=== PATIENT | male | born 1985 | race Caucasian/White ===

== ENCOUNTER 2019-11-28 16:57 | Emergency (ER) | payer OTHER, SELFPAY ==
[2019-11-28 17:07] VITALS: BP 181/96; PULSE 76; RESP 18; TEMP 37.1; O2SAT 100
--- NOTE | 2019-11-28 17:07 | ED.DENTAL ---
HPI - Dental/Oral General Chief complaint: Dental/Oral Stated complaint: Tooth Ache Time Seen by Provider: 11/28/19 17:07 Source: patient and RN notes reviewed History of Present Illness HPI Narrative: Patient is a 34-year-old male that presents the urgent care with complaints of left facial swelling and dental pain. Patient states that started 1 week ago and have been intermittent. 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 Patient denies any known fever, nausea, vomiting. Patient has been using Tylenol, ibuprofen. No other acute complaints. Patient does appear to be in pain. Patient aware the plan of care. Related Data Home Medications Medication Instructions Recorded Confirmed aspirin 81 mg PO DAILY 11/28/19 11/28/19 atorvastatin 80 mg PO DAILY 11/28/19 11/28/19 carvedilol [Coreg] 6.25 mg PO BID 11/28/19 11/28/19 clopidogrel [Plavix] 75 mg PO DAILY 11/28/19 11/28/19 losartan 50 mg PO DAILY 11/28/19 11/28/19 Allergies Allergy/AdvReac Type Severity Reaction Status Date / Time No Known Allergies Allergy Mild Verified 11/28/19 17:16 Review of Systems Review of Systems: Narrative: CONSTITUTIONAL: Denies fever, chills, or sweats. EYES: Denies visual changes, redness, or discharge. ENT: Denies rhinorrhea, congestion, sore throat, or otalgia. Reports of left upper dental pain with left facial swelling CARDIOVASCULAR: Denies chest pain, palpitations, or edema. RESPIRATORY: Denies cough or dyspnea. GASTROINTESTINAL: Denies abdominal pain, nausea, vomiting, or diarrhea. GENITOURINARY: Denies dysuria or hematuria. SKIN: Denies rash or itching. MUSCULOSKELETAL: Denies back pain, joint pain, or myalgia. NEUROLOGIC: Denies headache, numbness, or weakness. All other systems reviewed are negative, except as documented in HPI. PMFSH Social History Social History Gender identity (if verbalized by the patient): Male Comments At the time of my signature, I reviewed and agree with the nursing past medical, surgical, social, and family history. There is no relevant family history pertinent to the patient complaint. Exam Narrative: Exam Narrative: GENERAL: This is a well-nourished, well-developed patient, in no apparent distress. HEAD: normocephalic, atraumatic. EYES: PERRL. Sclera clear/white. Vision is grossly intact. EARS: External ears normal NOSE: External nose normal with no obvious nasal discharge THROAT: Mucous membranes moist DENTAL: Trench mouth. Poor dental hygiene throughout. Completely avulsed dentition, down to the gumline, to the left upper quadrant. Moderate erythema and edema noted to the left upper quadrant with mild facial swelling and tenderness NECK: Neck supple CARDIOVASCULAR: Regular rate and rhythm without murmurs, gallops, or rubs. RESPIRATORY: Clear to auscultation. Breath sounds equal bilaterally. No wheezes, rales, or rhonchi. SKIN: warm, intact with no suspicious lesions or rash, good texture and turgor. NEURO: awake, alert, and oriented to person, place and time. There were no obvious focal neurologic abnormalities. EXTREMITIES: No clubbing, cyanosis, or edema. Course Vital Signs Vital signs: Vital Signs Temperature 98.7 F 11/28/19 17:07 Pulse Rate 76 11/28/19 17:07 Respiratory Rate 18 11/28/19 17:07 Blood Pressure 181/96 H 11/28/19 17:07 Pulse Oximetry 100 11/28/19 17:07 Temperature 98.7 F 11/28/19 17:07 Pulse Rate 76 11/28/19 17:07 Respiratory Rate 18 11/28/19 17:07 Blood Pressure 181/96 H 11/28/19 17:07 Pulse Oximetry 100 11/28/19 17:07 Reviewed?patient is informed that they may have pre-hypertension or hypertension based on a blood pressure reading in the department. I recommend the patient call the primary care provider listed on their discharge instructions or a physician of their choice this week to arrange follow-up for further evaluation of possib
== END 2019-11-28 17:26 | disposition home or self-care (01) ==
PROVIDERS: Emergency Provider Nurse Practitioner Family
DX: K04.7 Periapical abscess without sinus (principal); K02.9 Dental caries, unspecified; K05.10 Chronic gingivitis, plaque induced; E78.00 Pure hypercholesterolemia, unspecified; I10 Essential (primary) hypertension; I25.2 Old myocardial infarction; F17.200 Nicotine dependence, unspecified, uncomplicated
CPT/HCPCS: 99213; G0463

== ENCOUNTER 2021-09-16 14:04 | Outpatient (CLI) | payer OTHER, SELFPAY ==
--- NOTE | 2021-09-16 | ECG_ITS ---
Measurements Intervals [place] Rate: 54 P: 42 [place]: 175 QRS: -6 QRSD: 109 T: 63 QT: 437 QTc: 417 Interpretive Statements SINUS BRADYCARDIA BORDERLINE T WAVE ABNORMALITY- HIGH LATERAL LEADS BASELINE ARTIFACT- I, III, AVR, AVL, V4 BORDERLINE ECG Electronically Signed On 09-16-2021 15:22:25 [employer] RINK ATTENDANT by Eyad Santos D.O.
[2021-09-16 14:46] LABS: Anion Gap 6 mmol/L (8-16); Blood Urea Nitrogen 9 mg/dL (9-20); Calcium 9.4 mg/dL (8.4-10.2); Carbon Dioxide 28 mmol/L (22-30); Chloride 100 mmol/L (98-107); Estimated Glomerular Filt Rate > 60; Glucose 83 mg/dL (65-110); Potassium 4.2 mmol/L (3.4-5.0); Sodium 134 mmol/L (137-145)
== END 2021-09-16 14:05 | disposition home or self-care (01) ==
PROVIDERS: Visit Provider Orthopaedic Surgery Hand Surgery
DX: M25.531 Pain in right wrist (principal); R94.31 Abnormal electrocardiogram [ECG] [EKG]
CPT/HCPCS: 36415; 80048; 93005

== ENCOUNTER 2023-03-09 10:28 | Emergency (ER) | payer OTHER, SELFPAY ==
--- NOTE | ~2023-03-09 | XR_ITS ---
EXAMINATION: XR wrist RT min 3V DATE: 03/09/2023 11:01 INDICATION: Right wrist pain post bowling TECHNIQUE: Posteroanterior, ulnar deviation, oblique, and lateral views of the right wrist were obtai marcela. COMPARISON: none FINDINGS: 2-3 mm ulnar minus variance. Alignment is otherwise normal. Cannulated compression screw likely for f ixation of an old right radial styloid fracture which has healed with essentially no discernible defo rmity. No acute fractures identified. There are couple lucent lesions with some surrounding sclerosis at the lunate and proximal pole of the scaphoid which could be degenerative in etiology or related t o osteonecrosis. Joint spaces however appear relatively normal. Soft tissues are unremarkable. IMPRESSION: 1. Screw fixation of a likely old healed radial styloid fracture which is healed in essentially anato es alignment. No acute fractures identified. 2. Sclerosis surrounding central lucent lesions at the lunate and proximal pole of the scaphoid which raises concern for osteonecrosis. Reviewed, dictated and finalized at location A. IMPRESSION: 1. Screw fixation of a likely old healed radial styloid fracture which is heale d in essentially anatomic alignment. No acute fractures identified. 2. Sclerosis surrounding central lucent lesions at the lunate and proximal pole of the scaphoid which raises concern for osteonecrosis.
--- NOTE | 2023-03-09 10:30 | ED.EXTPRO ---
HPI - Extremity Problem General Chief complaint: Extremity Injury, Upper Stated complaint: Right Wrist Pain Time Seen by Provider: 03/09/23 10:30 Source: patient Mode of arrival: ambulatory Limitations: no limitations History of Present Illness HPI Narrative: Hakeem is a 38-year-old male patient presenting to clinic today with complaints of right wrist pain x1 week. He reports last week he bowled indeterminate and bowled 5 games. States that when he pulled the 5th game he could barely lift the ball was having a lot of pain to the medial and lateral wrist. Is having pain with flexion and extension of the wrist. History of wrist fracture with hardware and tendon damage. Related Data Home Medications Medication Instructions Recorded Confirmed aspirin 81 mg chewable tablet 81 mg PO DAILY 11/28/19 03/09/23 atorvastatin 80 mg tablet 80 mg PO DAILY 11/28/19 03/09/23 carvedilol 6.25 mg tablet (Coreg) 6.25 mg PO BID 11/28/19 03/09/23 losartan 50 mg tablet 50 mg PO DAILY 11/28/19 03/09/23 Allergies Allergy/AdvReac Type Severity Reaction Status Date / Time No Known Allergies Allergy Mild Verified 11/28/19 17:16 Review of Systems Review of Systems: Pertinent positives per HPI. Patient denies any fever, chills, rash, headache, visual changes, dizziness, cough, runny nose, sore throat, shortness of breath, chest pain, palpitations, nausea, vomiting, diarrhea, constipation, abdominal pain, or any urinary issues. PMFSH Social History Social History Gender identity (if verbalized by the patient): Male Comments At the time of my signature, I reviewed and agree with the nursing past medical, surgical, social, and family history. There is no relevant family history pertinent to the patient complaint. Exam Narrative: General: Well-developed, well nourished, in no apparent distress Head: Normocephalic, atraumatic. Cardio: Regular rate and rhythm, s1 and s2 normal, no murmur appreciated. Resp: Clear to auscultation bilaterally, no rhonchi, rales, wheezing or rubs. Musculoskeletal: No deformity, tender to palpation over the medial and lateral right wrist, limited flexion and extension due to pain, muscle strength strong and equal, peripheral pulse strong, no edema, no cyanosis, normal gait and station Course Course Emergency Course: Portions of this record may have been created with voice recognition software. Level of Care: Express Care Visit Vital Signs Vital signs: Vital signs reviewed MDM - Extremity (Nontraumatic) MDM Narrative Medical decision making narrative: At the time of visit patient is resting comfortably on the exam table. X-ray of the right wrist was performed and is negative for any sign of fracture or malalignment. Screw is in place in the radius. X-ray does show to lesions potentially for osteonecrosis. I suspect patient may have tendinitis with osteonecrosis. Discussed use of a wrist forearm splint and anti-inflammatories. Recommend PT. Supportive measures were discussed with the patient he voiced understanding discharge instructions and agrees to treatment plan. Differential Diagnosis Differential diagnosis: Likely other (Arthritis, tendinitis, wrist fracture, wrist sprain) Imaging Data Radiologist's impression: Close Wrist X-Ray (Signed) Esvin Mejia - 03/09/23 Launch?[place] [address] XRay Report Signed Patient: Hakeem Guardado : 1985 MR#: [id number] Age/Sex: 38 / M Acct:[id number] Loc: [facility]PC[facility]? ? ADM Date: 03/09/23Attending Dr: Ordering Physician: Ernst Hernandez APRN Date of Service: 03/09/23 Procedure(s): XR wrist RT min 3V Accession Number(s): [id number] cc: Ernst Hernandez APRN; P[employer]CR[employer] WALL TECHNICIAN PHYSICIAN~ EXAMINATION: XR wrist RT min 3V DATE: 03/09/2023 11:01 INDICA
[2023-03-09 10:39] VITALS: BP 149/81; PULSE 67; RESP 16; TEMP 36.8; O2SAT 99
[2023-03-09 10:40] VITALS: BP 149/81; PULSE 67; RESP 16; TEMP 36.8; O2SAT 99
== END 2023-03-09 11:27 | disposition home or self-care (01) ==
PROVIDERS: Emergency Provider Nurse Practitioner Family
DX: M67.833 Other specified disorders of tendon, right wrist (principal); M87.9 Osteonecrosis, unspecified
CPT/HCPCS: 73110; 99213; G0463

== ENCOUNTER → 2024-07-25 09:17 | Outpatient (REF) | payer OTHER, SELFPAY | LOC: ANHLAB 09:17 | PROVIDERS: Visit Provider Plastic Surgery | DX: L72.0 Epidermal cyst (principal) | CPT/HCPCS: 88304; 88305 ==

== ENCOUNTER 2024-10-14 23:45 | Emergency (ER) | payer OTHER, SELFPAY ==
--- NOTE | ~2024-10-14 | XR_ITS ---
XR chest 1V portable DATE: 10/15/2024 00:26 INDICATION: Chest pain. History of myocardial infarction in 2019 TECHNIQUE: Portable upright AP views on 10/15/2024 at 0022 hours COMPARISON: None FINDINGS: Heart size appears borderline; heart size isnot optimally evaluated on AP projection becaus e of magnification. There is mild pulmonary vascular congestion. Mild patchy infiltrates in the mid and lower lung zones. Consider pulmonary edema, pneumonia. No pleural effusion or pneumothorax is noted. IMPRESSION: Mild infiltrates in the mid and lower lung zones; consider pulmonary vascular congestion and pulmonary edema, pneumonia. Reviewed, dictated and finalized at location A. NG ADJUSTER IMPRESSION: Mild infiltrates in the mid and lower lung zones; consider pulmonar y vascular congestion and pulmonary edema, pneumonia.
[2024-10-14 23:45] VITALS: BP 172/108; PULSE 70; RESP 15; O2SAT 98
[2024-10-14 23:55] VITALS: O2SAT 97
[2024-10-14 23:58] VITALS: PULSE 77
--- NOTE | 2024-10-14 23:58 | ECG_ITS ---
Test Date: 2024-10-14 23:49:12 Measurements Intervals [place] Rate: 70 P: 41 [place]: 161 QRS: -18 QRSD: 116 T: 120 QT: 401 QTc: 434 Interpretive Statements SINUS RHYTHM POSSIBLE LEFT ATRIAL ENLARGEMENT [-0.1mV P WAVE IN V1/V2] INCOMPLETE RIGHT BUNDLE BRANCH BLOCK [90+ ms QRS DURATION, TERMINAL R IN V1/V2, 40+ ms S IN I/aVL/V4/V5/V6] ST DEVIATION AND MODERATE T-WAVE ABNORMALITY, CONSIDER LATERAL ISCHEMIA [-0.1+ mV T WAVE IN I/aVL/V5/V6] No previous ECG available for comparison Electronically Signed On 10-18-2024 16:00:08 DIRECTOR OF AGRONOMY by Kassidy Saldaña M.D.
[2024-10-15] MEDS: NITROGLYCERIN SL 0.4 MG TABLET SUBLINGUAL (00:07)
[2024-10-15] MEDS: ASPIRIN 81 MG CHEWABLE TABLET 182 MG PO (00:08)
[2024-10-15] MEDS: MORPHINE SULFATE (*CRX) 4 MG/ML INJ IV PUSH (00:08)
--- NOTE | 2024-10-15 00:13 | ED_ITS ---
HPI - General Adult General Chief complaint: Chest Pain Stated complaint: SUBSTERNAL CP RADIATING DOWN BILATERAL ARMS. Time Seen by Provider: 10/14/24 23:50 History of Present Illness HPI narrative: patient is a 39-year-old gentleman who presents emergency department with chief complaint of chest pain. Patient reports that he had been gambling and having some drinks this evening and started having pain in his chest. The patient reports that it radiated to both of his arms reports that felt similar to whenever he had to have a stent placed in [place] was very in 2019 patient reports that he is still followed by cardiology in [place] and reports that he does smoke cigarettes and had about 8 beers this evening patient states his pain is doing better at this time but is not 100% resolved Related Data Home Medications ?Medication ?Instructions ?Recorded ?Confirmed ?Last Taken ?Type aspirin 81 mg chewable tablet 81 mg PO DAILY 11/28/19 03/09/23 Unknown History atorvastatin 80 mg tablet 80 mg PO DAILY 11/28/19 03/09/23 Unknown History carvedilol 6.25 mg tablet (Coreg) 6.25 mg PO BID 11/28/19 03/09/23 Unknown History losartan 50 mg tablet 50 mg PO DAILY 11/28/19 03/09/23 Unknown History Allergies Allergy/AdvReac Type Severity Reaction Status Date / Time No Known Allergies Allergy Mild Verified 08/01/24 10:29 Review of Systems 2 Review of Systems: A 10 system review of systems was completed on the patient and is negative except for what is stated in the HPI. Nursing and ancillary documentation was reviewed. [facility] Social History Social History Smoking status: Never smoker Gender identity (if verbalized by the patient): Male Exam 2 Narrative: GENERAL: Well-appearing, well-nourished, and in no acute distress. HEAD: Normocephalic, atraumatic. EYES: PERRLA and EOMI. ENT: Nares clear, no rhinorrhea or epistaxis. Mucous membranes moist. NECK: Supple. CHEST: Clear to auscultation. No respiratory distress. HEART: Regular rate and rhythm. No murmur heard. Normal peripheral pulses. ABDOMEN: Soft, nontender, nondistended, normal active bowel sounds. EXTREMITIES: Normal range of motion. No edema. SKIN: Warm, dry, no rash. NEURO: No focal deficits. Alert and oriented x3. PSYCH: Normal mood and affect. Course Vital Signs Vital signs: Vital Signs Pulse Rate 70 10/14/24 23:45 Respiratory Rate 15 10/14/24 23:45 Blood Pressure 172/108 H 10/14/24 23:45 Pulse Oximetry 98 10/14/24 23:45 Oxygen Delivery Room Air 10/14/24 23:45 Temperature 36.8 C 10/15/24 00:46 Pulse Rate 70 10/15/24 02:53 Respiratory Rate 20 10/15/24 02:53 Blood Pressure 140/90 10/15/24 02:53 Pulse Oximetry 95 10/15/24 02:53 Oxygen Delivery Room Air 10/14/24 23:55 Medical Decision Making MDM Narrative Medical decision making narrative: Differential diagnosis includes ACS, gastritis, pneumothorax, pneumonia pancreatitis Laboratory studies were obtained on the patient showed normal CBC CMP was within normal limits lipase was normal troponin was 0 hour and 3 hour Patient's pain was removed with a GI cocktail the patient will be discharged home to follow-up with his primary care provider Vital Signs Vital Signs: Vital Signs Pulse Rate 70 10/14/24 23:45 Respiratory Rate 15 10/14/24 23:45 Blood Pressure 172/108 H 10/14/24 23:45 Pulse Oximetry 98 10/14/24 23:45 Oxygen Delivery Room Air 10/14/24 23:45 Temperature 36.8 C 10/15/24 00:46 Pulse Rate 70 10/15/24 02:53 Respiratory Rate 20 10/15/24 02:53 Blood Pressure 140/90 10/15/24 02:53 Pulse Oximetry 95 10/15/24 02:53 Oxygen Delivery Room Air 10/14/24 23:55 Lab Data 10/14/24 23:59 10/14/24 23:59 Labs: Lab Results 10/14/24 10/15/24 Range/Units 23:59 03:06 WBC 6.9 (4.5-10.0) K/mm3 RBC 4.31 L (4.6-6.20) M/mm3 Hgb 14.3 (14.0-18.0) g/dL Hct 39.7 L (42.0-52.0) % MCV 92.1 (80-100) fl MCH 33.2 (26-34) pg MCHC 36.0 (32-36) g/dl RDW 12.5 (11.5-14.5) % Plt Count 148 L (150-375) k/mm3 MPV 11.5 H (7.4-10.4) fl Immature Gran % (Auto) 0.3 (0-0.5) % Neut % (Auto) 50.7 (45.5-73.1) % Lymph % (Auto) 35.7 (18.3-44.2) % [place] % (Auto) 9.3 H (2.6-8.5) % Eos % (Auto) 3.3 (0-4.4) % Baso % (Auto) 0.7 (0.2-1.2) % Lymph # (Auto) 2.45 (0.9-3.2) K/mm3 [place] # (Auto) 0.6 (0.1-0.6) K/mm3 Eos # (Auto) 0.2 (0-0.3) K/mm3 Baso # (Auto) 0.1 (0.0-0.1) K/mm3 Abs Immat Gran (auto) 0.02 (0.00-0.031) K/mm3 Absolute Neuts (auto) 3.5 (1.3-6.7) K/mm3 Absolute Nucleated RBC 0.000 (0.0-0.012) K/mm3 Nucleated RBC % 0.0 (0.0-0.2) % PT 13.1 (11.1-14.7) Seconds INR 1.0 APTT 26.6 (22.3-36.8) Seconds Sodium 137 (137-145) mmol/L Potassium 3.9 (3.4-5.0) mmol/L Chloride 107 (98-107) mmol/L Carbon Dioxide 22 (22-30) mmol/L Anion Gap 8 (4-12) mmol/L BUN 14 D (9-20) mg/dL Creatinine 1.00 (0.7-1.3) mg/dL Estim Creat Clear Calc 131 ml/min Estimated GFR > 60 (59 - ) Glucose 107 (65-110) mg/dL Calcium 9.4 (8.4-10.2) mg/dL Total Bilirubin 0.6 (0.2-1.3) mg/dL AST 30 (17-59) U/L ALT 32 (6-50) U/L Alkaline Phosphatase 70 (38-126) U/L Troponin I < 0.012 < 0.012 (0.000-0.034) ng/mL NT-Pro-B Natriuret Pep 113 H (19.9-100) pg/mL Total Protein 8.0 (6.3-8.2) g/dL Albumin 4.5 (3.5-5.1) g/dL Lipase 79 (23-300) U/L Discharge Plan Discharge Clinical Impression: Atypical chest pain Patient Disposition: Home, Self-Care Condition: Stable Instructions: Antibiotic Form, Chest Pain (ED) Patient Language: [place] Prescriptions: No Action losartan 50 mg Tablet 50 mg PO DAILY atorvastatin 80 mg Tablet 80 mg PO DAILY carvedilol [Coreg] 6.25 mg Tablet 6.25 mg PO BID aspirin 81 mg Tablet,Chewable 81 mg PO DAILY Follow-up/Referrals: Wyatt,Rekha Brewer MD [Primary Care Provider] - Time of Disposition: 04:39
[2024-10-15 00:17] LABS: Alanine Aminotransferase 32 U/L (6-50); Albumin Level 4.5 g/dL (3.5-5.1); Alkaline Phosphatase 70 U/L (38-126); Anion Gap 8 mmol/L (4-12); Aspartate Amino Transferase 30 U/L (17-59); Bilirubin,Total 0.6 mg/dL (0.2-1.3); Blood Urea Nitrogen 14 mg/dL (9-20); Calcium 9.4 mg/dL (8.4-10.2); Carbon Dioxide 22 mmol/L (22-30); Chloride 107 mmol/L (98-107); Estimated CRCL calculation 131 ml/min; Estimated Glomerular Filt Rate > 60; Glucose 107 mg/dL (65-110); Lipase 79 U/L (23-300); Potassium 3.9 mmol/L (3.4-5.0); Sodium 137 mmol/L (137-145)
[2024-10-15 00:23] LABS: Basophils Absolute Auto 0.1 K/mm3 (0.0-0.1); Basophils Percent Auto 0.7 % (0.2-1.2); Eosinophils Absolute Auto 0.2 K/mm3 (0-0.3); Eosinophils Percent Auto 3.3 % (0-4.4); Hematocrit 39.7 % (42.0-52.0); Hemoglobin 14.3 g/dL (14.0-18.0); Immature Granulocyte Absolute 0.02 K/mm3 (0.00-0.031); Immature Granulocyte Percent A 0.3 % (0-0.5); Lymphocytes Absolute Auto 2.45 K/mm3 (0.9-3.2); Lymphocytes Percent Auto 35.7 % (18.3-44.2); Mean Corpuscular Hemoglobin 33.2 pg (26-34); Mean Corpuscular Volume 92.1 fl (80-100); Mean Platelet Volume 11.5 fl (7.4-10.4); Monocytes Absolute Auto 0.6 K/mm3 (0.1-0.6); Monocytes Percent Auto 9.3 % (2.6-8.5); Neutrophils Absolute Auto 3.5 K/mm3 (1.3-6.7); Neutrophils Percent Auto 50.7 % (45.5-73.1); Platelet Count Result 148 k/mm3 (150-375); Red Blood Count 4.31 M/mm3 (4.6-6.20); Red Cell Distribution Width 12.5 % (11.5-14.5); White Blood Count 6.9 K/mm3 (4.5-10.0)
[2024-10-15 00:26] LABS: NT Pro B Type Natriuretic Pept 113 pg/mL (19.9-100)
[2024-10-15 00:36] LABS: Partial Thromboplastin Time 26.6 Seconds (22.3-36.8); Prothrombin Time 13.1 Seconds (11.1-14.7)
[2024-10-15 00:42] LABS: Troponin I < 0.012 ng/mL (0.000-0.034)
[2024-10-15 00:46] VITALS: BP 165/96; PULSE 74; RESP 21; TEMP 36.8; O2SAT 95
[2024-10-15] MEDS: BELLADONNA ALK/PHENOB ELIX 10 ML, MAG HYDROX/ALUMINUM HYD/SIMETH 30 ML, LIDOCAINE 2% VI... PO (01:02)
[2024-10-15 02:53] VITALS: BP 140/90; PULSE 70; RESP 20; O2SAT 95
--- NOTE | 2024-10-15 03:22 | ECG_ITS ---
Test Date: 2024-10-15 03:25:10 Measurements Intervals [place] Rate: 64 P: 8 [place]: 149 QRS: -7 QRSD: 117 T: 93 QT: 428 QTc: 443 Interpretive Statements SINUS RHYTHM INCOMPLETE RIGHT BUNDLE BRANCH BLOCK [90+ ms QRS DURATION, TERMINAL R IN V1/V2, 40+ ms S IN I/aVL/V4/V5/V6] ST DEVIATION AND MODERATE T-WAVE ABNORMALITY, CONSIDER LATERAL ISCHEMIA Compared to ECG 10/14/2024 23:49:12 NO SIGNIFICANT CHANGES Electronically Signed On 10-18-2024 16:03:30 WASTE WATER TREATMENT PLANT OPERATOR by Kassidy Saldaña M.D.
[2024-10-15 03:34] LABS: Troponin I < 0.012 ng/mL (0.000-0.034)
[2024-10-15 04:50] VITALS: BP 147/89; PULSE 75; RESP 15; O2SAT 96
--- OUTSIDE RECORDS SUMMARY | 2024-10-22 00:15 | XMS_ITS | Encounter Summary ---
Author Organization [facility] Healthcare Address [address] [place] [address] Care Team Providers Care Front Maker Lockstitch Name Role Phone Unknown, Notinfile Primary Care Provider Unavail able Reason for Visit * Reason Comments Chest Pain Encounter Details Date Type Department Care Team (Late st Contact Info) Description 04/26/2019 3:55 PM CDT - 04/26/2019 4:55 PM CDT Surgery [facility] Cardiology [address] [place] [address] Jason Faustin MD [address] [address] LEFT HEART CATHETERIZATION WITH CORONARY ANGIOGRAPHY AND WITH OR WITHOUT LEFT VENTRICULOGRAM [address] Surgery Details Date/Time Status Location OR Service Patient Class Case Class Case Type Trauma Case? 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 Cardiovascular Emergency Emergent Panel 1 Procedure LRB Anes Op Region Wound Class Comments LEFT HEART CATHETERIZATION W ITH CORONARY ANGIOGRAPHY AND WITH OR WITHOUT LEFT VENTRICULOGRAM [address]7624 N/A Conscious Sedation Surgeon Surgeon Role Service Panel Jason Faustin MD Primary Cardiovascular 1 documented in this encounter Social History Tobacco Use Types Packs/Day Years Used Date Smoking Tobacco: Every Day Cigarettes 1.5 23 Tobacco Cessation:Ready to Q uit: No; Counseling Given: No Comments:refused Alcohol Use Standard Drinks/Week Comments Not Currently 0 (1 standard drink = 0.6 oz pur e alcohol) Sex and Gender Information Value Date Recorded Sex Assigned at Not on file 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 Gender Identity Not on file Sexual Orientation Not on file documented as of this encounter Last Filed Vital Signs Vital Sign Reading Time Taken Comments Blood Pressure 143/86 04/26/2019 4:45 PM CDT Pulse 77 04/26/2019 4:45 PM CDT Temperature 36.6 ??C (97.9 ??F) 04/26/2019 4:20 PM CD T Respiratory Rate 17 04/26/2019 4:45 PM CDT Oxygen Saturation 98% 04/26/2019 4:45 PM CDT Inhaled Oxygen Concentration - - Weight 128 kg (282 lb 3 oz) 04/26/2019 4:20 PM C DT Height 188 cm (6' 2 ) 04/26/2019 4:20 PM CDT Body Mass Index 35.96 04/28/2019 5:00 AM CDT documented in this encounter Discharge Summaries * Jason Faustin MD - 04/28/2019 7:31 AM CDT Inpatient Discharge Summary BRIEF OVERVIEW Admitting Provider: Jason Faustin MD Discharge Provider: Jason Faustin MD Primary Care Physician at Discharge: Notinfile Unknown None Admission Date: 04/26/2019 Discharge Date: 04/28/2019 Admission Location: [facility] Primary Discharge Diagnosis: 1. SEVERE CAD. ??Anterior STEMI. ??Last [facility] on 04/26/2019. ? EKG. ??04/26/2019. ??Mild [address] elevations in the anterolateral leads. ??Normal sinus rhythm. ? LAD. ??100% acute proximal occlusion. ??3.5 mm Xience BERNADETTE post dilated to 4 mm. ? Circumflex. ??Dominant circulation. ??30% plaquing ? LVEDP of 30 mmHg with no gradient across aortic valve ? Left ventriculargram demonstrates a ejection fraction of 35% with anterior apical hypokinesis to akinesis. ? Echo. 04/27/2019. EF 57%. No wall motion abnormalities. No valvular abnormalities. 2. Tobacco abuse 3. NKDA 4. FHx:?Father had an LA at age 35 ?? Secondary Discharge Diagnosis: No Active Problems: There are no active problems currently on the Problem List. Please update the Problem List and refresh. DETAILS OF HOSPITAL STAY Presenting Problem/History of Present Illness: Chest pain Hospital Course: Patient is a pleasant 34-year-old white male who I am meeting for the 1st time. He presented with chest pain. His EKG was changing rapidly. He had intermittent ST elevations. When I saw him in the emergency room he was still having chest pain. I took him emergently to the rn labor delivery. He had 100% acutely occluded LAD. He underwent successful stenting. His peak troponin was 2. We did an echocardiogram 1 day after his LA and his ejection fraction was normal at 57%. There was no noticeable wall motion abnormalities. On his Left ventriculargram his ejection fraction was only 35%. He otherwise feels good. No bad orthopnea, PND or lower extremity edema. Active Issues Requiring Follow-up: None Test Results Pending at Discharge: Order Current Status POCT activated clotting time Preliminary result Operative Procedures Performed: Procedure(s): LEFT HEART CATHETERIZATION WITH CORONARY ANGIOGRAPHY AND WITH OR WITHOUT LEFT VENTRICULOGRAM 44[address] Other Procedures: See chart Pertinent Test Results: See chart Discharge Details Physical Exam at Discharge: Discharge Condition: good Pulse: 55 Resp: 20 BP: 149/83 Temp: 36.4 ??C (97.5 ??F) Weight: 127.1 kg (280 lb 3.3 oz) Pertinent Exam Findings at Discharge: Physical Exam Constitutional: He is oriented to person, place, and time. He appears well- developed and well-nourished. No distress. HENT: Head: Normocephalic and atraumatic. Eyes: EOM are normal. Neck: Normal range of motion. Neck supple. Cardiovascular: Normal rate and regular rhythm. Exam reveals no gallop and no friction rub. No murmur heard. Pulmonary/Chest: Effort normal and breath sounds normal. No respiratory distress. He has no rales. Abdominal: Soft. Bowel sounds are normal. He exhibits no distension. There is no tenderness. There is no guarding. Musculoskeletal: He exhibits no edema. Neurological: He is alert and oriented to person, place, and time. Skin: No rash noted. Psychiatric: He has a normal mood and affect. Discharge Disposition: Discharge to home or self care Code Status at Discharge: full Discharge Instructions: Diet Instructions Heart Healthy diet-see attached papers .TOI Muller, [facility] [phone] ?? follow-up in 2 weeks with me ?? Patient take all medicines as prescribed ?? Patient contact us with any problems or concerns Discharge Medications: Current Medications TAKE these medications aspirin 81 mg enteric coated tablet Take 1 tablet (81 mg total) by mouth daily atorvastatin 80 mg tablet Commonly known as: LIPITOR Take 1 tablet (80 mg total) by mouth nightly carvedilol 6.25 mg tablet Commonly known as: COREG Take 1 tablet (6.25 mg total) by mouth 2 (two) times a day famotidine 20 mg tablet Commonly known as: PEPCID Take 1 tablet (20 mg total) by mouth daily as needed for indigestion or heartburn losartan 50 mg tablet Commonly known as: COZAAR Take 1 tablet (50 mg total) by mouth daily ticagrelor 90 mg tablet Commonly known as: BRILINTA Take 1 tablet (90 mg total) by mouth 2 (two) times a day Outpatient Follow-Up: No future appointments. Contact Information for Follow-ups Follow-up with providerFollow up with Dr. Faustin's nurse in 2 weeks Next Steps: Follow up Instructions: Follow up with Dr. Faustin's nurse in 2 weeks Questions: Instructions for follow-up: Follow up with Dr. Faustin's nurse in 2 weeks Notinfile Unknown Relationship: PCP - General Next Steps: Follow up documented in this encounter Discharge Instructions * Discharge Instructions* Barby Salazar RN - 04/28/2019 10:36 AM CDT Cardiac Catheterization Discharge Instructions Follow Up Appointment ??? [facility] will notify you of your appointment. Please contact them at [phone] if you do not receive an appointment within 7 to10 days. Activity ??? Increase your activity as tolerated. ??? No driving for 24 hours,unless you are told otherwise by your doctor. ??? No lifting over 5 to 10 pounds for 1 week. ??? If the test was done from your wrist: Do NOT lift over two gallons of milk or bend your affected wrist for five days. ??? No strenuous exercise for 1 week. This includes lifting, straining or activity greater than walking. ??? Begin cardiac rehab in 1 to 2 weeks, unless told otherwise by your doctor. Hydration In order to prevent kidney damage, it is important to hydrate after your procedure. Please drink anadditional cups of water today. Not applicable, hydration completed. Insertion Site Care ??? Check your puncture site daily. If your dressing is not removed before you are discharged, please remove it at home. ??? Keep your puncture site clean and dry. Do not apply powder, ointment, or lotion to the site for1 week. ??? No tub baths, swimming pools, or hot tubs for 1 week. Do NOT submerge wrist for one week if thetest was done from your wrist. ??? If the test was done from your wrist: You may remove the TR-Band the morning after your procedure. ??? If a large amount of bleeding occurs at your puncture site, hold firm pressure and call 911. Medications ??? Follow these precautions while you are taking anticoagulants (Coumadin, Pradaxa, Eliquis, Xarelto, Plavix, Effient, or Aspirin): Get periodic blood tests; use only an electric razor; avoid activities involving tools which will cut; and call your doctor if you notice blood in your urine or stool. General Instructions ??? Carry your stent card with you at all times. ??? DO NOT smoke or use tobacco products. DO NOT use products containing nicotine (nicotine patches, gum, inhalers, lozenges, electronic cigarettes, etc.), unless approved by your doctor. When To Call Your Doctor ??? Increased swelling or unusual pain at your puncture site or discoloration below your puncture site ??? Blood in your urine or stool ??? Any questions or concerns If for any reason you feel your life is in danger, call 911 immediately. * Discharge Instr - Diet* Anu Shabazz RD - 04/27/2019 1:21 PM CDT Heart Healthy diet-see attached papers .Anu HOBSON, TOI, [facility] [phone] * Attachments The following attachments cannot be sent through Care Everywhere. * DASH Eating Plan (Electric Distribution Checker) (Micronesian) * Cholesterol and Your Health (Electric Distribution Checker) (Micronesian) * How to Stop Smoking (Electric Distribution Checker) (Micronesian) * Heart Failure (Electric Distribution Checker) (Micronesian) * Aspirin (By mouth) (Micronesian) * Carvedilol (By mouth) (Micronesian) * Losartan (By mouth) (Micronesian) * Famotidine (By mouth) (Micronesian) * Ticagrelor (By mouth) (Micronesian) * Atorvastatin (By mouth) (Micronesian) documented in this encounter Medications at Time of Discharge aspirin 81 mg enteric coated tabletIndication s:cardiovascular disease Take 1 tablet (81 mg total) by mouth daily 30 tablet 11 04/28/2019 4 atorvastatin (LIPITOR) 80 mg tabletIndication s:myocardial infarction prevention Take 1 tablet (80 mg total) by mouth nightly 90 tablet 3 04/28/2019 4 carvedilol (COREG) 6.25 mg tabletIndication s:cardiovascular disease Take 1 tablet (6.25 mg total) by mouth 2 (two) times a day 180 tablet 3 04/28/2019 4 famotidine (PEPCID) 20 mg tabletIndication s:Prevention of Stress Ulcer Take 1 tablet (20 mg total) by mouth daily as needed for indigestion or heartburn 30 tablet 11 04/28/2019 4 losartan (COZAAR) 50 mg tabletIndication s:cardiovascular disease Take 1 tablet (50 mg total) by mouth daily 90 tablet 3 04/28/2019 4 ticagrelor (BRILINTA) 90 mg tabletIndication s:cardiovascular disease Take 1 tablet (90 mg total) by mouth 2 (two) times a day 60 tablet 8 04/28/2019 4 documented as of this encounter Ordered Prescriptions Prescription Sig Dispense Quantity Refills Last Filled Start Date End Date ticagrelor (BRILINTA) 90 mg tabletIndications: cardiovascular disease Take 1 tablet (90 mg total) by mouth 2 (two) times a day 60 tablet 8 04/28/2019 4 ticagrelor (BRILINTA) 90 mg tabletIndications: cardiovascular disease Take 1 tablet (90 mg total) by mouth 2 (two) times a day 180 tablet 2 04/28/2019 9 losartan (COZAAR) 50 mg tabletIndications: cardiovascular disease Take 1 tablet (50 mg total) by mouth daily 90 tablet 3 04/28/2019 4 famotidine (PEPCID) 20 mg tabletIndications: Prevention of Stress Ulcer Take 1 tablet (20 mg total) by mouth daily as needed for indigestion or heartburn 30 tablet 11 04/28/2019 4 carvedilol (COREG) 6.25 mg tabletIndications: cardiovascular disease Take 1 tablet (6.25 mg total) by mouth 2 (two) times a day 180 tablet 3 04/28/2019 4 atorvastatin (LIPITOR) 80 mg tabletIndications: myocardial infarction prevention Take 1 tablet (80 mg total) by mouth nightly 90 tablet 3 04/28/2019 4 aspirin 81 mg enteric coated tabletIndications: cardiovascular disease Take 1 tablet (81 mg total) by mouth daily 30 tablet 11 04/28/2019 4 documented in this encounter Discharge Disposition Disposition Code Departure Means Destination Discharge to home or self care documented in this encounter Progress Notes * Jasmina Mckeon, RD - 04/28/2019 9:49 AM CDT Nutrition Note Reason for Assessment: Follow Up and Diet Education Encounter Date: 04/28/19 9:49 AM Nutrition Assessment and Plan: Patient is a 34 y.o. male. Admit Dx: CP. Admitted on 04/26/2019, current LOS is 2 days. Current diet order: Adult Diet Special; Low Fat, Low Chol, 2 GM Sodium Food Allergies: NKFA Pt intake is adequate. 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 Voiced concerns about ot finding foods he likes, pt set goals for diet change (reduce %fat of milk, try diet soda, limit processed meats/try leancuts of meats)) Goals: Patient/caregiver able to teach back understanding of role of diet in disease process prior to discharge, Adequate nutrition to meet estimated needs by next assessment Nutrition Related ADL & IDL Ability to Prepare Meals: Yes Ability to Self-Feed: Yes Diet History Diet Experience Previously prescribed diets: denies Previous Diet / Nutrition Education / Counseling: denies Self-selected diet(s) followed: regular Food Allergies: NKFA Previously prescribed diets: denies Previous Diet / Nutrition Education / Counseling: denies Self-selected diet(s) followed: regular Food Intake Breakfast: pt reports he has one meal/day. 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 Energy Needs (RD entered): 2200 kcal(adjusted for weight loss) ?? MSJ Total Energy Needs: 2731.2 kcal using Activity Factor: 1.2 and Weight Used for Equation Calculations (RD Determined): 127.1 kg (280 lb 3.3 oz)(standing scale 04/28/19) ?? Total Protein Estimated Needs (gm): 101.68 Protein Needs Based on g/k.8 Type of Weight Used for Estimated Protein : Current. ?? Fluid Needs Based on : (2000 mL, CHF). Nutrition Providing: ??? Nutrition Providing/Calorie Count ??? Weight: 127.1 kg (280 lb 3.3 oz) ??? PO Calories: (po intakes 75% of meals since admit 04/26/19) Objective Anthropometrics Weight: 127.1 kg (280 lb 3.3 oz) Admission Weight : 128 kg Weight Change: -1.44 kg (-3.19 lbs) Usual Body Weight: 127 kg (280 lb) IBW/kg (Calculated) : 86.2 kg Weight Changes/History: (pt reports weight has been stable for the past 5 years) Height: 188 cm (6' 2.02 ) Weight in (lb) to have BMI = 25: 194.4 BMI (Calculated): 36 BMI Classification: BMI 35.0 - 39.9 Obese Class II 3 Day I/O Summary 04/26 1900 - 04/28 0659 In: 4085 [P.O.:2650; I.V.:1435] Out: 3200 [Urine:3200] Temp: 36.6 ??C (97.9 ??F) No past medical history on file. Medications and Lab Review: Patient???s Active Medications have been reviewed. Nutrition Related Labs have been reviewed. Diet Instructions Heart Healthy diet-see attached papers .Anu Shabazz MSRDN, LD, [facility] [phone] Jasmina Mckeon, MS RDN LD Cosigned by Rekha Julien RD at 04/29/2019 12:53 PM CDT * Danna Little LCSW - 04/27/2019 4:07 PM CDT Consult received to assist as patient is from [id number] and has no insurance. HCFS met with patient and provided hospital assistance application. SW met with the patient to discuss consult. Patient state no needs from social work at this time and is hopeful to discharge home tomorrow. Family at bedside. The patient lives in [place], [place]. Social Work will remain available and assist further if needed. Danna Little LCSW 04/27/19 4:12 PM * Anu Shabazz RD - 04/27/2019 1:22 PM CDT Nutrition Note Reason for Assessment: Consult/Referral: CAD diet ed Encounter Date: 04/27/19 1:22 PM Nutrition Assessment and Plan: Patient is a 34 y.o. male. Admit Dx: CP. Admitted on 04/26/2019, current LOS is 1 days. Nursing Admission Screen: Nutrition Screen What diet do you follow at home?: regular Have You Recently Lost Weight Without Trying?: No Poor Oral Intake for Four or More Days Prior to Admission: No Current diet order: Adult Diet Special; Low Fat, Low Chol, 2 GM Sodium Monitoring and Evaluation: Other (comment)(Received consult for CAD diet ed; pt states primary goalis to quit smoking but accepted literature for his sister, whom he lives with) Nutrition Related ADL & IDL Ability to Prepare Meals: Other (Comment)(Pt or sister prepare meals) Ability to Self-Feed: Yes Diet History Eating Environment Eats Alone: Lives sister and often eats with her Objective Anthropometrics Weight: 128.5 kg (283 lb 6.4 oz) Admission Weight : 128 kg Weight Change: 0.54 kg (1.21 lbs) IBW/kg (Calculated) : 86.2 kg Height: 188 cm (6' 2 ) Weight in (lb) to have BMI = 25: 194.3 BMI (Calculated): 36.4 3 Day I/O Summary 04/25 1900 - 04/27 0659 In: 1935 [I.V.:1935] Out: 400 [Urine:400] Temp: 36.5 ??C (97.7 ??F) No past medical history on file. Nursing Assessment: Guillaume Scale Score: 22 Skin Integrity: Puncture Diet Instructions Heart Healthy diet-see attached papers .TOI Muller, CNSC [phone] TOI Muller, CNSC * Jason Faustin MD - 04/27/2019 6:44 AM CDT Progress Note Patient Name: Jose Guardado Date of : 1985 Primary Physician: Ayden Unknown Admission Date: 04/26/2019 Date of Progress Note: 04/27/2019 Subjective Jose Guardado is a 34 y.o. male seen on rounds this morning. He had no acute events overnight, and denies chest pain or shortness of breath at this time. Patient has not had any nausea, vomiting.He did not sleep well. He had absolutely no chest pain overnight. He did have some ventricular ectopy. Nothing that cause any symptoms. He has been hemodynamically stable. His troponin did jump up to2 which is not unexpected given the fact that he had a proximal 100% LAD occlusion. Objective Scheduled Meds: aspirin 81 mg oral Daily atorvastatin 80 mg oral Nightly carvedilol 6.25 mg oral BID enoxaparin 40 mg subcutaneous Daily-2100 losartan 50 mg oral Daily nicotine 1 patch transdermal Daily pantoprazole DR 40 mg oral Before breakfast ticagrelor 90 mg oral BID PRN Meds: ??? acetaminophen ??? atropine ??? diphenhydrAMINE ??? famotidine ??? fentaNYL ??? hydrALAZINE ??? midazolam ??? ondansetron ??? phenylephrine Mechanical DVT Prevention ] Intake/Output Summary (Last 24 hours) at 04/27/2019 0644 Last data filed at 04/27/2019 0205 Gross per 24 hour Intake 1935 ml Output 400 ml Net 1535 ml BP 134/81 (BP Location: Left arm, Patient Position: Lying) Pulse 63 Temp 36.8 ??C (98.3 ??F) (Oral) Resp 22 Ht 188 cm (6' 2 ) Wt 128 kg (282 lb 3 oz) SpO2 96% BMI 36.23 kg/m?? Physical Exam Constitutional: He is oriented to person, place, and time. He appears well- developed and well-nourished. No distress. HENT: Head: Normocephalic and atraumatic. Eyes: EOM are normal. Neck: Normal range of motion. Neck supple. Cardiovascular: Normal rate and regular rhythm. Exam reveals no gallop and no friction rub. No murmur heard. Pulmonary/Chest: Effort normal and breath sounds normal. No respiratory distress. He has no rales. Abdominal: Soft. Bowel sounds are normal. He exhibits no distension. There is no tenderness. There is no guarding. Musculoskeletal: He exhibits no edema. Neurological: He is alert and oriented to person, place, and time. Skin: No rash noted. Psychiatric: He has a normal mood and affect. Diagnostics Recent Results (from the past 24 hour(s)) CBC with auto differential Collection Time: 04/26/19 3:04 PM Result Value Ref Range WBC 6.0 3.8 - 9.9 K/cumm Hgb 15.4 13.0 - 17.5 g/dL Hct 44.1 38.9 - 50.3 % Plt 174 150 - 400 K/cumm MPV 11.1 9.1 - 12.3 fL RBC 4.78 4.30 - 5.80 M/cumm MCV 92.3 81.3 - 96.4 fL MCH 32.2 27.1 - 33.3 pg MCHC 34.9 32.3 - 35.7 g/dL RDW CV 12.2 11.1 - 14.9 % RDW SD 41.3 35.7 - 48.1 fL NRBC Abs 0.00 0.00 - 0.01 K/cumm Comprehensive metabolic panel Collection Time: 04/26/19 3:04 PM Result Value Ref Range Sodium 138 135 - 145 mmol/L Potassium, pl 3.9 3.3 - 4.9 mmol/L Chloride 100 97 - 110 mmol/L CO2 22 22 - 32 mmol/L Anion Gap 16 (H) 2 - 15 mmol/L BUN 13 8 - 25 mg/dL Creatinine 1.23 0.80 - 1.30 mg/dL Glucose 131 70 - 199 mg/dL Calcium 9.8 8.5 - 10.3 mg/dL Bilirubin, total 0.6 0.1 - 1.2 mg/dL Protein, pl 8.0 6.5 - 8.5 g/dL Albumin 4.7 3.5 - 5.0 g/dL Alk phos 65 40 - 130 Units/L ALT 34 7 - 55 Units/L AST 32 10 - 50 Units/L Troponin T Collection Time: 04/26/19 3:04 PM Result Value Ref Range Troponin T <0.01 0.00 - 0.01 ng/mL Differential, auto Collection Time: 04/26/19 3:04 PM Result Value Ref Range Neutrophil absolute 3.2 1.7 - 6.5 K/cumm Immature granulocyte absolute 0.0 0.0 - 0.1 K/cumm Lymphocytes absolute 2.0 0.8 - 3.3 K/cumm Monocyte absolute 0.5 0.2 - 0.8 K/cumm Eosinophils absolute 0.1 0.0 - 0.5 K/cumm Basophils, abs 0.0 0.0 - 0.1 K/cumm Neutrophils 53.9 % Immature granulocytes 0.7 % Lymphocytes 33.9 % Monocytes 8.5 % Eosinophils 2.2 % Basophils 0.8 % eGFR Collection Time: 04/26/19 3:04 PM Result Value Ref Range GFR 76 mL/min/1.73 m2 ECG 12 lead Collection Time: 04/26/19 3:04 PM Result Value Ref Range Systolic Blood Pressure 144 mmHg Diastolic Blood Pressure 96 mmHg Ventricular Rate EKG/Min 86 BPM Atrial Rate 86 BPM NH-Interval (MSEC) 162 ms QRS-Interval (MSEC) 100 ms QT-Interval (MSEC) 388 ms QTc 464 ms P Stan[place] 45 degrees R Stanfield -19 degrees T Stanfield 14 degrees Diagnosis Normal sinus rhythm with sinus arrhythmia Incomplete right bundle branch block Septal infarct , age undetermined Abnormal ECG No previous ECGs available Confirmed by Gwyn MENDEZ DAN L. ([id number]) on 04/26/2019 4:02:17 PM ECG 12 lead Collection Time: 04/26/19 3:07 PM Result Value Ref Range Systolic Blood Pressure 144 mmHg Diastolic Blood Pressure 96 mmHg Ventricular Rate EKG/Min 75 BPM Atrial Rate 75 BPM NH-Interval (MSEC) 162 ms QRS-Interval (MSEC) 102 ms QT-Interval (MSEC) 390 ms QTc 435 ms P [place] 52 degrees R Stanfield -20 degrees T [place] 11 degrees Diagnosis Normal sinus rhythm with sinus arrhythmia Incomplete right bundle branch block Borderline ECG When compared with ECG of 26-APR-2019 15:04, No significant change was found Confirmed by Gwyn MENDEZ DAN L. ([id number]) on 04/26/2019 4:02:09 PM POCT creatinine Collection Time: 04/26/19 3:13 PM Result Value Ref Range Creatinine POC 1.2 0.4 - 1.2 mg/dL CBC with auto differential Collection Time: 04/26/19 3:38 PM Result Value Ref Range WBC 7.3 3.8 - 9.9 K/cumm Hgb 14.4 13.0 - 17.5 g/dL Hct 40.7 38.9 - 50.3 % Plt 150 150 - 400 K/cumm MPV 11.1 9.1 - 12.3 fL RBC 4.46 4.30 - 5.80 M/cumm MCV 91.3 81.3 - 96.4 fL MCH 32.3 27.1 - 33.3 pg MCHC 35.4 32.3 - 35.7 g/dL RDW CV 12.2 11.1 - 14.9 % RDW SD 40.6 35.7 - 48.1 fL NRBC Abs 0.00 0.00 - 0.01 K/cumm Differential, auto Collection Time: 04/26/19 3:38 PM Result Value Ref Range Neutrophil absolute 5.0 1.7 - 6.5 K/cumm Immature granulocyte absolute 0.0 0.0 - 0.1 K/cumm Lymphocytes absolute 1.5 0.8 - 3.3 K/cumm Monocyte absolute 0.7 0.2 - 0.8 K/cumm Eosinophils absolute 0.1 0.0 - 0.5 K/cumm Basophils, abs 0.0 0.0 - 0.1 K/cumm Neutrophils 68.3 % Immature granulocytes 0.3 % Lymphocytes 20.3 % Monocytes 9.0 % Eosinophils 1.4 % Basophils 0.7 % ECG 12 lead Collection Time: 04/26/19 4:38 PM Result Value Ref Range Ventricular Rate EKG/Min 79 BPM Atrial Rate 79 BPM NH-Interval (MSEC) 162 ms QRS-Interval (MSEC) 112 ms QT-Interval (MSEC) 382 ms QTc 438 ms P Stan[place] 3 degrees R Stanfield 47 degrees T [place]field 4 degrees Diagnosis Normal sinus rhythm Incomplete right bundle branch block Septal infarct , age undetermined Possible Inferior infarct , age undetermined Abnormal ECG When compared with ECG of 26-APR-2019 15:07, Borderline criteria for Inferior infarct are now Present ST no longer depressed in Inferior leads Nonspecific T wave abnormality now evident in Lateral leads Confirmed by Gwyn MENDEZ, SURINDER Brewer ([id number]) on 04/26/2019 5:56:20 PM Troponin T Collection Time: 04/26/19 7:23 PM Result Value Ref Range Troponin T 0.87 (H) 0.00 - 0.01 ng/mL Troponin T Collection Time: 04/27/19 4:58 AM Result Value Ref Range Troponin T 2.05 (H) 0.00 - 0.01 ng/mL Comprehensive metabolic panel Collection Time: 04/27/19 4:58 AM Result Value Ref Range Sodium 139 135 - 145 mmol/L Potassium, pl 4.2 3.3 - 4.9 mmol/L Chloride 103 97 - 110 mmol/L CO2 20 (L) 22 - 32 mmol/L Anion Gap 16 (H) 2 - 15 mmol/L BUN 12 8 - 25 mg/dL Creatinine 0.92 0.80 - 1.30 mg/dL Glucose 105 70 - 199 mg/dL Calcium 9.2 8.5 - 10.3 mg/dL Bilirubin, total 0.6 0.1 - 1.2 mg/dL Protein, pl 7.1 6.5 - 8.5 g/dL Albumin 4.2 3.5 - 5.0 g/dL Alk phos 59 40 - 130 Units/L ALT 35 7 - 55 Units/L AST 116 (H) 10 - 50 Units/L CBC with auto differential Collection Time: 04/27/19 4:58 AM Result Value Ref Range WBC 9.9 3.8 - 9.9 K/cumm Hgb 14.3 13.0 - 17.5 g/dL Hct 40.8 38.9 - 50.3 % Plt 168 150 - 400 K/cumm MPV 11.4 9.1 - 12.3 fL RBC 4.43 4.30 - 5.80 M/cumm MCV 92.1 81.3 - 96.4 fL MCH 32.3 27.1 - 33.3 pg MCHC 35.0 32.3 - 35.7 g/dL RDW CV 12.5 11.1 - 14.9 % RDW SD 42.1 35.7 - 48.1 fL NRBC Abs 0.00 0.00 - 0.01 K/cumm Magnesium Collection Time: 04/27/19 4:58 AM Result Value Ref Range Magnesium 2.0 1.6 - 2.6 mg/dL Differential, auto Collection Time: 04/27/19 4:58 AM Result Value Ref Range Neutrophil absolute 6.4 1.7 - 6.5 K/cumm Immature granulocyte absolute 0.0 0.0 - 0.1 K/cumm Lymphocytes absolute 2.3 0.8 - 3.3 K/cumm Monocyte absolute 0.9 (H) 0.2 - 0.8 K/cumm Eosinophils absolute 0.2 0.0 - 0.5 K/cumm Basophils, abs 0.1 0.0 - 0.1 K/cumm Neutrophils 64.9 % Immature granulocytes 0.4 % Lymphocytes 23.1 % Monocytes 9.5 % Eosinophils 1.5 % Basophils 0.6 % eGFR Collection Time: 04/27/19 4:58 AM Result Value Ref Range GFR >90 mL/min/1.73 m2 Problem List Active Problems: No Active Problems: There are no active problems currently on the Problem List. Please update the Problem List and refresh. Assessment/Plan 34-year-old white male who presents with an acute anterior STEMI. 04/26/2019. Peak troponin 2. ?? 1. SEVERE CAD. Anterior STEMI. Last [facility] on 04/26/2019. ? EKG. ??04/26/2019. ??Mild [address] elevations in the anterolateral leads. ??Normal sinus rhythm. ? LAD. 100% acute proximal occlusion. 3.5 mm Xience BERNADETTE post dilated to 4 mm. ? Circumflex. Dominant circulation. 30% plaquing ? LVEDP of 30 mmHg with no gradient across aortic valve ? Left ventriculargram demonstrates a ejection fraction of 35% with anterior apical hypokinesis to akinesis. 2. Tobacco abuse 3. NKDA 4. FHx:?Father had an LA at age 35 Recommendations: ?? echocardiogram today ?? Possible transfer to [address] [place] [address] plan discussed with the patient. Jason Faustin MD 04/27/2019 6:44 AM documented in this encounter H&P Notes * Jason Faustin MD - 04/26/2019 6:24 AM CDT H&P Note Patient Name: Jose Guardado Date of : 1985 Primary Physician: Ayden Unknown Admission Date: 04/26/2019 Chief Complaint Chief Complaint Patient presents with ??? Chest Pain HPI Jose Guardado is a 34 y.o. male here for evaluation of chest pain. The patient has never seen acardiologist before. He was in his usual state of health when he went to go driving his truck. 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 He had severe 7/10 chest pain. It radiated to his neck and jaw. He was very short of breath. He had nausea but no vomiting. He was diaphoretic. He had no bad orthopnea, PND or lower extremity edema. He had no bad palpitations, dizzy spells or syncope. He went to the emergency room. His initial EKG showed some ST elevations in the anterolateral leads. He did have some reciprocal ST changes in inferior leads. His EKG improved. He still continued to have 7/10 chest pain and he looked very ill. I talked to the patient about doing a heart catheterization. Patient agree. Sedation Plan ASA 3 - Severe systemic disease Mallampati class: II. Risks, benefits, and alternatives discussed with patient. Past Medical History No major medical problems Past Surgical History Hand fracture that required surgery Medications None Allergies No known drug allergies Family History Father had an LA at age 35 Social History Social History Socioeconomic History ??? Marital status: Spouse name: Not on file ??? Number of children: Not on file ??? Years of education: Not on file ??? Highest education level: Not on file Occupational History ??? Not on file Social Needs ??? Financial resource strain: Not on file ??? Food insecurity: Worry: Not on file Inability: Not on file ??? Transportation needs: Medical: Not on file Non-medical: Not on file Tobacco Use ??? Smoking status: Current Every Day Smoker Packs/day: 1.50 Years: 23.00 Pack years: 34.50 ??? Tobacco comment: refused Substance and Sexual Activity ??? Alcohol use: Not Currently ??? Drug use: Never ??? Sexual activity: Defer Lifestyle ??? Physical activity: Days per week: Not on file Minutes per session: Not on file ??? Stress: Not on file Relationships ??? Social connections: Talks on phone: Not on file Gets together: Not on file Attends latter day service: Not on file Active member of club or organization: Not on file Attends meetings of clubs or organizations: Not on file Relationship status: Not on file ??? Intimate partner violence: Fear of current or ex partner: Not on file Emotionally abused: Not on file Physically abused: Not on file Forced sexual activity: Not on file Other Topics Concern ??? Not on file Social History Narrative ??? Not on file Review of Systems Review of Systems Constitutional: Positive for diaphoresis and fatigue. Negative for chills and fever. HENT: Negative for sinus pressure and sore throat. Eyes: Negative for visual disturbance. Respiratory: Positive for chest tightness and shortness of breath. Negative for cough and wheezing. Cardiovascular: Positive for chest pain. Negative for palpitations and leg swelling. Gastrointestinal: Positive for nausea. Negative for abdominal pain, blood in stool, diarrhea and vomiting. Genitourinary: Negative for hematuria. Skin: Negative for rash. Neurological: Negative for dizziness, seizures and syncope. Psychiatric/Behavioral: Negative for confusion. All other systems reviewed and are negative. Objective BP 134/81 (BP Location: Left arm, Patient Position: Lying) Pulse 63 Temp 36.8 ??C (98.3 ??F) (Oral) Resp 22 Ht 188 cm (6' 2 ) Wt 128 kg (282 lb 3 oz) SpO2 96% BMI 36.23 kg/m?? Condition: Alert, appears in no acute distress Physical Exam Physical Exam Constitutional: He is oriented to person, place, and time. He appears well- developed and well-nourished. No distress. HENT: Head: Normocephalic and atraumatic. Eyes: EOM are normal. Neck: Normal range of motion. Neck supple. Cardiovascular: Normal rate and regular rhythm. Pulmonary/Chest: Effort normal and breath sounds normal. No respiratory distress. He has no rales. Abdominal: Soft. Bowel sounds are normal. He exhibits no distension. There is no tenderness. There is no guarding. Musculoskeletal: He exhibits no edema. Neurological: He is alert and oriented to person, place, and time. Skin: Skin is warm and dry. No rash noted. Psychiatric: He has a normal mood and affect. Diagnostics Recent Results (from the past 24 hour(s)) CBC with auto differential Collection Time: 04/26/19 3:04 PM Result Value Ref Range WBC 6.0 3.8 - 9.9 K/cumm Hgb 15.4 13.0 - 17.5 g/dL Hct 44.1 38.9 - 50.3 % Plt 174 150 - 400 K/cumm MPV 11.1 9.1 - 12.3 fL RBC 4.78 4.30 - 5.80 M/cumm MCV 92.3 81.3 - 96.4 fL MCH 32.2 27.1 - 33.3 pg MCHC 34.9 32.3 - 35.7 g/dL RDW CV 12.2 11.1 - 14.9 % RDW SD 41.3 35.7 - 48.1 fL NRBC Abs 0.00 0.00 - 0.01 K/cumm Comprehensive metabolic panel Collection Time: 04/26/19 3:04 PM Result Value Ref Range Sodium 138 135 - 145 mmol/L Potassium, pl 3.9 3.3 - 4.9 mmol/L Chloride 100 97 - 110 mmol/L CO2 22 22 - 32 mmol/L Anion Gap 16 (H) 2 - 15 mmol/L BUN 13 8 - 25 mg/dL Creatinine 1.23 0.80 - 1.30 mg/dL Glucose 131 70 - 199 mg/dL Calcium 9.8 8.5 - 10.3 mg/dL Bilirubin, total 0.6 0.1 - 1.2 mg/dL Protein, pl 8.0 6.5 - 8.5 g/dL Albumin 4.7 3.5 - 5.0 g/dL Alk phos 65 40 - 130 Units/L ALT 34 7 - 55 Units/L AST 32 10 - 50 Units/L Troponin T Collection Time: 04/26/19 3:04 PM Result Value Ref Range Troponin T <0.01 0.00 - 0.01 ng/mL Differential, auto Collection Time: 04/26/19 3:04 PM Result Value Ref Range Neutrophil absolute 3.2 1.7 - 6.5 K/cumm Immature granulocyte absolute 0.0 0.0 - 0.1 K/cumm Lymphocytes absolute 2.0 0.8 - 3.3 K/cumm Monocyte absolute 0.5 0.2 - 0.8 K/cumm Eosinophils absolute 0.1 0.0 - 0.5 K/cumm Basophils, abs 0.0 0.0 - 0.1 K/cumm Neutrophils 53.9 % Immature granulocytes 0.7 % Lymphocytes 33.9 % Monocytes 8.5 % Eosinophils 2.2 % Basophils 0.8 % eGFR Collection Time: 04/26/19 3:04 PM Result Value Ref Range GFR 76 mL/min/1.73 m2 ECG 12 lead Collection Time: 04/26/19 3:04 PM Result Value Ref Range Systolic Blood Pressure 144 mmHg Diastolic Blood Pressure 96 mmHg Ventricular Rate EKG/Min 86 BPM Atrial Rate 86 BPM NH-Interval (MSEC) 162 ms QRS-Interval (MSEC) 100 ms QT-Interval (MSEC) 388 ms QTc 464 ms P Stanfield 45 degrees R Stanfield -19 degrees T Stanfield 14 degrees Diagnosis Normal sinus rhythm with sinus arrhythmia Incomplete right bundle branch block Septal infarct , age undetermined Abnormal ECG No previous ECGs available Confirmed by Gwyn MENDEZ DAN L. ([id number]) on 04/26/2019 4:02:17 PM ECG 12 lead Collection Time: 04/26/19 3:07 PM Result Value Ref Range Systolic Blood Pressure 144 mmHg Diastolic Blood Pressure 96 mmHg Ventricular Rate EKG/Min 75 BPM Atrial Rate 75 BPM NH-Interval (MSEC) 162 ms QRS-Interval (MSEC) 102 ms QT-Interval (MSEC) 390 ms QTc 435 ms P [place] 52 degrees R Stanfield -20 degrees T Stan[place] 11 degrees Diagnosis Normal sinus rhythm with sinus arrhythmia Incomplete right bundle branch block Borderline ECG When compared with ECG of 26-APR-2019 15:04, No significant change was found Confirmed by Gwyn MENDEZ DAN L. ([id number]) on 04/26/2019 4:02:09 PM POCT creatinine Collection Time: 04/26/19 3:13 PM Result Value Ref Range Creatinine POC 1.2 0.4 - 1.2 mg/dL CBC with auto differential Collection Time: 04/26/19 3:38 PM Result Value Ref Range WBC 7.3 3.8 - 9.9 K/cumm Hgb 14.4 13.0 - 17.5 g/dL Hct 40.7 38.9 - 50.3 % Plt 150 150 - 400 K/cumm MPV 11.1 9.1 - 12.3 fL RBC 4.46 4.30 - 5.80 M/cumm MCV 91.3 81.3 - 96.4 fL MCH 32.3 27.1 - 33.3 pg MCHC 35.4 32.3 - 35.7 g/dL RDW CV 12.2 11.1 - 14.9 % RDW SD 40.6 35.7 - 48.1 fL NRBC Abs 0.00 0.00 - 0.01 K/cumm Differential, auto Collection Time: 04/26/19 3:38 PM Result Value Ref Range Neutrophil absolute 5.0 1.7 - 6.5 K/cumm Immature granulocyte absolute 0.0 0.0 - 0.1 K/cumm Lymphocytes absolute 1.5 0.8 - 3.3 K/cumm Monocyte absolute 0.7 0.2 - 0.8 K/cumm Eosinophils absolute 0.1 0.0 - 0.5 K/cumm Basophils, abs 0.0 0.0 - 0.1 K/cumm Neutrophils 68.3 % Immature granulocytes 0.3 % Lymphocytes 20.3 % Monocytes 9.0 % Eosinophils 1.4 % Basophils 0.7 % ECG 12 lead Collection Time: 04/26/19 4:38 PM Result Value Ref Range Ventricular Rate EKG/Min 79 BPM Atrial Rate 79 BPM NH-Interval (MSEC) 162 ms QRS-Interval (MSEC) 112 ms QT-Interval (MSEC) 382 ms QTc 438 ms P Stanfield 3 degrees R Stanfield 47 degrees T Stanfield 4 degrees Diagnosis Normal sinus rhythm Incomplete right bundle branch block Septal infarct , age undetermined Possible Inferior infarct , age undetermined Abnormal ECG When compared with ECG of 26-APR-2019 15:07, Borderline criteria for Inferior infarct are now Present ST no longer depressed in Inferior leads Nonspecific T wave abnormality now evident in Lateral leads Confirmed by Gwyn MENDEZ, SURINDER Brewer ([id number]) on 04/26/2019 5:56:20 PM Troponin T Collection Time: 04/26/19 7:23 PM Result Value Ref Range Troponin T 0.87 (H) 0.00 - 0.01 ng/mL Troponin T Collection Time: 04/27/19 4:58 AM Result Value Ref Range Troponin T 2.05 (H) 0.00 - 0.01 ng/mL Comprehensive metabolic panel Collection Time: 04/27/19 4:58 AM Result Value Ref Range Sodium 139 135 - 145 mmol/L Potassium, pl 4.2 3.3 - 4.9 mmol/L Chloride 103 97 - 110 mmol/L CO2 20 (L) 22 - 32 mmol/L Anion Gap 16 (H) 2 - 15 mmol/L BUN 12 8 - 25 mg/dL Creatinine 0.92 0.80 - 1.30 mg/dL Glucose 105 70 - 199 mg/dL Calcium 9.2 8.5 - 10.3 mg/dL Bilirubin, total 0.6 0.1 - 1.2 mg/dL Protein, pl 7.1 6.5 - 8.5 g/dL Albumin 4.2 3.5 - 5.0 g/dL Alk phos 59 40 - 130 Units/L ALT 35 7 - 55 Units/L AST 116 (H) 10 - 50 Units/L CBC with auto differential Collection Time: 04/27/19 4:58 AM Result Value Ref Range WBC 9.9 3.8 - 9.9 K/cumm Hgb 14.3 13.0 - 17.5 g/dL Hct 40.8 38.9 - 50.3 % Plt 168 150 - 400 K/cumm MPV 11.4 9.1 - 12.3 fL RBC 4.43 4.30 - 5.80 M/cumm MCV 92.1 81.3 - 96.4 fL MCH 32.3 27.1 - 33.3 pg MCHC 35.0 32.3 - 35.7 g/dL RDW CV 12.5 11.1 - 14.9 % RDW SD 42.1 35.7 - 48.1 fL NRBC Abs 0.00 0.00 - 0.01 K/cumm Magnesium Collection Time: 04/27/19 4:58 AM Result Value Ref Range Magnesium 2.0 1.6 - 2.6 mg/dL Differential, auto Collection Time: 04/27/19 4:58 AM Result Value Ref Range Neutrophil absolute 6.4 1.7 - 6.5 K/cumm Immature granulocyte absolute 0.0 0.0 - 0.1 K/cumm Lymphocytes absolute 2.3 0.8 - 3.3 K/cumm Monocyte absolute 0.9 (H) 0.2 - 0.8 K/cumm Eosinophils absolute 0.2 0.0 - 0.5 K/cumm Basophils, abs 0.1 0.0 - 0.1 K/cumm Neutrophils 64.9 % Immature granulocytes 0.4 % Lymphocytes 23.1 % Monocytes 9.5 % Eosinophils 1.5 % Basophils 0.6 % eGFR Collection Time: 04/27/19 4:58 AM Result Value Ref Range GFR >90 mL/min/1.73 m2 DIAGNOSTIC IMAGING: Xr Chest 1 Vw Portable Result Date: 04/26/2019 No acute pathology The above report was dictated at [facility] Assessment/Plan 34 y.o. male seen for anterolateral ST elevation LA. 1. Anterior STEMI. ?? EKG. 04/26/2019. Mild [address] elevations in the anterolateral leads. Normal sinus rhythm. 2. Tobacco abuse 3. NKDA 4. FHx: Father had an LA at age 35 PLAN: Emergency left heart catheterization. Care plan discussed with the patient. Jason Faustin MD 04/27/2019 6:24 AM documented in this encounter ED Notes * Rosa Elena Goode MD - 04/26/2019 3:14 PM CDT EMERGENCY PHYSICIAN NOTE VISIT DATE: 04/26/19 TRIAGE TIME: 1501 ROOM: [facility] ED03/ED03 NAME: Jose Guardado AGE: 34 y.o. GENDER: male : 1985 PCP: No primary care provider on file. CHIEF COMPLAINT: Chief Complaint Patient presents with ??? Chest Pain HPI 34-year-old male presents here today 45 minutes after onset of severe sharp precordial pain and ache radiating into both shoulders and down both arms. The patient felt very weak and lightheaded and generally felt very very bad. Coworkers were notified and then an ambulance picked him up. Initial pre- hospital EKG was concerning for a STEMI though it was in clearly convincing especially since the patient had repeat EKGs that then looked better. He received aspirin and nitroglycerin on the way here. Currently he is reporting improvement in his symptoms but he still having precordial chest pain. No shortness of breath. A little bit lightheadedness. He is a heavy smoker I have personally reviewed the Nursing Chart Past Medical History No past medical history on file. Past Surgical History No past surgical history on file. Social History Social History Socioeconomic History ??? Marital status: Spouse name: Not on file ??? Number of children: Not on file ??? Years of education: Not on file ??? Highest education level: Not on file Occupational History ??? Not on file Social Needs ??? Financial resource strain: Not on file ??? Food insecurity: Worry: Not on file Inability: Not on file ??? Transportation needs: Medical: Not on file Non-medical: Not on file Tobacco Use ??? Smoking status: Not on file Substance and Sexual Activity ??? Alcohol use: Not on file ??? Drug use: Not on file ??? Sexual activity: Not on file Lifestyle ??? Physical activity: Days per week: Not on file Minutes per session: Not on file ??? Stress: Not on file Relationships ??? Social connections: Talks on phone: Not on file Gets together: Not on file Attends latter day service: Not on file Active member of club or organization: Not on file Attends meetings of clubs or organizations: Not on file Relationship status: Not on file ??? Intimate partner violence: Fear of current or ex partner: Not on file Emotionally abused: Not on file Physically abused: Not on file Forced sexual activity: Not on file Other Topics Concern ??? Not on file Social History Narrative ??? Not on file Family History Biological father had a heart attack at the age of 35 Review of Systems Review of Systems Unable to perform ROS: Acuity of condition . Postives and pertinent negatives as per HPI. Home Medications: Prior to Admission medications Not on File Triage Vitals ED Triage Vitals [04/26/19 1507] Temp Pulse Resp BP SpO2 36.9 ??C (98.5 ??F) 93 18 144/56 96 % Temp src Heart Rate Source Patient Position BP Location FiO2 (%) Temporal -- -- -- -- BP: 154/99 Pulse: 86 Resp: 18 SpO2: 95 % Temp: 36.9 ??C (98.5 ??F) Temp (24hrs), Av.9??C (98.5 ??F), Min:36.9 ??C (98.5 ??F), Max:36.9 ??C (98.5 ??F) Temp src: Temporal Height: 188 cm (6' 2 ) Weight: 127 kg (280 lb) [place] body weight: 82.2 kg (181 lb 3.5 oz) Adjusted ideal body weight: 100.1 kg (220 lb 11.7 oz) Physical Exam GENERAL APPEARANCE: Awake, alert and oriented. Cooperative. Moderate distress. HEAD: Normocephalic. Atraumatic. EYES: EOM's grossly intact. Pupils reactive and brisk. ENT: Tolerates saliva. No trismus. Moist mucosa. NECK: Supple. Trachea midline. No meningismus. No thyromegaly. HEART: RRR. Radial pulse 2+. LUNGS: Respirations unlabored. CTAB. ABDOMEN: Soft. Non-tender. No guarding or rebound. No palpable mass. BACK: No CVA tenderness, no deformities. EXTREMITIES: No acute deformities. No peripheral edema. SKIN: Warm and diaphoretic. NEUROLOGICAL: Alert and appropriate. Interactive. No gross facial drooping. Moves all 4 extremitiesspontaneously. PSYCHIATRIC: Normal mood. Not anxious. Normal affect. Laboratory Results Labs Reviewed CBC WITH AUTO DIFFERENTIAL Result Value WBC 6.0 Hgb 15.4 Hct 44.1 Plt 174 MPV 11.1 RBC 4.78 MCV 92.3 MCH 32.2 MCHC 34.9 RDW CV 12.2 RDW SD 41.3 NRBC Abs 0.00 DIFFERENTIAL AUTO Neutrophil absolute 3.2 Immature granulocyte absolute 0.0 Lymphocytes absolute 2.0 Monocyte absolute 0.5 Eosinophils absolute 0.1 Basophils, abs 0.0 Neutrophils 53.9 Immature granulocytes 0.7 Lymphocytes 33.9 Monocytes 8.5 Eosinophils 2.2 Basophils 0.8 COMPREHENSIVE METABOLIC PANEL TROPONIN T POCT CREATININE - DEVICE Imaging XR Chest 1 Vw Portable (Results Pending) Cardiac Catheterization (Results Pending) Procedures Sequential Vitals: Patient Vitals for the past 24 hrs: BP Temp Temp src Pulse Resp SpO2 Height Weight 04/26/19 1512 154/99 -- -- 86 18 95 % -- -- 04/26/19 1507 144/56 36.9 ??C (98.5 ??F) Temporal 93 18 96 % 188 cm (6' 2 ) 127 kg (280 lb) Course of Care: ED Course as of Apr 26 1521 Time: 04/26 1514 Comment: Dr Faustin at the bedside. labor trainer preparing. By: Rosa Elena Goode MD Time: 04/26 1516 Comment: ECG (Interpreted by nv, CPT 91913): Normal sinus rhythm with a heart rate of 86. Left axisdeviation. ST segment depression in the inferior leads with subtle elevation in the precordial leads in the setting of an incomplete right bundle branch block. This not diagnostic for STEMI. No priorEKG for comparison. ECG (Interpreted by nv, CPT 55099): Repeat EKG of 1507 S similar with truly no elevations of the J-point in the precordial leads. Review of pre-hospital EKGs especially the 1 performed at 2:[address] segment elevationsin the precordial leads V2 and V3 with ST segment depressions in V5 V6 and the inferior leads much much more convincing of acute ischemia. By: Rosa Elena Goode MD Time: 04/26 1518 Comment: Dr. Faustin and I reviewed EKG and considering the patient's acute presentation he actually does look like he is having an acute coronary syndrome so he is going to the rn labor delivery now By: Rosa Elena Goode MD Medications Given in ED: Medications nitroglycerin in dextrose 5% 50 mg/250 mL (200 mcg/mL) infusion (premix) (10 mcg/min intravenous New Bag 04/26/19 1513) sodium chloride 0.9% infusion (has no administration in time range) CLINICAL IMPRESSION Final diagnoses: ACS (acute coronary syndrome) ([facility]) DISPOSITION To Vice President Of Instruction. Critical Care Performed by: ROSA ELENA GOODE Critical care time (minutes): 25 Critical care was necessary to treat or prevent imminent or life-threatening deterioration. Critical care was time spent personally by me on the following activities: Ordering and review of laboratory studies, ordering and performing treatments and interventions, ordering and review of radiographicstudies, re- evaluation of patient's condition, review of old charts, examination of patient and discussions with consultants and family members. This was in addition to any separately billable procedures. Prince Gilbert MD MPH [facility] Emergency Department (Note that portions of this note may have been completed with voice recognition software. 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 No heart hx. No home meds. * Yesi Zaidi RN - 04/26/2019 3:01 PM CDT Bed: ED03 Expected date: 04/26/19 Expected time: 3:06 PM Means of arrival: Comments: [facility] Yesi Zaidi, RACQUEL 04/26/19 1501 documented in this encounter Miscellaneous Notes * Plan of Care - Kathie Vega RN - 04/28/2019 6:30 AM CDT Goals: Clinical Goals for the Shift: VSS, SW consult, increase activity Summary: VSS. * Plan of Care - Radha Julien RN - 04/27/2019 6:18 PM CDT Goals: Clinical Goals for the Shift: VSS, SW consult, increase activity Summary: Pt s/p stent to LAD yesterday. Doing well. Started on losartan and Coreg. VS tolerating. No Cp. Educated extensively on importance of medication compliance, particularly with Brillinta. Tx to S405 * Plan of Care - Kitty Esparza RN - 04/27/2019 1:55 AM CDT Goals: Clinical Goals for the Shift: VSS; Medication education; Pain Summary: Pt aware of fall and safety precautions. documented in this encounter Plan of Treatment Pending Results Name Type Priority Associated Diagnoses Date /Time POCT activated clotting time Point of Care Testing-Docked Device Routine 04/26/2019 4:07 PM CDT documented as of this encounter Procedures Procedure Name Priority Date/Time Associated Diagnosis Comments MAGNESIUM Routine 04/28/2019 4:10 AM CDT TRANSTHORACIC ECHO (TTE) COMPLETE W DOPPLER/CF WO CONTRAST Routine 04/27/2019 4:22 PM CDT ECG 12-LEAD Routine 04/27/2019 6:50 AM CDT ACS (acute coronary syndrome) (CMS/HCC) EGFR Nurse Collect 04/27/2019 4:58 AM CDT DIFFERENTIAL AUTO Nurse Collect 04/27/2019 4:5 8 AM CDT CBC WITH AUTO DIFFERENTIAL Routine 04/27/2019 4:58 AM CDT TROPONIN T Routine 04/27/2019 4:58 AM CDT TSH Routine 04/27/2019 4:58 AM CDT T4, FREE Routine 04/27/2019 4:58 AM CDT MAGNESIUM Routine 04/27/2019 4:58 AM CDT LIPID PANEL Routine 04/27/2019 4:58 AM CDT COMPREHENSIVE METABOLIC PANEL Routine 04/27/2019 4:58 AM CDT TROPONIN T STAT 04/26/2019 7:23 PM CDT ECG 12-LEAD Routine 04/26/2019 4:38 PM CDT ACS (acute coronary syndrome) (CMS/HCC) POCT ACTIVATED CLOTTING TIME - DEVICE Routine 04/26/2019 4:07 PM CDT LEFT HEART CATHETERIZATION WITH CORONARY ANGIOGRAPHY AND WITH AND WITHOUT LEFT VENTRICULOGRAM Routine 04/26/2019 3:58 PM CDT DIFFERENTIAL AUTO Routine 04/26/2019 3:3 8 PM CDT CBC WITH AUTO DIFFERENTIAL Routine 04/26/2019 3:38 PM CDT XR CHEST 1 VIEW ED 04/26/2019 3:20 PM CDT POCT CREATININE - DEVICE Routine 04/26/2019 3:13 PM CDT ECG 12-LEAD STAT 04/26/2019 3:07 PM CDT ECG 12-LEAD STAT 04/26/2019 3:04 PM CDT EGFR STAT 04/26/2019 3:04 PM CDT DIFFERENTIAL AUTO STAT 04/26/2019 3:0 4 PM CDT CBC WITH AUTO DIFFERENTIAL STAT 04/26/2019 3:04 PM CDT TROPONIN T STAT 04/26/2019 3:04 PM CDT COMPREHENSIVE METABOLIC PANEL STAT 04/26/2019 3:04 PM CDT documented in this encounter Results * Magnesium (04/28/2019 4:10 AM CDT) Magnesium 2.1 1.6 - 2.6 mg/dL [facility] Blood specimen (specimen) 04/28/2019 4:10 AM CDT 04/28/2019 4:25 AM CDT Jason Faustin MD LAB BLOOD ORDERABLES Ayse emerson Result [facility] ([place]) [address] [place] [address] of [place], [place] [id number] * TRANSTHORACIC ECHO (TTE) COMPLETE W DOPPLER/CF WO CONTRAST (04/27/2019 4:22 PM CDT) Anatomical Region Laterality Modality Other 04/27/2019 3:26 PM CDT Narrative 04/28/2019 6:54 AM CDT ?[facility] ?[address] ?[place] [address] ?Echocardiology and Vascular Laboratory Name: ??JOSE GUARDADO ?Gender: M ?Referring Physician:UNKNOWN, UNKNOWN : 1985 ? Agricultural Commodities Grader: ?? Margaret Cartagena ?Ordering Physician:JASON FAUSTIN MD ? (ttran) Exam Date: 04/27/2019 15:26 ? MR #: ?[id number] ? cc:Physician Point of Origin:S2 ICU ? Procedure CPT: ICD Codes: Clinical Indications: Chest pain, ACS suspected Study Quality: ?Fair BP (mmHg): ?? 133 ??/ 79 MEASUREMENTS 2D ECHO LV Diastolic Diameter Base LX ? 4.9 cm ?3.0-5.7 ?LVPW Systolic Thickness ? 2 cm ? LV Systolic Diameter Base LX ?3.2 cm ?2.3-4.9 ?LVPW Percent Thickening ? 0.42 ? LA Systolic Diameter LX ? 3.6 cm ? Body Height ? 74 in ? Fractional Shortening BASE LX ? 0.36 ?0.18-0.42 ?Body Weight ? 283 lb ? LV Diastolic Volume MOD BP ?150 ml ? Body Surface Area ? 2.6 m? LV Systolic Volume MOD BP ? 64.8 ml ?LA Ao Ratio ? 0.97 ? IVS Diastolic Thickness ? 1.3 cm ?0.6-1.1 cm ? LA Volume ? 58.7 ml ? IVS Systolic Thickness ?1.7 cm ? LA Volume Index ? 22.3 ml/m? IVS Percent Thickening ?0.24 ? Aortic Root Diameter ?3.7 cm ?2.0-3.7 cm LVPW Diastolic Thickness ?1.4 cm ?0.6-1.1 cm ? RV Diameter ? 3.5 cm ?<4.2cm ?? DOPPLER AV Peak Velocity ?125 cm/s ? AV Area Cont Eq vti ? 3.5 cm? AV Mean Velocity ?91.1 cm/s ?AV Area Cont Eq pk ?3.3 cm? AV Peak Gradient ?6.3 mmHg ? Mitral E Point Velocity ? 88.8 cm/s ? AV Mean Gradient ?4 mmHg ? MV Peak Velocity ?83.2 cm/s ? AV Velocity Time Integral ? 25.6 cm ?MV Peak Gradient ?2.8 mmHg ? AV Stroke Volume ?106 cm?MV Mean Velocity ?42.9 cm/s ? Heart Rate ?63 bpm ? MV Mean Gradient ?1 mmHg ? Cardiac Output ?6.7 liters/min ? MV Velocity Time Integral ?29.9 cm ? LVOT Peak Velocity ?98.3 cm/s ?PV Peak Velocity ?78.2 cm/s ? LVOT Mean Velocity ?70.9 cm/s ?PV Peak Gradient ?2.4 mmHg ? LVOT Peak Gradient ?3.9 mmHg ? PV Velocity Time Integral ? 21.6 cm ? LVOT Mean Gradient ?2 mmHg ? PV Mean Velocity ?59.1 cm/s ? LVOT Velocity Time Integral ? 21.4 cm ?PV Mean Gradient ?1.5 mmHg ? LVOT Diameter ? 2.3 cm ? Mitral E to LV E' Lateral Ratio ?? 8.1 ? LVOT Area ? 4.2 cm?Mitral E to LV E' Septal Ratio ?9.2 ? LVOT AV Darwin Ratio ? 0.79 ? Mitral E to LV E' Average ? 8.7 ? Contrast Used: ??None Left Ventricle: Mild concentric left ventricular hypertrophy. Normal left ventricular size and systolic function without ?regional wall motion abnormalities. Measured biplane LVEF is ??57%. Normal LV diastolic function. Left Atrium: ?Normal left atrial size per volume index criteria 22ml/m??. Right Ventricle:Normal right ventricular size and function. Right Atrium: ?? Normal right atrial size. Mitral Valve: ?? Normal mitral valve leaflets. No evidence of mitral stenosis. Minimal mitral regurgitation. Aortic Valve: ?? Mildly thickened trileaflet aortic valve without stenosis or apparent regurgitation. Tricuspid Valve:Normal tricuspid valve. Trace tricuspid regurgitation. RVSP could not be estimated. Pulmonic Valve: Normal pulmonic valve. No evidence of pulmonic regurgitation or stenosis. Aorta: ?Normal size aortic root, ascending aorta, arch and proximal descending aorta. Pericardium: ?No evidence of pericardial effusion. CONCLUSIONS: 1. Left ventricular size is normal with mild concentric hypertrophy and normal global systolic function. LVEF 57%. Normal ?? diastolic filling pressure. Normal segmental wall motion. 2. Right ventricular size and systolic function are normal. 3. No significant valve lesions. ?? 4. Indeterminate pulmonary artery pressure. Bryant Sandoval (Electronically Signed) Final Date:28 April 2019 06:54 Procedure Note Bryant Sandoval MD - 04/28/[address] [address] Echocardiology and Vascular Laboratory Name: JOSE GUARDADO Gender: MReferring Physician:UNKNOWN, UNKNOWN : 1985 Agricultural Commodities Grader: Margaret VestalOrdering Physician:JASON FAUSTIN MD (ttran) Exam Date: 04/27/2019 15:26 MR #: [id number]:Physician Point of Origin:S2 ICUAccount #: [id number] Procedure CPT: ICD Codes: Clinical Indications: Chest pain, ACS suspected Study Quality: Fair BP (mmHg): 133 / 79 MEASUREMENTS 2D ECHO LV Diastolic Diameter Base LX 4.9 cm 3.0-5.7LVPW Systolic Thickness 2 cm LV Systolic Diameter Base LX 3.2 cm 2.3-4.9LVPW Percent Thickening 0.42 LA Systolic Diameter LX 3.6 cmBody Height 74 in Fractional Shortening BASE LX 0.36 0.18-0.42Body Weight 283 lb LV Diastolic Volume MOD BP 150 mlBody Surface Area 2.6 m?? LV Systolic Volume MOD BP 64.8 ml LAAo Ratio 0.97 IVS Diastolic Thickness 1.3 cm 0.6-1.1 cm LAVolume 58.7 ml IVS Systolic Thickness 1.7 cm LAVolume Index 22.3 ml/m?? IVS Percent Thickening 0.24Aortic Root Diameter 3.7 cm 2.0-3.7 cm LVPW Diastolic Thickness 1.4 cm 0.6-1.1 cm RVDiameter 3.5 cm <4.2cm DOPPLER AV Peak Velocity 125 cm/s AVArea Cont Eq vti 3.5 cm?? AV Mean Velocity 91.1 cm/s AVArea Cont Eq pk 3.3 cm?? AV Peak Gradient 6.3 mmHgMitral E Point Velocity 88.8 cm/s AV Mean Gradient 4 mmHg MVPeak Velocity 83.2 cm/s AV Velocity Time Integral 25.6 cm MVPeak Gradient 2.8 mmHg AV Stroke Volume 106 cm?? MVMean Velocity 42.9 cm/s Heart Rate 63 bpm MVMean Gradient 1 mmHg Cardiac Output 6.7 liters/minMV Velocity TimeIntegral 29.9 cm LVOT Peak Velocity 98.3 cm/s PVPeak Velocity 78.2 cm/s LVOT Mean Velocity 70.9 cm/s PVPeak Gradient 2.4 mmHg LVOT Peak Gradient 3.9 mmHg PVVelocity Time Integral 21.6 cm LVOT Mean Gradient 2 mmHg PVMean Velocity 59.1 cm/s LVOT Velocity Time Integral 21.4 cm PVMean Gradient 1.5 mmHg LVOT Diameter 2.3 cmMitral E to LV E' Lateral Ratio 8.1 LVOT Area 4.2 cm??Mitral E to LV E' Septal Ratio 9.2 LVOT AV Darwin Ratio 0.79Mitral E to LV E' Average 8.7 Contrast Used: None Left Ventricle: Mild concentric left ventricular hypertrophy. Normal leftventricular size and systolic function without regional wall motion abnormalities. Measured biplane LVEFis 57%. Normal LV diastolic function. Left Atrium: Normal left atrial size per volume index criteria 22ml/m??. Right Ventricle:Normal right ventricular size and function. Right Atrium: Normal right atrial size. Mitral Valve: Normal mitral valve leaflets. No evidence of mitralstenosis. Minimal mitral regurgitation. Aortic Valve: Mildly thickened trileaflet aortic valve without stenosisor apparent regurgitation. Tricuspid Valve:Normal tricuspid valve. Trace tricuspid regurgitation.RVSP could not be estimated. Pulmonic Valve: Normal pulmonic valve. No evidence of pulmonicregurgitation or stenosis. Aorta: Normal size aortic root, ascending aorta, arch andproximal descending aorta. Pericardium: No evidence of pericardial effusion. CONCLUSIONS: 1. Left ventricular size is normal with mild concentric hypertrophy andnormal global systolic function. LVEF 57%. Normal diastolic filling pressure. Normal segmental wall motion. 2. Right ventricular size and systolic function are normal. 3. No significant valve lesions. 4. Indeterminate pulmonary artery pressure. Bryant Sandoval (Electronically Signed) Final Date:28 April 2019 06:54 Result [facility] Jason Faustin MD CV ECHO PROCEDURES Final Result * ECG 12 lead (04/27/2019 6:50 AM CDT) Pathologist [facility] Ventricular Rate EKG/Min 64 BPM [facility] Atrial Rate 64 BPM [facility] NH-Interval (MSEC) 158 ms [facility] QRS-Interval (MSEC) 104 ms [facility] QT-Interval (MSEC) 438 ms [facility] QTc 451 ms [facility] P [place] 42 degrees [facility] R [place] 22 degrees [facility] T [place] 20 degrees [facility] Diagnosis Normal sinus rhythm Septal infarct (cited on or before 26-APR-2019) Abnormal ECG When compared with ECG of 26-APR-2019 16:38, Incomplete right bundle branch block is no longer Present Borderline criteria for Inferior infarct are no longer Present Confirmed by Gwyn MENDEZ, SURINDER Brewer (9) on 04/27/2019 9:49:32 AM [facility] 04/27/2019 6:50 AM CDT 04/27/2019 9:49 AM CDT Jason Faustin MD ECG ORDERABLES Final Res ult [facility] * T4, free (04/27/2019 4:58 AM CDT) Pathologist [facility] Free T4 0.92 0.90 - 1.70 ng/dL [facility] ([place]) Blood specimen (specimen) 04/27/2019 4:58 AM CDT 04/27/2019 7:26 AM CDT Jason Faustin MD LAB BLOOD ORDERABLES Ayse l Result [facility] ([place]) [address] Department [place] [address] * TSH (04/27/2019 4:58 AM CDT) Thyroid Stimulating Hormone 1.59 0.30 - 4.20 mcIUnit/mL [facility] ([place]) Blood specimen (specimen) 04/27/2019 4:58 AM CDT 04/27/2019 7:26 AM CDT us Jason Faustin MD LAB BLOOD ORDERABLES yAse emerson Result [facility] ([place]) [address] [facility] [address] [place] [address] * (ABNORMAL) Lipid panel (04/27/2019 4:58 AM CDT) Cholesterol 228(H) 30 - 199 mg/dL [facility] ([place]) Comment: Interpretive Data Ages < or = 19 years ??Acceptable: ? <170 mg/dL ??Borderline high: ??170-199 mg/dL ??High: ? >or= 200 mg/dL Ages > or = 20 years ??Desirable: ?<200 mg/dL ??Borderline high: ??200-239 mg/dL ??High: ? >or= 240 mg/dL Literature References: 1. Expert Panel on Integrated Guidelines for Cardiovascular Health and Risk Reduction in Children and Adolescents. Pediatrics 2011;128:S213 2. NCEP Expert Panel. Circulation 2004;110:227 Current Interpretive Data was last revised on 2018. Triglycerides 291(H) <=149 mg/dL [facility] ([place]) Comment: Interpretive Data Ages < or = 9 years ??Acceptable: ? <75 mg/dL ??Borderline high: ??75-99 mg/dL ??High: ? >or= 100 mg/dL Ages 10 to 20 years ??Acceptable: ? <90 mg/dL ??Borderline high: ??90-129 mg/dL ??High: ? >or= 130 mg/dL Ages > or = 20 years ??Desirable: ?<150 mg/dL ??Borderline high: ??150-199 mg/dL ??High: ? 200-499 mg/dL ?Very high: ?? >or= 499 mg/dL Literature References: 1. Expert Panel on Integrated Guidelines for Cardiovascular Health and Risk Reduction in Children and Adolescents. Pediatrics 2011;128:S213 2. NCEP Expert Panel. Circulation 2004;110:227 Current Interpretive Data was last revised on 2018. HDL 32(L) >=40 mg/dL [facility] [place]) Comment: Interpretive Data Ages < or = 19 years ??Acceptable: ? >45 mg/dL ??Borderline low: ?? 40-45 mg/dL ??Low: ? <40 mg/dL Ages > or = 20 years ??Desirable: ?>or= 60 mg/dL ??Low: ? <40 mg/dL Literature References: 1. Expert Panel on Integrated Guidelines for Cardiovascular Health and Risk Reduction in Children and Adolescents. Pediatrics 2011;128:S213 2. NCEP Expert Panel. Circulation 2004;110:227 Current Interpretive Data was last revised on 2018. LDL, calculated 138(H) <=129 mg/dL [facility] ([place]) Comment: Interpretive Data Ages < or = 19 years ??Acceptable: ? <110 mg/dL ??Borderline high: ??110-129 mg/dL ??High: ?>or= 130 mg/dL Ages > or = 20 years ??Optimal: ? <100 mg/dL ??Near optimal: ?100-129 mg/dL ??Borderline high: ?? 130-159 mg/dL ??High: ?>160 mg/dL Literature References: 1. Expert Panel on Integrated Guidelines for Cardiovascular Health and Risk Reduction in Children and Adolescents. Pediatrics 2011;128:S213 2. NCEP Expert Panel. Circulation 2004;110:227 Current Interpretive Data was last revised on 2018. Non-HDL Cholesterol 196 mg/dL [facility] [place]) Comment: Interpretive Data Ages < or = 19 years ??Acceptable: ?<120 mg/dL ??Borderline high: ??120-144 mg/dL ??High: ?>145 mg/dL Ages > or = 20 years ??When triglycerides are >200 mg/dL, Non-HDL cholesterol is a secondary target of ? therapy with treatment goals that are 30 mg/dL greater than the LDL cholesterol target. ? Literature References: 1. Expert Panel on Integrated Guidelines for Cardiovascular Health and Risk Reduction in Children and Adolescents. Pediatrics 2011;128:S213 2. NCEP Expert Panel. Circulation 2004;110:227 Current Interpretive Data was last revised on 2018. Chol/HDL ratio 7 TO [facility] [place]) Blood specimen (specimen) 04/27/2019 4:58 AM CDT 04/27/2019 7:26 AM CDT us Jason Faustin MD LAB BLOOD ORDERABLES Ayse emerson Result [facility] ([place]) [address] [facility] [address] [place] [address] * eGFR (04/27/2019 4:58 AM CDT) eGFR >90 mL/min/1.7 3 m2 [facility] [place] Comment: Interpretive Data Reference Interval Normal ?>/= 90 mL/min/1.73m2 Mildly decreased* ? 60 - 89 mL/min/1.73m2 Mildly to moderately decreased ?45 - 59 mL/min/1.73m2 Moderately to severely decreased ??30 - 44 mL/min/1.73m2 Severely decreased ?15 - 29 mL/min/1.73m2 Kidney Failure ?< 15 ??mL/min/1.73m2 *Relative to young adult level If -[place]aro[place] multiply value by 1.16. Estimated glomerular filtration rate is determined by the CKD-EPI equation recommended by the National Kidney Foundation (KDIGO 2012 Clinical Practice Guideline for the Evaluation and Management of Chronic Kidney Disease. Kidney Intnl Suppl Oct 2012;3:1). The CKD-EPI equation should not be used for patients with unstable renal function and has not been validated in children and those over 70. Current interpretive data was last reviewed 2016. Blood specimen (specimen) 04/27/2019 4:58 AM CDT 04/27/2019 5:04 AM CDT Jason Faustin MD LAB BLOOD ORDERABLES Ayse emerson Result [facility] ([place]) [address] [place] [address] * (ABNORMAL) Differential, auto (04/27/2019 4:58 AM CDT) Neutrophil abs 6.4 1.7 - 6.5 K/cumm [facility] ([place]) Imm gran abs 0.0 0.0 - 0.1 K/cumm [facility] ([place]) Lymphocyte abs 2.3 0.8 - 3.3 K/cumm [facility] ([place]) Monocyte abs 0.9(H) 0.2 - 0.8 K/cumm [facility] ([place]) Eosinophil abs 0.2 0.0 - 0.5 K/cumm [facility] ([place]) Basophil abs 0.1 0.0 - 0.1 K/cumm [facility] ([place]) Neutrophil pct 64.9 % [facility] ([place]) Comment: Interpretive Data Percent cell count reference ranges are not reported, since discordance with absolute values may lead to misinterpretation of CBC data. Current Interpretive Data was last revised on 2018. Imm gran pct 0.4 % [facility] ([place]) Comment: Interpretive Data Percent cell count reference ranges are not reported, since discordance with absolute values may lead to misinterpretation of CBC data. Current Interpretive Data was last revised on 2018. Lymphocyte pct 23.1 % [facility] ([place]) Comment: Interpretive Data Percent cell count reference ranges are not reported, since discordance with absolute values may lead to misinterpretation of CBC data. Current Interpretive Data was last revised on 2018. Monocyte pct 9.5 % [facility] ([place]) Comment: Interpretive Data Percent cell count reference ranges are not reported, since discordance with absolute values may lead to misinterpretation of CBC data. Current Interpretive Data was last revised on 2018. Eosinophil pct 1.5 % [facility] ([place]) Comment: Interpretive Data Percent cell count reference ranges are not reported, since discordance with absolute values may lead to misinterpretation of CBC data. Current Interpretive Data was last revised on 2018. Basophil pct 0.6 % [facility] ([place]) Comment: Interpretive Data Percent cell count reference ranges are not reported, since discordance with absolute values may lead to misinterpretation of CBC data. Current Interpretive Data was last revised on 2018. Blood specimen (specimen) 04/27/2019 4:58 AM CDT 04/27/2019 5:04 AM CDT Jason Faustin MD LAB BLOOD ORDERABLES Ayse l Result [facility] ([place]) [address] [place] [address] * Magnesium (04/27/2019 4:58 AM CDT) Magnesium 2.0 1.6 - 2.6 mg/dL [facility] ([place]) Blood specimen (specimen) 04/27/2019 4:58 AM CDT 04/27/2019 5:04 AM CDT us Jason Faustin MD LAB BLOOD ORDERABLES Ayse l Result [facility] ([place]) [address] [facility] [place] [address] * CBC with auto differential (04/27/2019 4:58 AM CDT) WBC 9.9 3.8 - 9.9 K/cumm [facility] ([place]) Hgb 14.3 13.0 - 17.5 g/dL [facility] ([place]) Hct 40.8 38.9 - 50.3 % [facility] ([place]) Plt 168 150 - 400 K/cumm [facility] ([place]) MPV 11.4 9.1 - 12.3 fL [facility] ([place]) RBC 4.43 4.30 - 5.80 M/cumm [facility] ([place]) MCV 92.1 81.3 - 96.4 fL [facility] ([place]) MCH 32.3 27.1 - 33.3 pg [facility] ([place]) MCHC 35.0 32.3 - 35.7 g/dL [facility] ([place]) RDW CV 12.5 11.1 - 14.9 % [facility] ([place]) RDW SD 42.1 35.7 - 48.1 fL [facility] NRBC abs 0.00 0.00 - 0.01 K/cumm [facility] ([place]) Blood specimen (specimen) 04/27/2019 4:58 AM CDT 04/27/2019 5:04 AM CDT Narrative [facility] - 04/27/2019 5:25 AM CDT Am after procedure us Jason Faustin MD LAB BLOOD ORDERABLES Ayse l Result [facility] ([place]) [address] [facility] [place] [address] * (ABNORMAL) Comprehensive metabolic panel (04/27/2019 4:58 AM CDT) Sodium 139 135 - 145 mmol/L [facility] ([place]) Potassium, pl 4.2 3.3 - 4.9 mmol/L [facility] ([place]) Chloride 103 97 - 110 mmol/L [facility] ([place]) CO2 20(L) 22 - 32 mmol/L [facility] ([place]) Anion gap 16(H) 2 - 15 mmol/L [facility] ([place]) BUN 12 8 - 25 mg/dL [facility] ([place]) Creatinine 0.92 0.80 - 1.30 mg/dL [facility] ([place]) Glucose 105 70 - 199 mg/dL [facility] ([place]) Comment: Interpretive Data Fasting glucose >/= 126 mg/dl is diagnostic for diabetes. ?? Fasting is defined as no caloric intake for at least 8 hours. Fasting glucose between 100 mg/dl to 125 mg/dl is diagnostic of prediabetes. In a patient with classic symptoms of hyperglycemia or hyperglycemic crisis, a random glucose >/= 200 mg/dl is diagnostic for diabetes. In the absence of unequivocal hyperglycemia, results should be confirmed by repeat testing. The classification and Diagnosis of Diabetes Diabetes Care 2017;40 (Suppl. 1):S11. Current interpretive data was last revised 2017. Calcium 9.2 8.5 - 10.3 mg/dL [facility] ([place]) Bilirubin, total 0.6 0.1 - 1.2 mg/dL [facility] ([place]) Protein, pl 7.1 6.5 - 8.5 g/dL [facility] ([place]) Albumin 4.2 3.5 - 5.0 g/dL [facility] ([place]) Alk phos 59 40 - 130 Units/L [facility] ([place]) ALT 35 7 - 55 Units/L [facility]) AST 116(H) 10 - 50 Units/L [facility] ([place]) Blood specimen (specimen) 04/27/2019 4:58 AM CDT 04/27/2019 5:04 AM CDT Narrative [facility] ([place]) - 04/27/2019 5:51 AM CDT In am after procedure Jason Faustin MD LAB BLOOD ORDERABLES Ayse l Result Performing Organization Address City/[facility]/ZIP Co de Phone Number [facility] [place]) [address] [place], [place] [id number] * (ABNORMAL) Troponin T (04/27/2019 4:58 AM CDT) Troponin T 2.05(H) 0.00 - 0.01 ng/mL [facility] ([place]) Comment: Interpretive Data Reference ranges for children <18 years of age have not been established. - > or = 18 years: Serial determinations are recommended for the diagnosis of myocardial infarction. ??Temporal rise and fall are consistent with myocardial infarction when at least one value is above the 99th percentile upper reference limit for troponin assay. ??Journal of the [place] [employer] 2012;60:1581-98. Current Interpretive Data Last Revised Date: 2018. Blood specimen (specimen) 04/27/2019 4:58 AM CDT 04/27/2019 5:04 AM CDT Jason Faustin MD LAB BLOOD ORDERABLES Edit ed Result - Final Performing Organization Address [facility] Co de Phone Number [facility] [place]) [address] [place] [address] * (ABNORMAL) Troponin T (04/26/2019 7:23 PM CDT) Troponin T 0.87(H) 0.00 - 0.01 ng/mL [facility] ([place]) Comment: Interpretive Data Reference ranges for children <18 years of age have not been established. - > or = 18 years: Serial determinations are recommended for the diagnosis of myocardial infarction. ??Temporal rise and fall are consistent with myocardial infarction when at least one value is above the 99th percentile upper reference limit for troponin assay. ??Journal of the [place] [employer] 2012;60:1581-98. Current Interpretive Data Last Revised Date: 2018. Blood specimen (specimen) 04/26/2019 7:23 PM CDT 04/26/2019 8:23 PM CDT Jason Faustin MD LAB BLOOD ORDERABLES Ayse l Result [facility] [place]) [address] [place] [address] * ECG 12 lead (04/26/2019 4:38 PM CDT) Pathologist [facility] Ventricular Rate EKG/Min 79 BPM [facility] Atrial Rate 79 BPM [facility] NH-Interval (MSEC) 162 ms [facility] QRS-Interval (MSEC) 112 ms [facility] QT-Interval (MSEC) 382 ms [facility] QTc 438 ms [facility] P [place] 3 degrees [facility] R [place] 47 degrees [facility] T [place] 4 degrees [facility] Diagnosis Normal sinus rhythm Incomplete right bundle branch block Septal infarct , age undetermined Possible Inferior infarct , age undetermined Abnormal ECG When compared with ECG of 26-APR-2019 15:07, Borderline criteria for Inferior infarct are now Present ST no longer depressed in Inferior leads Nonspecific T wave abnormality now evident in Lateral leads Confirmed by Gwyn MENDEZ, SURINDER Brewer (9) on 04/26/2019 5:56:20 PM [facility] 04/26/2019 4:38 PM CDT 04/26/2019 5:56 PM CDT us Jason Faustin MD ECG ORDERABLES Final Res ult [facility] * LEFT HEART CATHETERIZATION WITH CORONARY ANGIOGRAPHY AND WITH AND WITHOUT LEFT VENTRICULOGRAM (04/26/2019 3:58 PM CDT) Anatomical Region Laterality Modality X-Ray Angiograph y Narrative 04/27/2019 6:44 AM CDT Indications Cath Status: Emergent Heart Failure Classification: No Symptoms Visit Indications: ACS <=24hrs and Suspected CAD Syntax Score: low Frailty Measures: 2) Well Has patient had stress or imaging studies performed? No. Dominance: Left Intervention performed? Yes, 1 Lesion. ?? Lesion 1 Pre-Proc Post - Proc GISELA 0 GISELA 3 Pre PCI Stenosis 100% Acute Occlusion. Lesion Risk: High Post PCI Stenosis 0%. Pre-Procedure Assessment A history and physical has been performed. Patient medications and allergies have been reviewed. The risks and benefits of the procedure and the sedation options and risks were discussed with the patient. All questions were answered and informed consent was obtained. Patient identification and proposed procedure were verified prior to the procedure by the drum sander setter, the nurse and the technologist in the rn labor delivery. Pre-procedure physical examination revealed no contraindications to sedation. Mental status evaluation showed the patient to be alert and oriented. Airway examination showed normal oropharyngeal airway. Respiratory examination of the patient showed lungs to be clear to auscultation. Cardiovascular examination of the patient showed no findings which would prohibit or delay the procedure. ASA grade is ASA 3 - Patient with moderate systemic disease with functional limitations. After reviewing the risks and benefits, the patient was deemed in satisfactory condition to undergo the procedure. The anesthesia plan was to use moderate analgesia or sedation (conscious sedation). Use of a reversal agent was not planned. Immediately prior to administration of medications, the patient was re-assessed for adequacy to receive sedatives. The heart rate, respiratory rate, oxygen saturations, blood pressure, adequacy of pulmonary ventilation, and response to care were monitored throughout the procedure. The physical status of the patient was re-assessed after the procedure. Description of Procedure After access was obtained, left heart catheterization was followed by selective angiography using standard technique. Findings/ Interventions Coronary Findings ?? Left Main The Left Main is Angiographically Normal. Left Anterior Descending (LAD) Proxial LAD 100% Acute Occlusion Ramus Intermedius None Left Circumflex Mid Circumflex 30% Right Coronary Artery (RCA) The Right Coronary Artery is Angiographically Normal. The patient's right radial artery was accessed using a modified Seldinger technique and a 6 Montenegrin slender sheath was put in place. ??He was anticoagulated using Angiomax. ??I cannulated the ostium of the left main using a 6 Montenegrin EBU 3.5 guide catheter. ??I wired the LAD with minimal difficulty using 180 cm Prowater wire. ??I angioplastied multiple times using a 2.5 mm Trek balloon. ??We went up to 10-12 atmospheres. ??Patient went from GISELA 0 flow to GISELA 2 flow. ??I then stented the vessel using a 3.5 x 23 mm Xience BERNADETTE and deployed it at 20 atmospheres. ??I then post dilated using a 4 mm noncompliant Trek balloon at 18 atmospheres. ??There was very good angiographic result. ??The stent was fully expanded. ??There was no evidence of any dissection, perforation or distal embolization. ?? Patient's chest pain resolved. ??He was hemodynamically stable. ??He was loaded with aspirin Brilinta prior to leaving the rn labor delivery. MEASUREMENTS See attached hemodynamic data in procedure log report. Complications No immediate complications. Impression Total anesthesia time with continuous face to face monitoring was from 1533 to 1558 Access Site: ??The right radial artery was used for access with a 6 Montenegrin sheath. Hemodynamic/Pressures: The left ventricular end diastolic pressure was elevated at 30. Left Ventricular Function: ??Moderate left ventricular systolic dysfunction was present with an ejection fraction of 35. Coronary Intervention ??Successful angioplasty and placement of a drug-eluting stent in the left anterior descending coronary artery with no significant residual stenosis. 34-year-old white male who presents with an acute anterior STEMI. ?? 04/26/2019. ??Peak troponin 2. 1. SEVERE CAD. ??Anterior STEMI. ??Last [facility] on 04/26/2019. ? EKG. ??04/26/2019. ??Mild [address] elevations in the anterolateral leads. ?? Normal sinus rhythm. ? LAD. ??100% acute proximal occlusion. ??3.5 mm Xience BERNADETTE post dilated to 4 mm. ? Circumflex. ??Dominant circulation. ??30% plaquing ? LVEDP of 30 mmHg with no gradient across aortic valve ? Left ventriculargram demonstrates a ejection fraction of 35% with anterior apical hypokinesis to akinesis. 2. Tobacco abuse 3. NKDA 4. FHx: ??Father had an LA at age 35 Recommendations ?? Optimal medical therapy ?? Admit to the ICU ?? Start aspirin, Brilinta, Coreg, losartan, Lipitor ?? Echocardiogram ?? Nicotine patch ?? Strongly recommend that the patient quit smoking Signed by: Jason Faustin MD . Jason Ambika Faustin MD CV CARDIAC CATH PROCEDURE S Final Result * Differential, auto (04/26/2019 3:38 PM CDT) Neutrophil abs 5.0 1.7 - 6.5 K/cumm [facility] ([place]) Imm gran abs 0.0 0.0 - 0.1 K/cumm [facility] [place]) Lymphocyte abs 1.5 0.8 - 3.3 K/cumm [facility] ([place]) Monocyte abs 0.7 0.2 - 0.8 K/cumm [facility] [place]) Eosinophil abs 0.1 0.0 - 0.5 K/cumm [facility] [place]) Basophil abs 0.0 0.0 - 0.1 K/cumm [facility] [place]) Neutrophil pct 68.3 % [facility] ([place]) Comment: Interpretive Data Percent cell count reference ranges are not reported, since discordance with absolute values may lead to misinterpretation of CBC data. Current Interpretive Data was last revised on 2018. Imm gran pct 0.3 % [facility] ([place]) Comment: Interpretive Data Percent cell count reference ranges are not reported, since discordance with absolute values may lead to misinterpretation of CBC data. Current Interpretive Data was last revised on 2018. Lymphocyte pct 20.3 % [facility] ([place]) Comment: Interpretive Data Percent cell count reference ranges are not reported, since discordance with absolute values may lead to misinterpretation of CBC data. Current Interpretive Data was last revised on 2018. Monocyte pct 9.0 % [facility] ([place]) Comment: Interpretive Data Percent cell count reference ranges are not reported, since discordance with absolute values may lead to misinterpretation of CBC data. Current Interpretive Data was last revised on 2018. Eosinophil pct 1.4 % [facility] ([place]) Comment: Interpretive Data Percent cell count reference ranges are not reported, since discordance with absolute values may lead to misinterpretation of CBC data. Current Interpretive Data was last revised on 2018. Basophil pct 0.7 % [facility] ([place]) Comment: Interpretive Data Percent cell count reference ranges are not reported, since discordance with absolute values may lead to misinterpretation of CBC data. Current Interpretive Data was last revised on 2018. Blood specimen (specimen) 04/26/2019 3:38 PM CDT 04/26/2019 3:41 PM CDT Jason Faustin MD LAB BLOOD ORDERABLES Ayse l Result [facility] ([place]) [address] [place] [address] * CBC with auto differential (04/26/2019 3:38 PM CDT) WBC 7.3 3.8 - 9.9 K/cumm [facility] ([place]) Hgb 14.4 13.0 - 17.5 g/dL [facility] ([place]) Hct 40.7 38.9 - 50.3 % [facility] ([place]) Plt 150 150 - 400 K/cumm [facility] ([place]) MPV 11.1 9.1 - 12.3 fL [facility] ([place]) RBC 4.46 4.30 - 5.80 M/cumm [facility] ([place]) MCV 91.3 81.3 - 96.4 fL [facility] ([place]) MCH 32.3 27.1 - 33.3 pg [facility] ([place]) MCHC 35.4 32.3 - 35.7 g/dL [facility] ([place]) RDW CV 12.2 11.1 - 14.9 % [facility] ([place]) RDW SD 40.6 35.7 - 48.1 fL [facility] ([place]) NRBC abs 0.00 0.00 - 0.01 K/cumm [facility] ([place]) Blood specimen (specimen) 04/26/2019 3:38 PM CDT 04/26/2019 3:41 PM CDT us Jason Faustin MD LAB BLOOD ORDERABLES Ayse l Result Performing Organization Address City/[facility]/ZIP Co de Phone Number [facility] ([place]) [address] [place] [address] * XR Chest 1 Vw Portable (04/26/2019 3:20 PM CDT) Anatomical Region Laterality Modality Body, Chest N/A Computed Radiogr aphy 04/26/2019 3:29 PM CDT Impressions 04/26/2019 3:33 PM CDT No acute pathology The above report was dictated at [facility] Narrative 04/26/2019 3:33 PM CDT EXAM DESCRIPTION: XR CHEST 1 VIEW EXAM DATE: 04/26/2019 15:05 COMPARISON: None HISTORY: Chest pain FINDINGS: Heart and mediastinum is normal in size. There is no consolidation, effusion or pneumothorax. Procedure Note Juan Miguel Cornell MD - 04/26/2019 EXAM DESCRIPTION: XR CHEST 1 VIEW EXAM DATE: 04/26/2019 15:05 COMPARISON: None HISTORY: Chest pain FINDINGS: Heart and mediastinum is normal in size. There is no consolidation, effusion or pneumothorax. IMPRESSION: No acute pathology The above report was dictated at [facility] Rosa Elena Goode MD IMG XR PROCED URES Final Result * POCT creatinine (04/26/2019 3:13 PM CDT) Creatinine POC 1.2 0.4 - 1.2 mg/dL [facility] ([place]) Blood specimen (specimen) 04/26/2019 3:13 PM CDT 04/26/2019 3:13 PM CDT us Notinfile Unknown LAB POCT ORDERABLES - DEVICE F inal Result Performing Organization Address City/[facility]/ZIP Co de Phone Number [facility] ([place]) [address] [place] [address] [phone] * ECG 12 lead (04/26/2019 3:07 PM CDT) Systolic Blood Pressure 144 mmHg [facility] Diastolic Blood Pressure 96 mmHg [facility] Ventricular Rate EKG/Min 75 BPM [facility] Atrial Rate 75 BPM [facility] NH-Interval (MSEC) 162 ms [facility] QRS-Interval (MSEC) 102 ms [facility] QT-Interval (MSEC) 390 ms [facility] QTc 435 ms [facility] P [place] 52 degrees [facility] R [place] -20 degrees [facility] T [place] 11 degrees [facility] Diagnosis Normal sinus rhythm with sinus arrhythmia Incomplete right bundle branch block Borderline ECG When compared with ECG of 26-APR-2019 15:04, No significant change was found Confirmed by Gwyn MENDEZ, SURINDER Brewer ([id number]) on 04/26/2019 4:02:09 PM [facility] 04/26/2019 3:07 PM CDT 04/26/2019 4:02 PM CDT us Rosa Elena Goode MD ECG ORDERABLE S Final Result [facility] * ECG 12 lead (04/26/2019 3:04 PM CDT) Systolic Blood Pressure 144 mmHg [facility] Diastolic Blood Pressure 96 mmHg [facility] Ventricular Rate EKG/Min 86 BPM [facility] Atrial Rate 86 BPM [facility] NH-Interval (MSEC) 162 ms [facility] QRS-Interval (MSEC) 100 ms [facility] QT-Interval (MSEC) 388 ms [facility] QTc 464 ms [facility] P [place] 45 degrees [facility] R [place] -19 degrees [facility] T [place] 14 degrees [facility] Diagnosis Normal sinus rhythm with sinus arrhythmia Incomplete right bundle branch block Septal infarct , age undetermined Abnormal ECG No previous ECGs available Confirmed by Gwyn MENDEZ DAN L. (9) on 04/26/2019 4:02:17 PM [facility] 04/26/2019 3:04 PM CDT 04/26/2019 4:02 PM CDT us Rosa Elena Goode MD ECG ORDERABLE S Final Result [facility] * eGFR (04/26/2019 3:04 PM CDT) [facility] eGFR 76 mL/min/1.7 3 m2 [facility] ([place]) Comment: Interpretive Data Reference Interval Normal ?>/= 90 mL/min/1.73m2 Mildly decreased* ? 60 - 89 mL/min/1.73m2 Mildly to moderately decreased ?45 - 59 mL/min/1.73m2 Moderately to severely decreased ??30 - 44 mL/min/1.73m2 Severely decreased ?15 - 29 mL/min/1.73m2 Kidney Failure ?< 15 ??mL/min/1.73m2 *Relative to young adult level If -Faroese multiply value by 1.16. Estimated glomerular filtration rate is determined by the CKD-EPI equation recommended by the National Kidney Foundation (KDIGO 2012 Clinical Practice Guideline for the Evaluation and Management of Chronic Kidney Disease. Kidney Intnl Suppl Oct 2012;3:1). The CKD-EPI equation should not be used for patients with unstable renal function and has not been validated in children and those over 70. Current interpretive data was last reviewed 2016. Blood specimen (specimen) 04/26/2019 3:04 PM CDT 04/26/2019 3:08 PM CDT us Rico Adame MD LAB BLOOD ORDERABLES Ayse l Result [facility] ([place]) [address] [place] [address] * Differential, auto (04/26/2019 3:04 PM CDT) Neutrophil abs 3.2 1.7 - 6.5 K/cumm [facility] ([place]) Imm gran abs 0.0 0.0 - 0.1 K/cumm [facility] ([place]) Lymphocyte abs 2.0 0.8 - 3.3 K/cumm [facility] ([place]) Monocyte abs 0.5 0.2 - 0.8 K/cumm [facility] ([place]) Eosinophil abs 0.1 0.0 - 0.5 K/cumm [facility] ([place]) Basophil abs 0.0 0.0 - 0.1 K/cumm [facility] Neutrophil pct 53.9 % [facility] ([place]) Comment: Interpretive Data Percent cell count reference ranges are not reported, since discordance with absolute values may lead to misinterpretation of CBC data. Current Interpretive Data was last revised on 2018. Imm gran pct 0.7 % [facility] Comment: Interpretive Data Percent cell count reference ranges are not reported, since discordance with absolute values may lead to misinterpretation of CBC data. Current Interpretive Data was last revised on 2018. Lymphocyte pct 33.9 % [facility] ([place]) Comment: Interpretive Data Percent cell count reference ranges are not reported, since discordance with absolute values may lead to misinterpretation of CBC data. Current Interpretive Data was last revised on 2018. Monocyte pct 8.5 % [facility] Comment: Interpretive Data Percent cell count reference ranges are not reported, since discordance with absolute values may lead to misinterpretation of CBC data. Current Interpretive Data was last revised on 2018. Eosinophil pct 2.2 % [facility] ([place]) Comment: Interpretive Data Percent cell count reference ranges are not reported, since discordance with absolute values may lead to misinterpretation of CBC data. Current Interpretive Data was last revised on 2018. Basophil pct 0.8 % [facility] ([place]) Comment: Interpretive Data Percent cell count reference ranges are not reported, since discordance with absolute values may lead to misinterpretation of CBC data. Current Interpretive Data was last revised on 2018. Blood specimen (specimen) 04/26/2019 3:04 PM CDT 04/26/2019 3:08 PM CDT Rico Adame MD LAB BLOOD ORDERABLES Ayse l Result Performing Organization Address [facility] Co de Phone Number [facility] ([place]) [address] [employer] [employer] [place], [place] [id number] * Troponin T (04/26/2019 3:04 PM CDT) Troponin T <0.01 0.00 - 0.01 ng/mL [facility] Comment: Interpretive Data Reference ranges for children <18 years of age have not been established. - > or = 18 years: Serial determinations are recommended for the diagnosis of myocardial infarction. ??Temporal rise and fall are consistent with myocardial infarction when at least one value is above the 99th percentile upper reference limit for troponin assay. ??Journal of the [place] College [employer] 2012;60:1581-98. Current Interpretive Data Last Revised Date: 2018. Blood specimen (specimen) 04/26/2019 3:04 PM CDT 04/26/2019 3:08 PM CDT Rosa Elena Goode MD LAB BLOOD ORD ERABLES Final Result Performing Organization Address [facility] Co de Phone Number [facility] [address] [place] [address] * (ABNORMAL) Comprehensive metabolic panel (04/26/2019 3:04 PM CDT) Sodium 138 135 - 145 mmol/L [facility] ([place]) Potassium, pl 3.9 3.3 - 4.9 mmol/L [facility] ([place]) Chloride 100 97 - 110 mmol/L [facility]) CO2 22 22 - 32 mmol/L [facility] ([place]) Anion gap 16(H) 2 - 15 mmol/L [facility] ([place]) BUN 13 8 - 25 mg/dL [facility] ([place]) Creatinine 1.23 0.80 - 1.30 mg/dL [facility] ([place]) Glucose 131 70 - 199 mg/dL [facility] ([place]) Comment: Interpretive Data Fasting glucose >/= 126 mg/dl is diagnostic for diabetes. ?? Fasting is defined as no caloric intake for at least 8 hours. Fasting glucose between 100 mg/dl to 125 mg/dl is diagnostic of prediabetes. In a patient with classic symptoms of hyperglycemia or hyperglycemic crisis, a random glucose >/= 200 mg/dl is diagnostic for diabetes. In the absence of unequivocal hyperglycemia, results should be confirmed by repeat testing. The classification and Diagnosis of Diabetes Diabetes Care 2017;40 (Suppl. 1):S11. Current interpretive data was last revised 2017. Calcium 9.8 8.5 - 10.3 mg/dL [facility] ([place]) Bilirubin, total 0.6 0.1 - 1.2 mg/dL [facility] ([place]) Protein, pl 8.0 6.5 - 8.5 g/dL [facility] ([place]) Albumin 4.7 3.5 - 5.0 g/dL [facility] ([place]) Alk phos 65 40 - 130 Units/L [facility] ([place]) ALT 34 7 - 55 Units/L [facility]) AST 32 10 - 50 Units/L [facility] ([place]) Blood specimen (specimen) 04/26/2019 3:04 PM CDT 04/26/2019 3:08 PM CDT us Rosa Elena Goode MD LAB BLOOD ORD ERABLES Final Result [facility] ([place]) [address] [facility] [employer] [employer] [address] [place] [address] * CBC with auto differential (04/26/2019 3:04 PM CDT) WBC 6.0 3.8 - 9.9 K/cumm [facility] ([place]) Hgb 15.4 13.0 - 17.5 g/dL [facility] ([place]) Hct 44.1 38.9 - 50.3 % [facility] ([place]) Plt 174 150 - 400 K/cumm [facility] ([place]) MPV 11.1 9.1 - 12.3 fL [facility] ([place]) RBC 4.78 4.30 - 5.80 M/cumm [facility] ([place]) MCV 92.3 81.3 - 96.4 fL [facility] ([place]) MCH 32.2 27.1 - 33.3 pg [facility] ([place]) MCHC 34.9 32.3 - 35.7 g/dL [facility] ([place]) RDW CV 12.2 11.1 - 14.9 % [facility] ([place]) RDW SD 41.3 35.7 - 48.1 fL [facility] ([place]) NRBC abs 0.00 0.00 - 0.01 K/cumm [facility] ([place]) Blood specimen (specimen) 04/26/2019 3:04 PM CDT 04/26/2019 3:08 PM CDT Rosa Elena Goode MD LAB BLOOD ORD ERABLES Final Result [facility] ([place]) [address] [facility] [place] [address] documented in this encounter Visit Diagnoses Not on filedocumented in this encounter Administered Medications Inactive Administered Medications - up to 3 most recent administrations Medication Order MAR Action Action Date Dose Rate Site acetaminophen (TYLENOL) tablet 650 mg 650 mg, oral, Every 4 hours PRN, 1st line for pain, fever, fever greater than 38.3 C, Starting on Wed04/26/19 at 1646, Recovery (CV), Indications: Fever, PainIndications:Fever,Pain aspirin enteric coated tablet 81 mg 81 mg, oral, Daily, First dose on Jeni 04/27/19 at 0900, Recovery (CV), Do not crush, chew, cut, dissolve, open or otherwise manipulate tablet/capsule., Indications: cardiovascular diseaseIndications:cardiovascular disease Given 04/28/2019 9:07 AM CDT 81 mg Given 04/27/2019 9:01 AM CDT 81 mg atorvastatin (LIPITOR) tablet 80 mg 80 mg, oral, Nightly, First dose on Wed04/26/19 at 2100, Recovery (CV), Indications: myocardial infarction preventionIndications:myocardial infarction prevention Given 04/27/2019 8:19 PM CDT 80 mg Given 04/26/2019 8:23 PM CDT 80 mg atropine injection 1 mg 1 mg, intravenous, Administer over 1 Minutes, As needed, SYMPTOMATIC BRADYCARDIA, Starting on Wed04/26/19 at 1602, Indications: SYMPTOMATIC BRADYCARDIAIndications:SYMPTOM ATIC BRADYCARDIA bivalirudin (ANGIOMAX) 250 mg in sodium chloride 0.9% 50 mL infusion Continuous PRN, Starting on Wed04/26/19 at 1544, Intra-Procedure (CV) New Bag 04/26/2019 3:44 PM CDT 1.724 mg/kg/hr 43.8 mL/hr bivalirudin bolus 5 mg/mL As needed, Starting on Wed04/26/19 at 1544, Intra-Procedure (CV) Given 04/26/2019 3:44 PM CDT 18.8 mL carvedilol (COREG) tablet 6.25 mg 6.25 mg, oral, 2 times daily, First dose on Wed04/26/19 at 2100, Recovery (CV), Hold for SBP < 100 or HR < 60., Indications: cardiovascular diseaseIndications:cardiovascu lar disease Given 04/28/2019 9:07 AM CDT 6.25 mg Given 04/27/2019 8:20 PM CDT 6.25 mg Given 04/27/2019 9:01 AM CDT 6.25 mg diphenhydrAMINE (BENADRYL) tab/cap 25 mg 25 mg, oral, 4 times daily PRN, itching, allergies, Starting on Wed04/26/19 at 1602 enoxaparin (LOVENOX) syringe 40 mg 40 mg, subcutaneous, Daily (for enoxaparin), First dose on Jeni 04/27/19 at 2100, Indications: Deep Vein Thrombosis PreventionIndications:Deep Vein Thrombosis Prevention Given 04/27/2019 8:20 PM CDT 40 mg Left Upper Abdomen famotidine (PEPCID) tablet 20 mg 20 mg, oral, Daily PRN, indigestion, heartburn, Starting on Wed04/26/19 at 1646, Recovery (CV), Indications: Prevention of Stress UlcerIndications:Prevention of Stress Ulcer fentaNYL (SUBLIMAZE) preservative free injection 25 mcg 25 mcg, intravenous, Every 15 min PRN, while on bedrest, Starting on Wed04/26/19 at 1602 heparin 1,000 unit/mL injection As needed, Starting on Wed04/26/19 at 1538, Intra-Procedure (CV) Given 04/26/2019 3:38 PM CDT 5,000 Units Right Arm heparin 2500 units/500 mL (5 unit/mL) in sodium chloride 0.9% (premix) parenteral solution Continuous PRN, Starting on Wed04/26/19 at 1538, Intra-Procedure (CV) New Bag 04/26/2019 3:38 PM CDT 500 mL heparin 5,000 units/1,000 mL (5 units/mL) in sodium chloride 0.9% (premix) Continuous PRN, Starting on Wed04/26/19 at 1538, Intra-Procedure (CV) New Bag 04/26/2019 3:38 PM CDT 1,000 mL hydrALAZINE (APRESOLINE) injection 10 mg 10 mg, intravenous, Administer over 2 Minutes, Once as needed, high blood pressure, for bp greater than 160/ systolic, Starting on Wed04/26/19 at 1602, For 1 dose, Indications: hypertensionIndications:hype rtension ioversol (OPTIRAY 320) injection As needed, Starting on Wed04/26/19 at 1600, Intra-Procedure (CV) Given 04/26/2019 4:00 PM CDT 200 mL lidocaine (XYLOCAINE) 10 mg/mL (1 %) injection As needed, Starting on Wed04/26/19 at 1536, Intra-Procedure (CV), Indications: Administration of Local AnesthesiaIndications:Admini stration of Local Anesthesia Given 04/26/2019 3:36 PM CDT 1 mL Right Radial losartan (COZAAR) tablet 50 mg 50 mg, oral, Daily, First dose on Wed04/26/19 at 1730, Recovery (CV), HOLD and notify MD if SBP less than 90 mmHg., Indications: cardiovascular diseaseIndications:cardiovas cular disease Given 04/28/2019 9:08 AM CDT 50 mg Given 04/27/2019 9:01 AM CDT 50 mg Given 04/26/2019 6:05 PM CDT 50 mg midazolam (VERSED) preservative free injection 1 mg 1 mg, intravenous, Administer over 2 Minutes, As needed, anxiety, Starting on Wed04/26/19 at 1602, Indications: FOR SHEATH PULL OR WHILE ON BEDRESTIndications:FOR SHEATH PULL OR WHILE ON BEDREST midazolam (VERSED) preservative free injection Administer over 2 Minutes, As needed, Starting on Wed04/26/19 at 1529, Intra-Procedure (CV) Given 04/26/2019 3:40 PM CDT 2 mg Given 04/26/2019 3:29 PM CDT 2 mg nicotine (NICODERM CQ) 21 mg patch 24 hour 1 patch 1 patch, transdermal, Administer over 24 Hours, Daily, First dose on Jeni 04/27/19 at 0900 nitroglycerin in dextrose 5% 50 mg/250 mL (200 mcg/mL) infusion (premix) 5-400 mcg/min (1.5-120 mL/hr), 0.2 mg/mL, intravenous, Titrated, Starting on Wed04/26/19 at 1507, Until Wed04/28/19 at 1600, Initial rate: 10 mcg/min, Titrate: Up/Down, Titrate by: 10 mcg/min, Every: 5 minutes, Goal: Chest pain, STAT New Bag 04/26/2019 3:13 PM CDT 10 mcg/min 3 mL/hr ondansetron (ZOFRAN) injection 2 mg 2 mg, intravenous, Administer over 2 Minutes, Every 8 hours PRN, nausea, vomiting, Starting on Wed04/26/19 at 1646, Recovery (CV), Indications: Nausea and Vomiting, Nausea and VomitingIndications:Nausea and Vomiting,Nausea and Vomiting pantoprazole DR (PROTONIX) extended release tablet 40 mg 40 mg, oral, Daily before breakfast, First dose on Jeni 04/27/19 at 0730, Do not crush, chew, cut, dissolve, open or otherwise manipulate tablet/capsule., Indications: Stress Ulcer ProphylaxisIndications:Stress Ulcer Prophylaxis Given 04/28/2019 9:08 AM CDT 40 mg Given 04/27/2019 9:01 AM CDT 40 mg phenylephrine (CAROL-SYNEPHRINE) 1 mg/10 mL (100 mcg/mL) in sodium chloride 0.9% (premix) 0.1-0.2 mg 0.1-0.2 mg, intravenous, Every 15 min PRN, symptomatic SBP less than 90. Notify physician if given., Starting on Wed04/26/19 at 1602, Phenylephrine HCl (Neosynephrine) 1 mg diluted in 10 ml NS. Give 0.1-0.2 mg (1-2 ml of diluted solution) IV PRN for symptomatic SBP less than 90. Notify physician if given. For IV push, administer over 30 seconds. sodium chloride 0.9% infusion 30 mL/hr, intravenous, Continuous, Starting on Wed04/26/19 at 1515 Rate/Dose Change 04/26/2019 3:32 PM CDT 999 mL/hr 999 mL/hr New Bag 04/26/2019 3:16 PM CDT 30 mL/hr 30 mL/hr ticagrelor (BRILINTA) tablet 90 mg 90 mg, oral, 2 times daily, First dose on Wed04/26/19 at 2100, Recovery (CV), Indications: cardiovascular diseaseIndications:cardiovascular disease Given 04/28/2019 9:07 AM CDT 90 mg Given 04/27/2019 8:20 PM CDT 90 mg Given 04/27/2019 9:01 AM CDT 90 mg ticagrelor (BRILINTA) tablet As needed, Starting on Wed04/26/19 at 1556, Intra-Procedure (CV) Given 04/26/2019 3:56 PM CDT 180 mg verapamil (ISOPTIN) 2.5 mg, nitroglycerin 200 mcg in sodium chloride 0.9% 20 mL IV syringe As needed, Starting on Wed04/26/19 at 1538, Intra-Procedure (CV) Given 04/26/2019 3:38 PM CDT Right Arm documented in this encounter Discontinued Medications Medication Sig Discontinue Reason Start Date End Da te ticagrelor (BRILINTA) 90 mg tabletIndications:cardio vascular disease Take 1 tablet (90 mg total) by mouth 2 (two) times a day 04/28/2019 04/28/2019 documented as of this encounter Active and Recently Administered Medications Times are shown in CDT. Scheduled Medication Order 04/26/2019 04/27/2019 04/28/2019 aspirin enteric coated tablet 81 mg 81 mg, oral, Daily, First dose on Wed04/27/19 at 0900, Recovery (CV), Do not crush, chew, cut, dissolve, open or otherwise manipulate tablet/capsule., Indications: cardiovascular disease 900 (Given - Provider: Radha Julien RN) 906 (Given - Provider: Barby Salazar, RACQUEL) atorvastatin (LIPITOR) tablet 80 mg 80 mg, oral, Nightly, First dose on Wed04/26/19 at 2100, Recovery (CV), Indications: myocardial infarction prevention 2022 (Given - Provider: Kitty Esparza RN) 2018 (Given - Provider: Kayleigh Allan, RACQUEL) carvedilol (COREG) tablet 6.25 mg 6.25 mg, oral, 2 times daily, First dose on Wed04/26/19 at 2100, Recovery (CV), Hold for SBP < 100 or HR < 60., Indications: cardiovascular disease 2022 (Given - Provider: Kitty Esparza RN) 900 (Given - Provider: Radha Julien, RACQUEL)2019 (Given - Provider: Kayleigh Allan, RACQUEL) 906 (Given - Provider: Barby Salazar, RACQUEL) enoxaparin (LOVENOX) syringe 40 mg 40 mg, subcutaneous, Daily (for enoxaparin), First dose on Wed04/27/19 at 2100, Indications: Deep Vein Thrombosis Prevention 2019 (Given - Provider: Kayleigh Allan, RACQUEL) losartan (COZAAR) tablet 50 mg 50 mg, oral, Daily, First dose on Wed04/26/19 at 1730, Recovery (CV), HOLD and notify MD if SBP less than 90 mmHg., Indications: cardiovascular disease 1804 (Given - Provider: Any Agarwal RN) 900 (Given - Provider: Radha Julien RN) 09 (Given - Provider: Barby Salazar, RACQUEL) nicotine (NICODERM CQ) 21 mg patch 24 hour 1 patch 1 patch, transdermal, Administer over 24 Hours, Daily, First dose on Wed04/27/19 at 0900 0906 (Not Given - Provider: Radha Julien RN - Reason: Patient/family refused) 0908 (Not Given - Provider: Barby Salazar, RACQUEL - Reason: Patient/family refused) pantoprazole DR (PROTONIX) extended release tablet 40 mg 40 mg, oral, Daily before breakfast, First dose on Jeni 04/27/19 at 0730, Do not crush, chew, cut, dissolve, open or otherwise manipulate tablet/capsule., Indications: Stress Ulcer Prophylaxis 09 (Given - Provider: Radha Julien RN) 09 (Given - Provider: Barby Salazar, RACQUEL) ticagrelor (BRILINTA) tablet 90 mg 90 mg, oral, 2 times daily, First dose on Wed04/26/19 at 2100, Recovery (CV), Indications: cardiovascular disease 2022 (Given - Provider: Kitty Esparza, RACQUEL) 09 (Given - Provider: Radha Julien, RACQUEL)2019 (Given - Provider: Kayleigh Allan RN) 0907 (Given - Provider: Barby Salazar, RACQUEL) Continuous Medication Order 04/26/2019 04/27/2019 04/28/2019 nitroglycerin in dextrose 5% 50 mg/250 mL (200 mcg/mL) infusion (premix) 5-400 mcg/min (1.5-120 mL/hr), 0.2 mg/mL, intravenous, Titrated, Starting on Wed04/26/19 at 1507, Until Wed04/28/19 at 1600, Initial rate: 10 mcg/min, Titrate: Up/Down, Titrate by: 10 mcg/min, Every: 5 minutes, Goal: Chest pain, STAT 1513 (New Bag - Provider: Yesi Zaidi, RACQUEL)1522 (Continue to Inpatient Floor - Provider: Yesi Zaidi, RACQUEL - Comment: Continued to CCL) sodium chloride 0.9% infusion 30 mL/hr, intravenous, Continuous, Starting on Wed04/26/19 at 1515 1516 (New Bag - Provider: Yesi Zaidi, RACQUEL - Comment: carrier fluid for nitro)1522 (Continue to Inpatient Floor - Provider: Yesi Zaidi, RACQUEL - Comment: Continued to CCL)1532 (Rate/Dose Change - Provider: Derek Page) sodium chloride 0.9% infusion () 150 mL/hr, intravenous, Continuous, Starting on Wed04/26/19 at 1645, For 10 hours 1631 (New Bag - Provider: Any Agarwal RN)2000 (Rate/Dose Verify - Provider: Kitty Esparza, RACQUEL) 0205 (Stopped - Provider: Kitty Esparza, RACQUEL) PRN Medication Order 04/26/2019 04/27/2019 04/28/2019 acetaminophen (TYLENOL) tablet 650 mg 650 mg, oral, Every 4 hours PRN, 1st line for pain, fever, fever greater than 38.3 C, Starting on Wed04/26/19 at 1646, Recovery (CV), Indications: Fever, Pain atropine injection 1 mg 1 mg, intravenous, Administer over 1 Minutes, As needed, SYMPTOMATIC BRADYCARDIA, Starting on Wed04/26/19 at 1602, Indications: SYMPTOMATIC BRADYCARDIA bivalirudin (ANGIOMAX) 250 mg in sodium chloride 0.9% 50 mL infusion (CANCELED) Continuous PRN, Starting on Wed04/26/19 at 1544, Intra-Procedure (CV) 1544 (New Bag - Provider: Shelley Hubbard, RACQUEL)1558 (Stopped - Provider: Derek Page) bivalirudin bolus 5 mg/mL (CANCELED) As needed, Starting on Wed04/26/19 at 1544, Intra-Procedure (CV) 1544 (Given - Provider: Shelley Hubbard, RACQUEL) diphenhydrAMINE (BENADRYL) tab/cap 25 mg 25 mg, oral, 4 times daily PRN, itching, allergies, Starting on Wed04/26/19 at 1602 famotidine (PEPCID) tablet 20 mg 20 mg, oral, Daily PRN, indigestion, heartburn, Starting on Wed04/26/19 at 1646, Recovery (CV), Indications: Prevention of Stress Ulcer fentaNYL (SUBLIMAZE) preservative free injection 25 mcg 25 mcg, intravenous, Every 15 min PRN, while on bedrest, Starting on Wed04/26/19 at 1602 heparin 1,000 unit/mL injection (CANCELED) As needed, Starting on Wed04/26/19 at 1538, Intra-Procedure (CV) 1538 (Given - Provider: Jason Faustin MD) heparin 2500 units/500 mL (5 unit/mL) in sodium chloride 0.9% (premix) parenteral solution (COMPLETED) Continuous PRN, Starting on Wed04/26/19 at 1538, Intra-Procedure (CV) 1538 (New Bag - Provider: Jason Faustin MD) heparin 5,000 units/1,000 mL (5 units/mL) in sodium chloride 0.9% (premix) (COMPLETED) Continuous PRN, Starting on Wed04/26/19 at 1538, Intra-Procedure (CV) 1538 (New Bag - Provider: ILYA Garcia) hydrALAZINE (APRESOLINE) injection 10 mg 10 mg, intravenous, Administer over 2 Minutes, Once as needed, high blood pressure, for bp greater than 160/ systolic, Starting on Wed04/26/19 at 1602, For 1 dose, Indications: hypertension ioversol (OPTIRAY 320) injection (CANCELED) As needed, Starting on Wed04/26/19 at 1600, Intra-Procedure (CV) 1600 (Given - Provider: Jason Faustin MD) lidocaine (XYLOCAINE) 10 mg/mL (1 %) injection (CANCELED) As needed, Starting on Wed04/26/19 at 1536, Intra-Procedure (CV), Indications: Administration of Local Anesthesia 1536 (Given - Provider: Shelley Hubbard, RACQUEL) midazolam (VERSED) preservative free injection 1 mg 1 mg, intravenous, Administer over 2 Minutes, As needed, anxiety, Starting on Wed04/26/19 at 1602, Indications: FOR SHEATH PULL OR WHILE ON BEDREST midazolam (VERSED) preservative free injection (CANCELED) Administer over 2 Minutes, As needed, Starting on Wed04/26/19 at 1529, Intra-Procedure (CV) 1529 (Given - Provider: Shelley Hubbard, RACQUEL)1540 (Given - Provider: Shelley Hubbard, RACQUEL) ondansetron (ZOFRAN) injection 2 mg 2 mg, intravenous, Administer over 2 Minutes, Every 8 hours PRN, nausea, vomiting, Starting on Wed04/26/19 at 1646, Recovery (CV), Indications: Nausea and Vomiting, Nausea and Vomiting phenylephrine (CAROL-SYNEPHRINE) 1 mg/10 mL (100 mcg/mL) in sodium chloride 0.9% (premix) 0.1-0.2 mg 0.1-0.2 mg, intravenous, Every 15 min PRN, symptomatic SBP less than 90. Notify physician if given., Starting on Wed04/26/19 at 1602, Phenylephrine HCl (Neosynephrine) 1 mg diluted in 10 ml NS. Give 0.1-0.2 mg (1-2 ml of diluted solution) IV PRN for symptomatic SBP less than 90. Notify physician if given. For IV push, administer over 30 seconds. ticagrelor (BRILINTA) tablet (CANCELED) As needed, Starting on Wed04/26/19 at 1556, Intra-Procedure (CV) 1556 (Given - Provider: Shelley Hubbard RN) verapamil (ISOPTIN) 2.5 mg, nitroglycerin 200 mcg in sodium chloride 0.9% 20 mL IV syringe (CANCELED) As needed, Starting on Wed04/26/19 at 1538, Intra-Procedure (CV) 1538 (Given - Provider: Jason Faustin MD) documented in this encounter Orders Medications Ordered That Levon ht Not Have Been Administered Count Last Ordered Date First Ordered Date enoxaparin (LOVENOX) syringe 40 mg 1 2018 nicotine (NICODERM CQ) 21 mg patch 24 hour 1 patch 04/27/[address] (PROTONIX) e xtended release tablet 40 mg 04/27/2019 acetaminophen (TYLENOL) tablet 650 mg aspirin enteric coated tablet 81 mg 04/26 atorvastatin (LIPITOR) tablet 80 mg 04/26 atropine injection 1 mg 04/26/2019 carvedilol (COREG) tablet 6.25 mg 019 diphenhydrAMINE (BENADRYL) tab/cap 25 mg 04/26/2019 famotidine (PEPCID) tablet 20 mg 04/26/20 19 fentaNYL (SUBLIMAZE) preserv ative free injection 25 mcg 04/26/2019 hydrALAZINE (APRESOLINE) injection 10 mg 04/26/2019 losartan (COZAAR) tablet 50 mg 1 04/26/2019 midazolam (VERSED) preservat shirley free injection 1 mg 1 04/26/2019 nitroglycerin in dextrose 5% 50 mg/250 mL (200 mcg/mL) infusion (premix) 1 04/26/2019 ondansetron (ZOFRAN) injection 2 mg 1 04/26 phenylephrine (CAROL-SYNEPHRIN E) 1 mg/10 mL (100 mcg/mL) in sodium chloride 0.9% (premix) 0.1-0.2 mg 1 04/26/2019 sodium chloride 0.9% infusion 2 04/26/2019 ticagrelor (BRILINTA) tablet 90 mg 1 2018 Lab Orders Without Results Count Last Ordered D ate First Ordered Date POCT CREATININE - DEVICE 1 04/26/2019 Nursing Count Last Ordered Date First Orde red Date FOLLOW UP WITH PROVIDER 1 04/28/2019 VERIFY INFORMED CONSENT 1 04/27/2019 NURSING COMMUNICATION 5 04/26/2019 Consult Count Last Ordered Date First Orde red Date IP CONSULT TO SOCIAL WORK 1 04/27/2019 CARDIAC REHAB EVAL AND TREAT 1 04/26/2019 IP CONSULT TO NUTRITION SERVICES 1 04/26/20 19 IV Count Last Ordered Date First Orde red Date SALINE LOCK IV 1 04/26/2019 Transfer Count Last Ordered Date First Orde red Date TRANSFER PATIENT 1 04/26/2019 CORE MEASURES Count Last Ordered Date First Ord ered Date REASON FOR NO VTE PROPHYLAXIS AT ADMISSION 1 04/26/2019 Case Request Count Last Ordered Date First Orde red Date 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
--- OUTSIDE RECORDS SUMMARY | 2024-10-22 00:15 | XMS_ITS | Encounter Summary ---
Author Organization [facility] Healthcare Address [facility] [place] [address] Care Team Providers Care Commercial Insurance Underwriter Name Role Phone Unknown, Notinfile Primary Care Provider Unavail able Reason for Visit * Reason Comments Chest Pain Encounter Details Date Type Department Care Team (Latest Contact Info) Description 04/26/2019 3:01 PM CDT - 04/28/2019 11:59 AM CDT Hospital Encounter [facility] [address] [place] [address] Rosa Elena Goode MD [address] [facility] [address] Jason Faustin MD [address] [place] [address] ACS (acute coronary syndrome) (CMS/[facility]) (Primary Dx) Discharge Disposition: Discharge to home or self care Social History Tobacco Use Types Packs/Day Years Used Date Smoking Tobacco: Every Day Cigarettes 1.5 23 Tobacco Cessation:Ready to Q uit: No; Counseling Given: No Comments:refused Alcohol Use Standard Drinks/Week Comments Not Currently 0 (1 standard drink = 0.6 oz pur e alcohol) Sex and Gender Information Value Date Recorded Sex Assigned at Not on file 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 Gender Identity Not on file Sexual Orientation Not on file documented as of this encounter Last Filed Vital Signs Vital Sign Reading Time Taken Comments Blood Pressure 149/83 04/28/2019 11:01 AM CDT Pulse 55 04/28/2019 11:23 AM CDT Temperature 36.4 ??C (97.5 ??F) 04/28/2019 1 1:01 AM CDT Respiratory Rate 20 04/28/2019 11:0 1 AM CDT Oxygen Saturation 100% 04/28/2019 11: 01 AM CDT Inhaled Oxygen Concentration - - Weight 127.1 kg (280 lb 3.3 oz) 04/28/2019 5:00 AM CDT Height 188 cm (6' 2.02 ) 04/28/2019 9:44 AM CDT Body Mass Index 35.96 04/28/2019 5:00 AM CDT documented in this encounter Discharge Diagnoses Diagnosis ST elevation (STEMI) myocardial infarction involving other coronary artery of anterior wall (HCC) - ST ELEVATION (STEMI) MYOCARDIAL INFARCTION INVOLVING OTHER CORONARY ARTERY OF ANTERIOR WALL Atherosclerotic heart disease of [place] coronary artery without angina pectoris - ATHEROSCLEROTIC HEART DISEASE OF [place] CORONARY ARTERY WITHOUT ANGINA PECTORIS Chronic total occlusion of coronary artery - CHRONIC TOTAL OCCLUSION OF CORONARY ARTERY Cigarette nicotine dependence, uncomplicated - NICOTINE DEPENDENCE, CIGARETTES, UNCOMPLICATED Right bundle-branch block - UNSPECIFIED RIGHT BUNDLE-BRANCH BLOCK documented in this encounter Discharge Summaries * Jason Faustin MD - 04/28/2019 7:31 AM CDT Inpatient Discharge Summary BRIEF OVERVIEW Admitting Provider: Jason Faustin MD Discharge Provider: Jason Faustin MD Primary Care Physician at Discharge: Notinfile Unknown None Admission Date: 04/26/2019 Discharge Date: 04/28/2019 Admission Location: [facility] Primary Discharge Diagnosis: 1. SEVERE CAD. ??Anterior STEMI. ??Last [facility] on 04/26/2019. ? EKG. ??04/26/2019. ??Mild 1 [...] abuse 3. NKDA 4. FHx:?Father had an UT at age 35 ?? Secondary Discharge Diagnosis: [...] pain. I took him emergently to the public works laborer. He had 100% acutely occluded LAD. He underwent successful stenting. His peak troponin was 2. We did an echocardiogram 1 day after his UT and his ejection fraction was normal at [...] ANGIOGRAPHY AND WITH OR WITHOUT LEFT VENTRICULOGRAM 28310 Other Procedures: See chart Pertinent Test Results: [...] Instructions Heart Healthy diet-see attached papers .Anu HOBSON, TOI, [facility] [phone] ?? follow-up in 2 weeks with me [...] Discharge Instructions Follow Up Appointment ??? [facility] will notify you of your appointment. Please contact them at [phone] if you do not receive an appointment [...] Healthy diet-see attached papers .Anu HOBSON, TOI, [facility] [phone] * Attachments The following attachments cannot be sent through Care Everywhere. 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 HCFS met with patient and provided hospital assistance application. SW met with the patient to discuss consult. Patient state no needs from social work at this time and is hopeful to discharge home tomorrow. Family at bedside. The patient lives in [place], [place]. Social Work will remain available and [...] Heart Healthy diet-see attached papers .TOI Muller, [facility] [phone] TOI Muller, [facility] * Jason Faustin MD - 04/27/2019 6:44 [...] EKG/Min 86 BPM Atrial Rate 86 BPM MI-Interval (MSEC) 162 ms QRS-Interval (MSEC) 100 ms QT-Interval (MSEC) 388 ms QTc 464 ms P [place] 45 degrees R [place] -19 degrees T [place] 14 degrees Diagnosis Normal sinus rhythm with [...] EKG/Min 75 BPM Atrial Rate 75 BPM MI-Interval (MSEC) 162 ms QRS-Interval (MSEC) 102 ms QT-Interval (MSEC) 390 ms QTc 435 ms P [place] 52 degrees R [place] -20 degrees T [place] 11 degrees Diagnosis Normal sinus rhythm with [...] EKG/Min 79 BPM Atrial Rate 79 BPM MI-Interval (MSEC) 162 ms QRS-Interval (MSEC) 112 ms QT-Interval (MSEC) 382 ms QTc 438 ms P [place] 3 degrees R [place] 47 degrees T [place] 4 degrees Diagnosis Normal sinus rhythm Incomplete [...] ?? 1. SEVERE CAD. Anterior STEMI. Last [facility] on 04/26/2019. ? EKG. ??04/26/2019. ??Mild 1 [...] abuse 3. NKDA 4. FHx:?Father had an UT at age 35 Recommendations: ?? echocardiogram today ?? Possible transfer to [address] [place] [address] plan discussed with the patient. Jason Faustin [...] his truck. 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 He had severe 7/10 chest pain. It [...] drug allergies Family History Father had an UT at age 35 Social History Social History [...] file Gets together: Not on file Attends judaism service: Not on file Active member of [...] EKG/Min 86 BPM Atrial Rate 86 BPM MI-Interval (MSEC) 162 ms QRS-Interval (MSEC) 100 ms QT-Interval (MSEC) 388 ms QTc 464 ms P [place] 45 degrees R [place] -19 degrees T [place] 14 degrees Diagnosis Normal sinus rhythm with sinus arrhythmia Incomplete right bundle branch block Septal infarct , age undetermined Abnormal ECG No previous ECGs available Confirmed by Gwyn MENDEZ, SURINDER Brewer (9) on 04/26/2019 4:02:17 PM ECG 12 lead Collection Time: 04/26/19 3:07 PM Result Value Ref Range Systolic Blood Pressure 144 mmHg Diastolic Blood Pressure 96 mmHg Ventricular Rate EKG/Min 75 BPM Atrial Rate 75 BPM MI-Interval (MSEC) 162 ms QRS-Interval (MSEC) 102 ms QT-Interval (MSEC) 390 ms QTc 435 ms P [place] 52 degrees R [place] -20 degrees T [place] 11 degrees Diagnosis Normal sinus rhythm with sinus arrhythmia Incomplete right bundle branch block Borderline ECG When compared with ECG of 26-APR-2019 15:04, No significant change was found Confirmed by Gwyn MENDEZ, SURINDER Brewer (9) on 04/26/2019 4:02:09 PM POCT creatinine [...] EKG/Min 79 BPM Atrial Rate 79 BPM MI-Interval (MSEC) 162 ms QRS-Interval (MSEC) 112 ms QT-Interval (MSEC) 382 ms QTc 438 ms P [place] 3 degrees R [place] 47 degrees T [place] 4 degrees Diagnosis Normal sinus rhythm Incomplete [...] pathology The above report was dictated at [facility] Assessment/Plan 34 y.o. male seen for anterolateral ST elevation UT. 1. Anterior STEMI. ?? EKG. 04/26/2019. Mild [address] elevations in the anterolateral leads. Normal sinus rhythm. 2. Tobacco abuse 3. NKDA 4. FHx: Father had an UT at age 35 PLAN: Emergency left heart catheterization. Care plan discussed with the patient. Jason Faustin MD 04/27/2019 6:24 AM documented in this encounter ED Notes * Rosa Elena Goode MD - 04/26/2019 3:14 PM CDT EMERGENCY PHYSICIAN NOTE VISIT DATE: 04/26/19 TRIAGE TIME: 1501 ROOM: [facility] EMERGENCY DEPARTMENT ED03/ED03 NAME: Jose Guardado AGE: [...] file Gets together: Not on file Attends judaism service: Not on file Active member of [...] 2 ) Weight: 127 kg (280 lb) Greer body weight: 82.2 kg (181 lb 3.5 [...] 1514 Comment: Dr Faustin at the bedside. manager labor delivery preparing. By: Rosa Elena Goode MD Time: 04/26 1516 Comment: ECG (Interpreted by wy, CPT 28090): Normal sinus rhythm with a heart rate of 86. Left axisdeviation. ST segment depression in the inferior leads with subtle elevation in the precordial leads in the setting of an incomplete right bundle branch block. This not diagnostic for STEMI. No priorEKG for comparison. ECG (Interpreted by wy, CPT 54665): Repeat EKG of 1507 S similar with [...] syndrome so he is going to the public works laborer now By: Rosa Elena Goode MD Medications Given in ED: Medications nitroglycerin in dextrose 5% 50 mg/250 mL (200 mcg/mL) infusion (premix) (10 mcg/min intravenous New Bag 04/26/19 1513) sodium chloride 0.9% infusion (has no administration in time range) CLINICAL IMPRESSION Final diagnoses: ACS (acute coronary syndrome) ([facility]) DISPOSITION To Factory Machine Computer Operator. Critical Care Performed by: ROSA ELENA GOODE [...] separately billable procedures. Prince Gilbert MD MPH [facility] (Note that portions of this note may have been completed with voice recognition software. 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 No heart hx. No home meds. * Yesi Zaidi RN - 04/26/2019 3:01 PM CDT Bed: ED03 Expected date: 04/26/19 Expected time: 3:06 PM Means of arrival: Comments: [place] Yesi Zaidi RN 04/26/19 1501 documented in this encounter Miscellaneous [...] CDT) Magnesium 2.1 1.6 - 2.6 mg/dL [facility] ([place]) Blood specimen (specimen) 04/28/2019 4:10 AM CDT 04/28/2019 4:25 AM CDT us Jason Faustin MD LAB BLOOD ORDERABLES Ayse l Result [facility] [address] [place] [address] * TRANSTHORACIC ECHO (TTE) COMPLETE W DOPPLER/CF WO CONTRAST (04/27/2019 4:22 PM CDT) Anatomical Region Laterality Modality Other 04/27/2019 3:26 PM CDT Narrative 04/28/2019 6:54 AM CDT ?[facility] ?[address] ?[place] [address] ?Echocardiology and Vascular Laboratory Name: ??JOSE GUARDADO ?Gender: M ?Referring Physician:UNKNOWN, UNKNOWN : 1985 ? Coil Inspector: ?? Margaret Cartagena ?Ordering Physician:JASON FAUSTIN MD ? (ttran) Exam Date: 04/27/2019 15:26 ? MR #: ?[id number] ? cc:Physician Point of Origin:S2 ICU ? [...] Procedure Note Bryant Sandoval MD - 04/28/[address] [address] Echocardiology and Vascular Laboratory Name: JOSE GUARDADO Gender: MReferring Physician:UNKNOWN, UNKNOWN : 1985 Coil Inspector: Margaret VestalOrdering Physician:JASON FAUSTIN MD (ttran) Exam Date: 04/27/2019 15:26 MR #: [id number]:Physician Point of Origin:S2 ICUAccount #: [id number] Procedure CPT: ICD Codes: Clinical Indications: Chest [...] (Electronically Signed) Final Date:28 April 2019 06:54 Jason Faustin MD CV ECHO PROCEDURES Final Result * ECG 12 lead (04/27/2019 6:50 AM CDT) Pathologist [facility] Ventricular Rate EKG/Min 64 BPM [facility] Atrial Rate 64 BPM [facility] MI-Interval (MSEC) 158 ms [facility] QRS-Interval (MSEC) 104 ms [facility] QT-Interval (MSEC) 438 ms [facility] QTc 451 ms [facility] P [place] 42 degrees [facility] R [place] 22 degrees [facility] T [place] 20 degrees [facility] Diagnosis Normal sinus rhythm Septal infarct (cited on or before 26-APR-2019) Abnormal ECG When compared with ECG of 26-APR-2019 16:38, Incomplete right bundle branch block is no longer Present Borderline criteria for Inferior infarct are no longer Present Confirmed by Gwyn MENDEZ, SURINDER Brewer (9) on 04/27/2019 9:49:32 AM [facility] 04/27/2019 6:50 AM CDT 04/27/2019 9:49 AM CDT Jason Faustin MD ECG ORDERABLES Final Res ult [facility] * T4, free (04/27/2019 4:58 AM CDT) Pathologist [facility] Free T4 0.92 0.90 - 1.70 ng/dL [facility] ([place]) Blood specimen (specimen) 04/27/2019 4:58 AM CDT 04/27/2019 7:26 AM CDT Jason Faustin MD LAB BLOOD ORDERABLES Ayse l Result Performing Organization Address [facility] Co de Phone Number [facility] ([place]) [address] [facility] [place] [address] * TSH (04/27/2019 4:58 AM CDT) Thyroid Stimulating Hormone 1.59 0.30 - 4.20 mcIUnit/mL [facility] ([place]) Blood specimen (specimen) 04/27/2019 4:58 AM CDT 04/27/2019 7:26 AM CDT Jason Faustin MD LAB BLOOD ORDERABLES Ayse l Result Performing Organization Address [facility] de Phone Number [facility] ([place]) [address] [facility] [place] [address] * (ABNORMAL) Lipid panel (04/27/2019 4:58 AM CDT) Cholesterol 228(H) 30 - 199 mg/dL [facility] ([place]) Comment: Interpretive Data Ages < or [...] revised on 2018. Triglycerides 291(H) <=149 mg/dL [facility] ([place]) Comment: Interpretive Data Ages < or [...] on 2018. HDL 32(L) >=40 mg/dL [facility] ([place]) Comment: Interpretive Data Ages < or [...] 2018. LDL, calculated 138(H) <=129 mg/dL [facility] [place]) Comment: Interpretive Data Ages [...] revised on 2018. Non-HDL Cholesterol 196 mg/dL [facility] ([place]) Comment: Interpretive Data Ages < or [...] on 2018. Chol/HDL ratio 7 TO Brambila [facility] ([place]) Blood specimen (specimen) 04/27/2019 4:58 AM CDT 04/27/2019 7:26 AM CDT us Jason Faustin MD LAB BLOOD ORDERABLES Ayse emerson Result [facility] ([place]) [address] [place] [address] * eGFR (04/27/2019 4:58 AM CDT) eGFR >90 mL/min/1.[address] [facility] [place]) Comment: Interpretive Data Reference Interval Normal ?>/= 90 mL/min/1.73m2 Mildly decreased* ? 60 - 89 mL/min/1.73m2 Mildly to moderately decreased ?45 - 59 mL/min/1.73m2 Moderately to severely decreased ??30 - 44 mL/min/1.73m2 Severely decreased ?15 - 29 mL/min/1.73m2 Kidney Failure ?< 15 ??mL/min/1.73m2 *Relative to young adult level If -Maltese multiply value by 1.16. Estimated glomerular filtration [...] MD LAB BLOOD ORDERABLES Ayse emerson Result [facility] ([place]) [address] [facility] [facility] [place] [address] * (ABNORMAL) Differential, auto (04/27/2019 4:58 AM CDT) Neutrophil abs 6.4 1.7 - 6.5 K/cumm [facility] ([place]) Imm gran abs 0.0 0.0 - 0.1 K/cumm [facility] ([place]) Lymphocyte abs 2.3 0.8 - 3.3 K/cumm [facility] ([place]) Monocyte abs 0.9(H) 0.2 - 0.8 K/cumm [facility] ([place]) Eosinophil abs 0.2 0.0 - 0.5 K/cumm [facility] ([place]) Basophil abs 0.1 0.0 - 0.1 K/cumm [facility] ([place]) Neutrophil pct 64.9 % [facility] ([place]) Comment: Interpretive Data Percent cell count reference ranges are not reported, since discordance with absolute values may lead to misinterpretation of CBC data. Current Interpretive Data was last revised on 2018. Imm gran pct 0.4 % [facility] ([place]) Comment: Interpretive Data Percent cell count reference ranges are not reported, since discordance with absolute values may lead to misinterpretation of CBC data. Current Interpretive Data was last revised on 2018. Lymphocyte pct 23.1 % [facility] ([place]) Comment: Interpretive Data Percent cell count reference ranges are not reported, since discordance with absolute values may lead to misinterpretation of CBC data. Current Interpretive Data was last revised on 2018. Monocyte pct 9.5 % [facility] ([place]) Comment: Interpretive Data Percent cell count reference ranges are not reported, since discordance with absolute values may lead to misinterpretation of CBC data. Current Interpretive Data was last revised on 2018. Eosinophil pct 1.5 % [facility] ([place]) Comment: Interpretive Data Percent cell count reference ranges are not reported, since discordance with absolute values may lead to misinterpretation of CBC data. Current Interpretive Data was last revised on 2018. Basophil pct 0.6 % [facility] ([place]) Comment: Interpretive Data Percent cell count reference ranges are not reported, since discordance with absolute values may lead to misinterpretation of CBC data. Current Interpretive Data was last revised on 2018. Blood specimen (specimen) 04/27/2019 4:58 AM CDT 04/27/2019 5:04 AM CDT us Jason Faustin MD LAB BLOOD ORDERABLES Ayse emerson Result [facility] ([place]) [address] [facility] [place] [place] [address] * Magnesium (04/27/2019 4:58 AM CDT) Pathologist [facility] Magnesium 2.0 1.6 - 2.6 mg/dL [facility] ([place]) Blood specimen (specimen) 04/27/2019 4:58 AM CDT 04/27/2019 5:04 AM CDT Jason Faustin MD LAB BLOOD ORDERABLES Ayse l Result [facility] ([place]) [address] [facility] of [employer]access [place], [place] [address] * CBC with auto differential (04/27/2019 4:58 AM CDT) Pathologist [facility] WBC 9.9 3.8 - 9.9 K/cumm [facility] ([place]) Hgb 14.3 13.0 - 17.5 g/dL [facility] ([place]) Hct 40.8 38.9 - 50.3 % [facility] ([place]) Plt 168 150 - 400 K/cumm [facility] ([place]) MPV 11.4 9.1 - 12.3 fL [facility] ([place]) RBC 4.43 4.30 - 5.80 M/cumm [facility] ([place]) MCV 92.1 81.3 - 96.4 fL [facility] ([place]) MCH 32.3 27.1 - 33.3 pg [facility] ([place]) MCHC 35.0 32.3 - 35.7 g/dL [facility] RDW CV 12.5 11.1 - 14.9 % [facility] ([place]) RDW SD 42.1 35.7 - 48.1 fL [facility] ([place]) NRBC abs 0.00 0.00 - 0.01 K/cumm [facility] ([place]) Blood specimen (specimen) 04/27/2019 4:58 AM CDT 04/27/2019 5:04 AM CDT Narrative [facility] ([place]) - 04/27/2019 5:25 AM CDT Am after procedure us Jason Faustin MD LAB BLOOD ORDERABLES Ayse emerson Result [facility] ([place]) [address] [facility] [place] [address] * (ABNORMAL) Comprehensive metabolic panel (04/27/2019 4:58 [...] ORDERABLES Ayse l Result Performing Organization Address [facility] Co de Phone Number [facility] ([place]) [address] [facility] [place] [address] * (ABNORMAL) Troponin T (04/27/2019 4:58 AM CDT) Troponin T 2.05(H) 0.00 - 0.01 ng/mL [facility] ([place]) Comment: Interpretive Data Reference ranges for children <18 years of age have not been established. - > or = 18 years: Serial determinations are recommended for the diagnosis of myocardial infarction. ??Temporal rise and fall are consistent with myocardial infarction when at least one value is above the 99th percentile upper reference limit for troponin assay. ??Journal of the [place] College [employer]iology 2012;60:1581-98. Current Interpretive Data Last Revised Date: 2018. Blood specimen (specimen) 04/27/2019 4:58 AM CDT 04/27/2019 5:04 AM CDT Jason Faustin MD LAB BLOOD ORDERABLES Edit ed Result - Final Performing Organization Address [facility] Co de Phone Number [facility] ([place]) [address] [facility] [place] [address] * (ABNORMAL) Troponin T (04/26/2019 7:23 PM CDT) Troponin T 0.87(H) 0.00 - 0.01 ng/mL [facility] ([place]) Comment: Interpretive Data Reference ranges for children <18 years of age have not been established. - > or = 18 years: Serial determinations are recommended for the diagnosis of myocardial infarction. ??Temporal rise and fall are consistent with myocardial infarction when at least one value is above the 99th percentile upper reference limit for troponin assay. ??Journal of the [place] College of Cardiology 2012;60:1581-98. Current Interpretive Data Last Revised Date: 2018. Blood specimen (specimen) 04/26/2019 7:23 PM CDT 04/26/2019 8:23 PM CDT us Jason Faustin MD LAB BLOOD ORDERABLES Ayse l Result Performing Organization Address [facility]/ZIP Co de Phone Number [facility] [place]) [address] [facility] of ip[employer]access [place], [place] [address] * ECG 12 lead (04/26/2019 4:38 PM CDT) [facility] Ventricular Rate EKG/Min [address] [facility] Atrial Rate 79 BPM [facility] MI-Interval (MSEC) 162 ms [facility] QRS-Interval (MSEC) 112 ms [facility] QT-Interval (MSEC) 382 ms [facility] QTc 438 ms [facility] P [place] 3 degrees [facility] R [place] 47 degrees [facility] T [place] 4 degrees [facility] Diagnosis Normal sinus rhythm Incomplete right bundle [...] SURINDER Brewer (9) on 04/26/2019 5:56:20 PM [facility] 04/26/2019 4:38 PM CDT 04/26/2019 5:56 PM CDT Jason Faustin MD ECG ORDERABLES Final Res ult Performing Organization Address City/[facility]/ZIP Co de Phone Number [facility] [employer] [facility] * LEFT HEART CATHETERIZATION WITH CORONARY ANGIOGRAPHY [...] verified prior to the procedure by the molder setter, the nurse and the technologist in the public works laborer. Pre-procedure physical examination revealed no contraindications to [...] a modified Seldinger technique and a 6 Macanese slender sheath was put in place. ??He was anticoagulated using Angiomax. ??I cannulated the ostium of the left main using a 6 Macanese EBU 3.5 guide catheter. ??I wired the [...] with aspirin Brilinta prior to leaving the public works laborer. MEASUREMENTS See attached hemodynamic data in procedure log report. Complications No immediate complications. Impression Total anesthesia time with continuous face to face monitoring was from 1533 to 1558 Access Site: ??The right radial artery was used for access with a 6 Macanese sheath. Hemodynamic/Pressures: The left ventricular end diastolic [...] 2. 1. SEVERE CAD. ??Anterior STEMI. ??Last [facility] on 04/26/2019. ? EKG. ??04/26/2019. ??Mild 1 [...] 3. NKDA 4. FHx: ??Father had an UT at age 35 Recommendations ?? Optimal medical therapy ?? Admit to the ICU ?? Start aspirin, Brilinta, Coreg, losartan, Lipitor ?? Echocardiogram ?? Nicotine patch ?? Strongly recommend that the patient quit smoking Signed by: Jason Faustin MD . us Jason Faustin MD CV CARDIAC CATH PROCEDURE S [...] 2018. Eosinophil pct 1.4 % [facility] ([place]) Comment: Interpretive Data Percent cell count reference ranges are not reported, since discordance with absolute values may lead to misinterpretation of CBC data. Current Interpretive Data was last revised on 2018. Basophil pct 0.7 % [facility] ([place]) Comment: Interpretive Data Percent cell count reference ranges are not reported, since discordance with absolute values may lead to misinterpretation of CBC data. Current Interpretive Data was last revised on 2018. Blood specimen (specimen) 04/26/2019 3:38 PM CDT 04/26/2019 3:41 PM CDT Jason Faustin MD LAB BLOOD ORDERABLES Ayse emerson Result [facility] ([place]) [address] [facility] [place] [address] * CBC with auto differential (04/26/2019 3:38 PM CDT) WBC 7.3 3.8 - 9.9 K/cumm [facility] ([place]) Hgb 14.4 13.0 - 17.5 g/dL [facility] ([place]) Hct 40.7 38.9 - 50.3 % [facility] Plt 150 150 - 400 K/cumm [facility] ([place]) MPV 11.1 9.1 - 12.3 fL [facility] ([place]) RBC 4.46 4.30 - 5.80 M/cumm [facility] MCV 91.3 81.3 - 96.4 fL [facility] ([place]) MCH 32.3 27.1 - 33.[address] [facility] MCHC 35.4 32.3 - 35.7 g/dL [facility] RDW CV 12.2 11.1 - 14.9 % [facility] RDW SD 40.6 35.7 - 48.1 fL [facility] ([place]) NRBC abs 0.00 0.00 - 0.01 K/cumm [facility] ([place]) Blood specimen (specimen) 04/26/2019 3:38 PM CDT 04/26/2019 3:41 PM CDT Jason Faustin MD LAB BLOOD ORDERABLES Ayse l Result [facility]) [address] [facility] [place] [address] * XR Chest 1 Vw Portable (04/26/2019 3:20 PM CDT) Anatomical Region Laterality Modality Body, Chest N/A Computed Radiogr aphy 04/26/2019 3:29 PM CDT Impressions 04/26/2019 3:33 PM CDT No acute pathology The above report was dictated at [facility] Narrative 04/26/2019 3:33 PM CDT EXAM DESCRIPTION: [...] pathology The above report was dictated at [facility] Rosa Elena Goode MD IMG XR PROCED URES Final Result * POCT creatinine (04/26/2019 3:13 PM CDT) Creatinine POC 1.2 0.4 - 1.2 mg/dL [facility] ([place]) Blood specimen (specimen) 04/26/2019 3:13 PM CDT 04/26/2019 3:13 PM CDT us Notinfile Unknown LAB POCT ORDERABLES - DEVICE F inal Result [facility] [place]) [address] [facility] [place] [address] * ECG 12 lead (04/26/2019 3:07 PM CDT) Systolic Blood Pressure 144 mmHg [facility] Diastolic Blood Pressure 96 mmHg [facility] Ventricular Rate EKG/Min 75 BPM [facility] Atrial Rate 75 BPM [facility] MI-Interval (MSEC) 162 ms [facility] QRS-Interval (MSEC) 102 ms [facility] QT-Interval (MSEC) 390 ms [facility] QTc 435 ms [facility] P [place] 52 degrees [facility] R [place] -20 degrees [facility] T [place] 11 degrees [facility] Diagnosis Normal sinus rhythm with sinus arrhythmia Incomplete right bundle branch block Borderline ECG When compared with ECG of 26-APR-2019 15:04, No significant change was found Confirmed by Gwyn MENDEZ, SURINDER Brewer (9) on 04/26/2019 4:02:09 PM [facility] 04/26/2019 3:07 PM CDT 04/26/2019 4:02 PM CDT us Rosa Elena Goode MD ECG ORDERABLE S Final Result [facility] * ECG 12 lead (04/26/2019 3:04 PM CDT) Systolic Blood Pressure 144 mmHg [facility] Diastolic Blood Pressure 96 mmHg [facility] Ventricular Rate EKG/Min 86 BPM [facility] Atrial Rate 86 BPM [facility] MI-Interval (MSEC) 162 ms [facility] QRS-Interval (MSEC) 100 ms [facility] QT-Interval (MSEC) 388 ms [facility] QTc 464 ms [facility] P [place] 45 degrees [facility] R [place] -19 degrees [facility] T [place] 14 degrees [facility] Diagnosis Normal sinus rhythm with sinus arrhythmia Incomplete right bundle branch block Septal infarct , age undetermined Abnormal ECG No previous ECGs available Confirmed by Gwyn MENDEZ DAN L. (9) on 04/26/2019 4:02:17 PM [facility] 04/26/2019 3:04 PM CDT 04/26/2019 4:02 PM CDT Rosa Elena Goode MD ECG ORDERABLE S Final Result [facility] * eGFR (04/26/2019 3:04 PM CDT) eGFR 76 mL/min/1.7 3 m2 [facility] ([place]) Comment: Interpretive Data Reference Interval Normal ?>/= 90 mL/min/1.73m2 Mildly decreased* ? 60 - 89 mL/min/1.73m2 Mildly to moderately decreased ?45 - 59 mL/min/1.73m2 Moderately to severely decreased ??30 - 44 mL/min/1.73m2 Severely decreased ?15 - 29 mL/min/1.73m2 Kidney Failure ?< 15 ??mL/min/1.73m2 *Relative to young adult level If -Maltese multiply value by 1.16. Estimated glomerular filtration [...] Rico Adame MD LAB BLOOD ORDERABLES Ayse emerson Result [facility] ([place]) [address] [facility] [place] [address] * Differential, auto (04/26/2019 3:04 PM CDT) Neutrophil abs 3.2 1.7 - 6.5 K/cumm [facility] ([place]) Imm gran abs 0.0 0.0 - 0.1 K/cumm [facility] ([place]) Lymphocyte abs 2.0 0.8 - 3.3 K/cumm [facility] ([place]) Monocyte abs 0.5 0.2 - 0.8 K/cumm [facility] ([place]) Eosinophil abs 0.1 0.0 - 0.5 K/cumm [facility] ([place]) Basophil abs 0.0 0.0 - 0.1 K/cumm [facility] ([place]) Neutrophil pct 53.9 % [facility] Comment: Interpretive Data Percent cell count reference ranges are not reported, since discordance with absolute values may lead to misinterpretation of CBC data. Current Interpretive Data was last revised on 2018. Imm gran pct 0.7 % [facility] ([place]) Comment: Interpretive Data Percent cell count reference ranges are not reported, since discordance with absolute values may lead to misinterpretation of CBC data. Current Interpretive Data was last revised on 2018. Lymphocyte pct 33.9 % [facility] ([place]) Comment: Interpretive Data Percent cell count reference ranges are not reported, since discordance with absolute values may lead to misinterpretation of CBC data. Current Interpretive Data was last revised on 2018. Monocyte pct 8.5 % [facility] ([place]) Comment: Interpretive Data Percent cell count reference ranges are not reported, since discordance with absolute values may lead to misinterpretation of CBC data. Current Interpretive Data was last revised on 2018. Eosinophil pct 2.2 % [facility] ([place]) Comment: Interpretive Data Percent cell count reference ranges are not reported, since discordance with absolute values may lead to misinterpretation of CBC data. Current Interpretive Data was last revised on 2018. Basophil pct 0.8 % [facility] ([place]) Comment: Interpretive Data Percent cell count reference ranges are not reported, since discordance with absolute values may lead to misinterpretation of CBC data. Current Interpretive Data was last revised on 2018. Blood specimen (specimen) 04/26/2019 3:04 PM CDT 04/26/2019 3:08 PM CDT Rico Adame MD LAB BLOOD ORDERABLES Ayse l Result Performing Organization Address City/[facility] Co de Phone Number [facility] ([place]) [address] [facility] [employer] [place] [phone] * Troponin T (04/26/2019 3:04 PM CDT) Troponin T <0.01 0.00 - 0.01 ng/mL [facility] ([place]) Comment: Interpretive Data Reference ranges for children <18 years of age have not been established. - > or = 18 years: Serial determinations are recommended for the diagnosis of myocardial infarction. ??Temporal rise and fall are consistent with myocardial infarction when at least one value is above the 99th percentile upper reference limit for troponin assay. ??Journal of the [place] [employer] 2012;60:1581-98. Current Interpretive Data Last Revised Date: 2018. Blood specimen (specimen) 04/26/2019 3:04 PM CDT 04/26/2019 3:08 PM CDT Rosa Elena Goode MD LAB BLOOD ORD ERABLES Final Result Performing Organization Address [facility] Co de Phone Number [facility] ([place]) [address] [facility] [place] [address] * (ABNORMAL) Comprehensive metabolic panel (04/26/2019 3:04 PM CDT) Sodium 138 135 - 145 mmol/L [facility] ([place]) Potassium, pl 3.9 3.3 - 4.9 [...] MD LAB BLOOD ORD ERABLES Final Result [facility] ([place]) [address] [facility] Department [place] [address] * CBC with auto differential (04/26/2019 3:04 PM CDT) WBC 6.0 3.8 - 9.9 K/cumm [facility] ([place]) Hgb 15.4 13.0 - 17.5 g/dL [facility] ([place]) Hct 44.1 38.9 - 50.3 % [facility] ([place]) Plt 174 150 - 400 K/cumm [facility] MPV 11.1 9.1 - 12.3 fL [facility] ([place]) RBC 4.78 4.30 - 5.80 M/cumm [facility] MCV 92.3 81.3 - 96.4 fL [facility] ([place]) MCH 32.2 27.1 - 33.3 pg [facility] ([place]) MCHC 34.9 32.3 - 35.7 g/dL [facility] ([place]) RDW CV 12.2 11.1 - 14.9 % [facility] RDW SD 41.3 35.7 - 48.[address] [facility]) NRBC abs 0.00 0.00 - 0.01 K/cumm [facility]) Blood specimen (specimen) 04/26/2019 3:04 PM CDT 04/26/2019 3:08 PM CDT Rosa Elena Goode MD LAB BLOOD ORD ERABLES Final Result [facility] ([place]) [address] [place] Department of Laboratories [place], [place] [id number] documented in this encounter Visit Diagnoses Diagnosis ACS (acute coronary syndrome) (CMS/HCC) (HCC)- Primary Intermediate coronary syndrome documented in this encounter Administered Medications Inactive Administered [...] Starting on Wed04/26/19 at 1602, Indications: SYMPTOMATIC BRADYCARDIAIndications:SYMPTOMATIC BRADYCARDIA carvedilol (COREG) tablet 6.25 mg 6.25 mg, oral, 2 times daily, First dose on Wed04/26/19 at 2100, Recovery (CV), Hold for SBP < 100 or HR < 60., Indications: cardiovascular diseaseIndications:cardiovascular disease Given 04/28/2019 9:07 AM CDT 6. 25 mg Given 04/27/2019 8:20 PM CDT 6.25 mg Given 04/27/2019 9:01 AM CDT 6.25 mg diphenhydrAMINE (BENADRYL) tab/cap 25 mg 25 mg, oral, 4 times daily PRN, itching, allergies, Starting on Wed04/26/19 at 1602 enoxaparin (LOVENOX) syringe 40 mg 40 mg, subcutaneous, Daily (for enoxaparin), First dose on Wed04/27/19 at 2100, Indications: Deep Vein Thrombosis PreventionIndications:Deep [...] on bedrest, Starting on Wed04/26/19 at 1602 hydrALAZINE (APRESOLINE) injection 10 mg 10 mg, intravenous, Administer over 2 Minutes, Once as needed, high blood pressure, for bp greater than 160/ systolic, Starting on Wed04/26/19 at 1602, For 1 dose, Indications: hypertensionIndications:hyperten maegan losartan (COZAAR) tablet 50 mg 50 mg, oral, Daily, First dose on Wed04/26/19 at 1730, Recovery (CV), HOLD and notify MD if SBP less than 90 mmHg., Indications: cardiovascular diseaseIndications:cardiovascula r disease Given 04/28/2019 9:08 AM CDT 50 mg Given 04/27/2019 9:01 AM CDT 50 mg Given 04/26/2019 6:05 PM CDT 50 mg midazolam (VERSED) preservative free injection 1 mg 1 mg, intravenous, Administer over 2 Minutes, As needed, anxiety, Starting on Wed04/26/19 at 1602, Indications: FOR SHEATH PULL OR WHILE ON BEDRESTIndications:FOR SHEATH PULL OR WHILE ON BEDREST nicotine (NICODERM CQ) 21 mg patch 24 hour 1 patch 1 patch, transdermal, Administer over 24 Hours, Daily, First dose on Jeni 04/27/19 at 0900 nitroglycerin in dextrose 5% 50 mg/250 mL (200 mcg/mL) infusion (premix) - ADS Override Pull Starting on Wed04/26/19 at 1507, For 1 dose, KAI EDWARDS: cabinet override nitroglycerin in dextrose 5% 50 mg/250 mL [...] 3:16 PM CDT 30 mL/hr 30 mL/hr sodium chloride 0.9% infusion 150 mL/hr, intravenous, Continuous, Starting on Wed04/26/19 at 1645, For 10 hours Rate/Dose Verify 04/26/2019 8:00 PM CDT 150 mL/hr 150 mL/hr New Bag 04/26/2019 4:31 PM CDT 150 mL/hr 150 mL/hr ticagrelor (BRILINTA) tablet 90 mg 90 mg, oral, 2 times daily, First dose on Wed04/26/19 at 2100, Recovery (CV), Indications: cardiovascular diseaseIndications:cardiovascular disease Given 04/28/2019 9:07 AM CDT 90 mg Given 04/27/2019 8:20 PM CDT 90 mg Given 04/27/2019 9:01 AM CDT 90 mg documented in this encounter Discontinued Medications Medication [...] Radha Julien RN) 906 (Given - Provider: aBrby Salazar, RACQUEL) atorvastatin (LIPITOR) tablet 80 mg [...] RACQUEL)2019 (Given - Provider: Kayleigh Allan, RACQUEL) 09 (Given - Provider: Barby Salazar, RACQUEL) enoxaparin [...] less than 90 mmHg., Indications: cardiovascular disease 180 (Given - Provider: Any Agarwal RN) 09 (Given - Provider: Radha Julien RN) 09 (Given - Provider: Barby Salazar, RACQUEL) nicotine (NICODERM CQ) 21 mg patch 24 hour 1 patch 1 patch, transdermal, Administer over 24 Hours, Daily, First dose on Wed04/27/19 at 0900 0906 (Not Given - Provider: Radha Julien RN - Reason: Patient/family refused) 09 (Not Given - Provider: Barby Salazar, RACQUEL - Reason: Patient/family refused) pantoprazole DR (PROTONIX) extended release tablet 40 mg 40 mg, oral, Daily before breakfast, First dose on Wed04/27/19 at 0730, Do not crush, chew, cut, dissolve, open or otherwise manipulate tablet/capsule., Indications: Stress Ulcer Prophylaxis 900 (Given - Provider: Radha Julien RN) 09 (Given - Provider: Barby Salazar, RACQUEL) ticagrelor (BRILINTA) tablet 90 mg 90 mg, oral, 2 times daily, First dose on Wed04/26/19 at 2100, Recovery (CV), Indications: cardiovascular disease 2022 (Given - Provider: Kitty Esparza RN) 09 (Given - Provider: Radha Julien RN)2019 (Given - Provider: Kayleigh Allan RN) 09 (Given - Provider: Barby Salazar, RACQUEL) Continuous Medication Order 04/26/2019 04/27/2019 04/28/2019 nitroglycerin in dextrose 5% 50 mg/250 mL (200 mcg/mL) infusion (premix) 5-400 mcg/min (1.5-120 mL/hr), 0.2 mg/mL, intravenous, Titrated, Starting on Wed04/26/19 at 1507, Until Wed04/28/19 at 1600, Initial rate: 10 mcg/min, Titrate: Up/Down, Titrate by: 10 mcg/min, Every: 5 minutes, Goal: Chest pain, STAT 1513 (New Bag - Provider: Yesi Zaidi RN)1522 (Continue to Inpatient Floor - Provider: Yesi Zaidi RN - Comment: Continued to CCL) sodium chloride 0.9% infusion 30 mL/hr, intravenous, Continuous, Starting on Wed04/26/19 at 1515 1516 (New Bag - Provider: Yesi Zaidi RN - Comment: carrier fluid for nitro)1522 (Continue to Inpatient Floor - Provider: Yesi Zaidi RN - Comment: Continued to CCL)1532 (Rate/Dose Change - Provider: Derek Page) sodium chloride 0.9% infusion () 150 mL/hr, intravenous, Continuous, Starting on Wed04/26/19 at 1645, For 10 hours 1631 (New Bag - Provider: Any Agarwal RN)2000 (Rate/Dose Verify - Provider: Kitty Esparza, RACQUEL) 0205 (Stopped - Provider: Kitty Esparza RN) PRN Medication Order 04/26/2019 04/27/2019 04/28/2019 acetaminophen [...] Local Anesthesia 1536 (Given - Provider: Shelley Hubbard RN) midazolam (VERSED) preservative free injection 1 mg 1 mg, intravenous, Administer over 2 Minutes, As needed, anxiety, Starting on Wed04/26/19 at 1602, Indications: FOR SHEATH PULL OR WHILE ON BEDREST midazolam (VERSED) preservative free injection (CANCELED) Administer over 2 Minutes, As needed, Starting on Wed04/26/19 at 1529, Intra-Procedure (CV) 1529 (Given - Provider: Shelley Hubbard, RACQUEL)1540 (Given - Provider: Shelley Hubbrad, RACQUEL) ondansetron (ZOFRAN) injection 2 mg 2 [...] Count Last Ordered Date First Ordered Date nicotine (NICODERM CQ) 21 mg patch 24 hour 1 patch 1 04/27/2019 acetaminophen (TYLENOL) tablet 650 mg 1 atropine injection 1 mg 1 04/26/2019 bivalirudin (ANGIOMAX) 250 m g in sodium chloride 0.9% 50 mL infusion 1 04/26/2019 bivalirudin bolus 5 mg/mL 04/26/2019 diphenhydrAMINE (BENADRYL) tab/cap 25 mg 04/26/2019 famotidine (PEPCID) tablet 20 mg 04/26/20 fentaNYL (SUBLIMAZE) preserv ative free injection 25 mcg 1 04/26/2019 heparin 1,000 unit/mL injection 1 9 heparin 2500 units/500 mL (5 unit/mL) in sodium chloride 0.9% (premix) parenteral solution 04/26/2019 heparin 5,000 units/1,000 mL (5 units/mL) in sodium chloride 0.9% (premix) 04/26/2019 hydrALAZINE (APRESOLINE) injection 10 mg 04/26/2019 ioversol (OPTIRAY 320) injection 04/26/20 lidocaine (XYLOCAINE) 10 mg/ mL (1 %) injection 04/26/2019 midazolam (VERSED) preservat shirley free injection 04/26/2019 midazolam (VERSED) preservat shirley free injection 1 mg 04/26/2019 ondansetron (ZOFRAN) injection 2 mg 04/26 phenylephrine (CAROL-SYNEPHRIN E) 1 mg/10 mL (100 mcg/mL) in sodium chloride 0.9% (premix) 0.1-0.2 mg 1 04/26/2019 ticagrelor (BRILINTA) tablet 1 04/26/2019 verapamil (ISOPTIN) 2.5 mg, nitroglycerin 200 mcg in sodium chloride 0.9% 20 mL IV syringe 1 04/26/2019 Lab Orders Without Results Count Last Ordered D ate First Ordered Date POCT CREATININE - DEVICE 1 04/26/2019 Nursing Count Last Ordered Date First Orde red Date FOLLOW UP WITH PROVIDER 04/28/2019 VERIFY INFORMED CONSENT 04/27/2019 NURSING COMMUNICATION 5 04/26/2019 Consult Count [...] Date First Orde red Date CASE REQUEST DIGITAL SALES REPRESENTATIVE 04/26/2019 ADT Patient Update Count Last Ordered Date Firs t Ordered Date ED IP DECISION TO ADMIT 04/26/2019 documented in this encounter Care Teams Commercial Insurance Underwriter Relationship Specialty Start Date End Date Unknown, Notinfile PCP - General 04/26/19 documented as of this encounter
--- OUTSIDE RECORDS SUMMARY | 2024-10-22 00:15 | XMS_ITS | Clinical Summary ---
Author Organization [facility] Address [address] [place] [address]. [place] [address] Care Team Providers Care Turn Operator Name Role Phone Rekha Schneider MD Primary Care Provider Social History Tobacco Use Types Packs/Day Years Used Date Smoking Tobacco: Never Assessed Sex and Gender Information Value Date Recorded Sex Assigned at Not on file Legal Sex Male 8:27 PM CDT Gender Identity Not on file Sexual Orientation Not on file Plan of Treatment Health Maintenance Due Date Last Done Comments Annual Physical 01/16/1987 Hepatitis C 01/16/2002 DTaP, Tdap and Td Vaccines ( 1 - Tdap) 01/16/2003 Hepatitis B Vaccines (1 of 3 - 19+ 3-dose series) 01/16/2003 COVID-19 Vaccine (2023-2 5 season) 2024 Influenza Adult (#1) 2024 HPV Vaccines Aged Out No longer eligi ble based on patient's age to complete this topic Meningococcal Vaccine Aged Out No neisha tahira eligible based on patient's age to complete this topic Pneumococcal Vaccine: Pediat rics (0 to 5 Years) and At-Risk Patients (6 to 64 Years) Aged Out No longer eligible b ased on patient's age to complete this topic RSV Immunizations Under 20 Months Aged Out No longer eligible based on patient's age to complete this topic Insurance [facility] Care Teams Turn Operator Relationship Specialty Start Date End Date Rekha Schneider MD [address] [place] [id number] PCP - General INTERNAL MEDICINE 03/02/24
--- OUTSIDE RECORDS SUMMARY | 2024-10-22 00:15 | XMS_ITS | Clinical Summary ---
Author Organization [facility] Address [address] [place] [address] Phone Care Team Providers Care Datawarehouse Developer Name Role Phone Unknown, Notinfile Primary Care Provider Unavail able Allergies No known active allergies Medications carvediloL (COREG) 12.5 mg tablet Take 1 tablet (12.5 mg total) by mouth 2 (two) times a day with meals 11/08/2023 Active aspirin 81 mg enteric coated tablet Take 1 tablet (81 mg total) by mouth daily Active atorvastatin (LIPITOR) 80 mg tablet Take 1 tablet (80 mg total) by mouth nightly Active losartan (COZAAR) 50 mg tablet Take 1 tablet (50 mg total) by mouth daily Active Active Problems Problem Noted Date Diagnosed Date Stable angina 01/18/2024 Chest pain 01/18/2024 Abnormal EKG 01/18/2024 CAD (coronary artery disease) 01/18/2024 Hypertension 01/18/2024 Hyperlipidemia 01/18/2024 Polysubstance abuse (CMS/HCC) 01/18/2024 Tobacco abuse 01/18/2024 Morbid obesity 01/18/2024 Surgical History Surgery Date Site/Laterality Comments CORONARY STENT PLACEMENT LAD 2019 Medical History Medical History Date Comments RI, old 2019 Hypertension Hyperlipidemia Cocaine abuse (HCC) Methamphetamine abuse (CMS/HCC) (HCC) Social History Tobacco Use Types Packs/Day Years Used Date Smoking Tobacco: Every Day Cigarettes 1.5 23 Tobacco Cessation:Ready to Q uit: No; Counseling Given: No Comments:refused Alcohol Use Standard Drinks/Week Comments Not Currently 0 (1 standard drink = 0.6 oz pur e alcohol) Personal Safety Answer Date Recorded Have you ever been in or are you currently in a harmful physical or emotional relationship or is someone making you feel afraid or unsafe? 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 Gender Identity Not on file Sexual Orientation Not on file Obstetrics History Last Filed Vital Signs Vital Sign Reading Time Taken Comments Blood Pressure 142/78 01/19/2024 4:09 PM CDT Pulse 69 01/19/2024 4:09 PM CDT Temperature 36.8 ??C (98.2 ??F) 01/19/2024 4:09 PM CD T Respiratory Rate 18 01/19/2024 4:09 PM CDT Oxygen Saturation 95% 01/19/2024 4:09 PM CDT Inhaled Oxygen Concentration - - Weight 141.3 kg (311 lb 8 oz) 01/18/2024 9:11 PM CDT Height 188 cm (6' 2 ) 01/18/2024 9:11 PM CDT Body Mass Index 39.99 01/18/2024 9:11 PM CDT Plan of Treatment Health Maintenance Due Date Last Done Comments Depression Screening 1984 Pneumococcal vaccine <65 (1 of 2 - PCV) 01/16/1990 DTaP/Tdap/Td Vaccine (1 - Tdap) 01/16/1995 Varicella Vaccines (1 of 2 - 13+ 2-dose series) 01/16/1997 Hepatitis B Screening 01/16/2002 Regular Well Visit/Exam 18-64 01/16/2002 Covid-19 Vaccine (3 - 2023-2 5 season) 2024 06/22/2021, 06/01/2021 Influenza Vaccine (#1) 2024 Hepatitis C Screening Completed 01/18/2024 HPV Vaccines Aged Out No longer eligi ble based on patient's age to complete this topic Medical Devices Implanted Type Area Site Physician Device Identifier Shelf Expiration Date Model / Serial / Lot [employer] V[employer] [id number] System Coronary Stent Xience Kassie Everolimus L23 Mm Od3.5 Mm Rapid Exchange - [id number] Implanted:Qty: 1 on 04/26/2019 by Jason Calix MD at [facility] [employer] 01/24/2020 1550 350-23 / / [id number] Procedures Procedure Name Priority Date/Time Associated Diagnosis Comments HEPATITIS PANEL, ACUTE Routine 01/18/2024 7:44 PM CDT from Last 3 Months or Most Recently Relevant to Health Maintenance Results * Hepatitis panel, acute Blood (01/18/2024 7:44 PM CDT) Hep A IgM Nonreactive Nonreactive Comment: Interpretive Data: If Hep A IgM Ab is reported as Equivocal, a new sample should be drawn in two weeks for testing. Current interpretive data was last revised on 19. Hep B core IgM Nonreactive Nonreactive [place] Comment: Interpretive Data If HepB Core IgM Ab is reported as Equivocal, a new sample should be drawn in two weeks for testing. Current interpretive data was last revised on 19. Hep C Ab Nonreactive Nonreactive [place] Comment: Antibodies to HCV not detected. Does NOT exclude the possibility of recent exposure to HCV. Current interpretive data was last revised on 22 Interpretive Data Nonreactive: Antibodies to HCV not detected. Does NOT exclude the possibility of recent exposure to HCV. Equivocal: Equivocal for HCV antibodies. Supplemental molecular testing will be automatically performed to determine infection status in accordance with current CDC screening recommendations. ?? Reactive: Positive for HCV antibodies. ??This may represent current or past HCV infection. Supplemental molecular testing will be automatically performed to determine ??current infection status in accordance with current CDC screening recommendations. Interpretive data was last revised on 2019. HepBsAg Nonreactive Nonreactive [place] Blood 01/18/2024 7:44 PM CDT 01/18/2024 7:47 PM CDT Neyda [facility] LAB MICROBIOLOGY - GENERAL OR DERABLES Final Result [facility] [address] [facility] [place] [address] from Last 3 Months or Most Recently Relevant to Health Maintenance Insurance [employer] [place], [place] [address] CHOICE PLUS Advance Directives For more information, please contact: [phone] * Full Code (Latest Code Status on File) Date Activated Date Inactivated Comments 01/18/2024 7:05 PM 01/19/2024 10:03 PM * Full Code Date Activated Date Inactivated Comments 04/26/2019 4:46 PM 04/28/2019 4:06 PM Care Teams Datawarehouse Developer Relationship Specialty Start Date End Date Unknown, Notinfile PCP - General 04/26/19
--- OUTSIDE RECORDS SUMMARY | 2024-10-22 00:15 | XMS_ITS | Encounter Summary ---
Author Organization [facility] Address [address] [place] [address]. [place], [place] [id number] [place] [address] Care Team Providers Care Tub Mender Name Role Phone Unavailable Primary Care Provider Unavailabl e Encounter Details Date Type Department Care Team (Late st Contact Info) Description 04/18/2007 Emergency Health [place] [address] , Wilfredo Kirk MD Social History Tobacco Use Types Packs/Day Years Used Date Smoking Tobacco: Never Assessed Sex and Gender Information Value Date Recorded Sex Assigned at Not on file Legal Sex Male 8:27 PM CDT Gender Identity Not on file Sexual Orientation Not on file documented as of this encounter Plan of Treatment Not on file documented as of this encounter Visit Diagnoses Not on filedocumented in this encounter
--- OUTSIDE RECORDS SUMMARY | 2024-10-22 00:15 | XMS_ITS | Referral Summary ---
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 [employer] 01/24/2020 1550 350-23 / / [id number] Procedures Procedure Name Priority Date/Time Associated Diagnosis [...] revised on 2019. HepBsAg Nonreactive Nonreactive [place] ANANT Blood 01/18/2024 7:44 PM CDT 01/18/2024 7:47 PM CDT us Neyda GAMBO[facility] LAB MICROBIOLOGY - GENERAL OR DERABLES Final Result [place] [address] [facility] Department [place] [address] from Last 3 Months or Most Recently Relevant to Health Maintenance Insurance CHOICE PLUS Advance Directives For more information, please contact: [phone] * Full Code (Latest Code Status on File) Date Activated Date Inactivated Comments 01/18/2024 7:05 PM 01/19/2024 10:03 PM * Full Code Date Activated Date Inactivated Comments 04/26/2019 4:46 PM 04/28/2019 4:06 PM Care Teams Gauge Controller Relationship Specialty Start Date End Date Unknown, Notinfile PCP - General 04/26/19
--- OUTSIDE RECORDS SUMMARY | 2024-10-22 00:15 | XMS_ITS | Encounter Summary ---
Author Organization [facility] Care Team Providers Care Payroll And Benefits Coordinator Name Role Phone Unknown, Notinfile Primary Care Provider Unavail able Encounter Details Date Type Department Care Team (Latest Contact Info) Description 04/26/2019 Travel Social History Tobacco Use Types Packs/Day Years Used Date Smoking Tobacco: Every Day Cigarettes 1.5 23 Comments:refused Alcohol Use Standard Drinks/Week Comments Not Currently 0 (1 standard drink = 0.6 oz pur e alcohol) Sex and Gender Information Value Date Recorded Sex Assigned at Not on file 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
--- OUTSIDE RECORDS SUMMARY | 2024-10-22 00:15 | XMS_ITS | Encounter Summary ---
Author Organization [facility] Address [address] [place] [address] Care Team Providers Care Weight And Test Bar Clerk Name Role Phone Unknown, Notinfile Primary Care Provider Unavail able Encounter Details Date Type Department Care Team (Late st Contact Info) Description 06/04/2020 12:15 PM CDT Lab [facility] [address] [place], [place] [id number] Jason Calix MD [address] [address] Discharge Disposition: Discharge to home or self care Social History Tobacco Use Types Packs/Day Years Used Date Smoking Tobacco: Every Day Cigarettes 1.5 23 Comments:refused Alcohol Use Standard Drinks/Week Comments Not Currently 0 (1 standard drink = 0.6 oz pur e alcohol) Sex and Gender Information Value Date Recorded Sex Assigned at Not on file 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 Gender Identity Not on file Sexual Orientation Not on file documented as of this encounter Discharge Disposition Disposition Code Departure Means Destination Discharge to home or self care documented in this encounter Plan of Treatment Not on file documented as of this encounter Procedures Procedure Name Priority Date/Time Associated Diagnosis Comments EGFR Routine 06/04/2020 1:02 PM CDT DIFFERENTIAL AUTO Routine 06/04/2020 1:0 2 PM CDT CBC WITH AUTO DIFFERENTIAL Routine 06/04/2020 1:02 PM CDT TSH Routine 06/04/2020 1:02 PM CDT LIPID PANEL Routine 06/04/2020 1:02 PM CDT COMPREHENSIVE METABOLIC PANEL Routine 06/04/2020 1:02 PM CDT documented in this encounter Results * eGFR (06/04/2020 1:02 PM CDT) [facility] eGFR >90 mL/min/1.7 3 m2 [facility] ([place]) Comment: Interpretive Data Reference Interval Normal ?>/= 90 mL/min/1.73m2 Mildly decreased* ? 60 - 89 mL/min/1.73m2 Mildly to moderately decreased ?45 - 59 mL/min/1.73m2 Moderately to severely decreased ??30 - 44 mL/min/1.73m2 Severely decreased ?15 - 29 mL/min/1.73m2 Kidney Failure ?< 15 ??mL/min/1.73m2 *Relative to young adult level If -Tajik multiply value by 1.16. Estimated glomerular filtration [...] was last reviewed 2016. Blood specimen (specimen) 06/04/2020 1:02 PM CDT 06/04/2020 1:16 PM CDT us Jason Calix MD LAB BLOOD ORDERABLES Ayse emerson Result [facility] ([place]) [address] [facility] Department [place] [address] * (ABNORMAL) Differential, auto (06/04/2020 1:02 PM CDT) Neutrophil abs 3.8 1.7 - 6.5 K/cumm [facility] ([place]) Imm gran abs 0.0 0.0 - 0.1 K/cumm [facility] ([place]) Lymphocyte abs 2.2 0.8 - 3.3 K/cumm [facility] ([place]) Monocyte abs 0.9(H) 0.2 - 0.8 K/cumm [facility] ([place]) Eosinophil abs 0.2 0.0 - 0.5 K/cumm [facility] ([place]) Basophil abs 0.1 0.0 - 0.1 K/cumm [facility] ([place]) Neutrophil pct 52.2 % [facility] ([place]) Comment: Interpretive Data Percent cell count reference ranges are not reported, since discordance with absolute values may lead to misinterpretation of CBC data. Current Interpretive Data was last revised on 2018. Imm gran pct 0.6 % [facility] ([place] Comment: Interpretive Data Percent cell count reference ranges are not reported, since discordance with absolute values may lead to misinterpretation of CBC data. Current Interpretive Data was last revised on 2018. Lymphocyte pct 30.7 % [facility] ([place]) Comment: Interpretive Data Percent cell count reference ranges are not reported, since discordance with absolute values may lead to misinterpretation of CBC data. Current Interpretive Data was last revised on 2018. Monocyte pct 12.9 % [facility] ([place]) Comment: Interpretive Data Percent cell count reference ranges are not reported, since discordance with absolute values may lead to misinterpretation of CBC data. Current Interpretive Data was last revised on 2018. Eosinophil pct 2.8 % [facility] ([place]) Comment: Interpretive Data Percent cell count reference ranges are not reported, since discordance with absolute values may lead to misinterpretation of CBC data. Current Interpretive Data was last revised on 2018. Basophil pct 0.8 % [facility] ([place]) Comment: Interpretive Data Percent cell count reference ranges are not reported, since discordance with absolute values may lead to misinterpretation of CBC data. Current Interpretive Data was last revised on 2018. Blood specimen (specimen) 06/04/2020 1:02 PM CDT 06/04/2020 1:02 PM CDT Jason Calix MD LAB BLOOD ORDERABLES Ayse l Result Performing Organization Address City/[facility]/ZIP Co de Phone Number [facility] ([place]) [address] [place], [place] [id number] * TSH (06/04/2020 1:02 PM CDT) Thyroid Stimulating Hormone 1.06 0.30 - 4.20 mcIUnit/mL [facility] ([place]) Blood specimen (specimen) 06/04/2020 1:02 PM CDT 06/04/2020 1:02 PM CDT Jason Calix MD LAB BLOOD ORDERABLES Ayse l Result Performing Organization Address [facility] Co de Phone Number [facility] ([place]) [address] [place] [address] * (ABNORMAL) Lipid panel (06/04/2020 1:02 PM CDT) Cholesterol 135 30 - 199 mg/dL [facility] ([place]) Comment: Interpretive Data Ages < [...] Data was last revised on 2018. Triglycerides 263(H) <=149 mg/dL [facility] ([place]) Comment: Interpretive Data Ages < or [...] Data was last revised on 2018. HDL 37(L) >=40 mg/dL [facility] ([place]) Comment: Interpretive Data Ages < or [...] was last revised on 2018. LDL, calculated 45 <=129 mg/dL [facility] ([place]) Comment: Interpretive Data Ages < or [...] was last revised on 2018. Non-HDL Cholesterol 98 mg/dL [place] [place]) Comment: Interpretive Data [...] was last revised on 2018. Chol/HDL ratio 4 TO [place] [facility] ([place]) Blood specimen (specimen) 06/04/2020 1:02 PM CDT 06/04/2020 1:02 PM CDT us Jason Calix MD LAB BLOOD ORDERABLES Ayse emerson Result [facility] ([place]) [address] [facility] [place] [address] * Comprehensive metabolic panel (06/04/2020 1:02 PM CDT) Sodium 137 135 - 145 mmol/L [facility] ([place]) Potassium, pl 4.0 3.3 - 4.9 mmol/L [facility] ([place]) Chloride 102 97 - 110 mmol/L [facility] ([place]) CO2 26 22 - 32 mmol/L [facility] ([place]) Anion gap 8 2 - 15 mmol/L [facility] ([place]) BUN 10 8 - 25 mg/dL [facility] ([place]) Creatinine 0.91 0.80 - 1.30 mg/dL [facility] ([place]) Glucose 84 70 - 199 mg/dL [facility] ([place]) [...] interpretive data was last revised 2017. Calcium 9.6 8.5 - 10.3 mg/dL [facility] ([place]) Bilirubin, total 0.3 0.1 - 1.2 mg/dL [facility] ([place]) Protein, pl 7.4 6.5 - 8.5 g/dL [facility] ([place]) Albumin 4.4 3.5 - 5.0 g/dL [facility] ([place]) Alk phos 65 40 - 130 Units/L [facility] ([place]) ALT 27 7 - 55 Units/L [facility] ([place]) AST 27 10 - 50 Units/L [facility] ([place]) Blood specimen (specimen) 06/04/2020 1:02 PM CDT 06/04/2020 1:02 PM CDT us Jason Calix MD LAB BLOOD ORDERABLES Ayse emerson Result [facility] ([place] [address] [facility] [employer] [place], [place] [id number] * CBC with auto differential (06/04/2020 1:02 PM CDT) WBC 7.2 3.8 - 9.9 K/cumm [place] [facility] ([place]) Hgb 14.2 13.0 - 17.5 g/dL [facility] ([place]) Hct 40.1 38.9 - 50.3 % [facility] [place] ([place]) Plt 157 150 - 400 K/cumm [facility] ([place]) MPV 11.0 9.1 - 12.3 fL [facility] ([place]) RBC 4.33 4.30 - 5.80 M/cumm [facility] ([place]) MCV 92.6 81.3 - 96.4 fL [facility] ([place]) MCH 32.8 27.1 - 33.3 pg [facility] ([place]) MCHC 35.4 32.3 - 35.7 g/dL [facility] ([place]) RDW CV 12.4 11.1 - 14.9 % [facility] ([place]) RDW SD 42.3 35.7 - 48.1 fL [facility] ([place]) NRBC abs 0.00 0.00 - 0.01 K/cumm [facility] ([place]) Blood specimen (specimen) 06/04/2020 1:02 PM CDT 06/04/2020 1:02 PM CDT us Jason Calix MD LAB BLOOD ORDERABLES Ayse ki Result [place] [facility] ([place]) [address] [facility] [place] [address] documented in this encounter Visit Diagnoses Not on filedocumented in this encounter Care Teams Weight And Test Bar Clerk Relationship Specialty Start Date End Date Unknown, Notinfile PCP - General 04/26/19 documented as of this encounter
--- OUTSIDE RECORDS SUMMARY | 2024-10-22 00:15 | XMS_ITS | Encounter Summary ---
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 Name Role Phone Unknown, Notinfile Primary Care Provider Unavail able Reason for Visit * Reason Comments Addiction Problem Chest Pain * Auth/Cert (Routine) Specialty Diagnoses / Procedures Referred By Shannon t Referred To Contact Diagnoses Stable angina (HCC) Chest pain, unspecified type Procedures na Referral ID Status Reason Start Date Expiration Date Visits Re quested Visits Authorized [id number] 1 1 Encounter Details Date Type Department Care Team (Latest Contact Info) Description 01/18/2024 3:31 PM CDT - 01/19/2024 6:03 PM CDT Hospital Encounter [address] [id number] Srikanth Rojas MD [address] [place] [address] [phone] Reno Clayton MD [address] [place] [address] OFFICE, [place], [place] [phone] Reina Bell MD [address] [place] [address] [phone] Stable angina (HCC) (Primary Dx); Chest pain, unspecified type Discharge Disposition: Discharge to home or self [...] on file 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 LOS - LOS: 0 days DETAILS OF HOSPITAL STAY Hospital Problems/Diagnoses Principal Problem: Chest pain Active Problems: Abnormal EKG CAD (coronary artery disease) Hypertension Hyperlipidemia Polysubstance abuse (CMS/HCC) (HCC) Tobacco abuse Morbid obesity ([facility]) Reason for Hospitalization: Chest pain History of coronary artery disease/hypertension Hyperlipidemia Polysubstance abuse Tobacco use Morbid obesity Hospital Course: Patient admitted for chest pain. Seen by store stocker this morning Coronary artery disease with atypical chest pain likely triggered by hypertensive urgency and polysubstance abuse. Stress test is negative. Patient has been cleared by Cardiology for discharge He is to continue has been 81 mg as prescribed resume Coreg and losartan Continue high-intensity statin therapy. Smoking cessation advised/lengthy discussion regarding importance of cessation of polysubstance use. Patient urine drug screen was positive for cocaine and meth amphetamine at time of admission. Echocardiogram Ejection Fraction = 60-65%. The right ventricular systolic function is normal. Right ventricular systolic pressure is normal. There is no pericardial effusion. E/E prime ratio is 8 -15 which is in the indeterminate zone. Stress test: Negative for ischemia Details from my progress note performed by me earlier this morning are as follows. Chest pain: History of coronary artery disease: History of hypertension Hyperlipidemia Polysubstance abuse: Cessation advised Tobacco abuse: Smoking cessation advised Morbid obesity: Will benefit from weight loss Patient is hemodynamically stable Troponin negative so far A1c 6.2 Lipid profile: Total cholesterol 137, HDL 35, LDL 58, triglyceride 102 Continue aspirin/statin/losartan Beta-dorian is on hold Plan of echocardiogram=> normal ejection fraction/normal diastolic function Plan of stress test today => negative for ischemia Will follow up on further recommendation by cardiology service. Discharge Details Physical Exam at Discharge: Discharge Condition: stable Pulse: 72 Resp: 18 BP: 136/80 Temp: 36.9 ??C (98.4 ??F) Weight: (!) 141.3 kg (311 lb 8 oz) Pertinent Exam Findings at Discharge: Details of physical exam from my progress note performed by me earlier this morning are as follows. General Exam: no acute distress obese Neck: Supple Cardiovascular: Normal range, Regular rhythm, S1S2 normal. ABSENT: Edema Respiratory: CTA bilaterally, Effort normal ABSENT: Crackles, Rhonchi Abdomen: Bowel sounds present, Soft. ABSENT: Mass, Tenderness, Distention Psychiatric - Orientation: Oriented to: Time, Place, Person Discharge Disposition: Discharge to home or self care Code Status at Discharge: Full Code Active Issues & Recommended Plan for Follow-up: cardiology Allergies: Patient has no known allergies. Discharge Medications: Your medication list CONTINUE taking these medications Instructions Last Dose Given Next Dose Due aspirin 81 mg enteric coated tablet 81 mg, oral, Daily atorvastatin 80 mg tablet Commonly known as: LIPITOR 80 mg, oral, Nightly carvediloL 12.5 mg tablet Commonly known as: COREG 12.5 mg, oral, 2 times daily with meals (bkfst, dinner) losartan 50 mg tablet Commonly known as: COZAAR 50 mg, oral, Daily Time Spent in Discharge Process: I have spent 35 minutes on discharge planning activities. Test Results Pending at Discharge (If Blank, None Found): Pending Labs Order Current Status Amphetamine Confirmation, Urine In process Cocaine Confirmation, Urine In process HIV 1/2 Antibody plus p24 Antigen Blood In process Operative Procedures Performed (If Blank, None Found): Outpatient Follow-Up: Contact Information for Follow-ups Kathie Kemp NP Specialty: Cardiovascular Disease, Internal Medicine, Interventional Cardiology [address] [place] [address] [address] MILTON [address] [address] Next Steps: Follow up Instructions: 4-6 weeks, post hospital cardiology follow-up Please schedule an appointment with the following provider(s): Kathie Kemp NP [address] [place] [address] DR MILTON [address] [address] Follow up 4-6 weeks, post hospital cardiology follow-up ANCILLARY INFORMATION Other Procedures & Diagnostic Tests: NM MPI SPECT (Rest and/or Stress) Multiple Studies Result Date: 01/19/2024 EXAM DESCRIPTION: NM MPI SPECT (REST AND/OR STRESS) MULTIPLE STUDIES REASON FOR STUDY: Chest pain. RADIOPHARMACEUTICAL: Rest: 11 mCi Tc-99m tetrofosmin Pharmacologic Stress: 33 mCi Tc-99m tetrofosminInjection site: Left antecubital vein IV site TECHNIQUE: Standard myocardial perfusion SPECT imageswere obtained after resting tracer injection. Subsequently, an intravenous infusion of 0.4 mg Lexiscan was performed. Standard myocardial perfusion images were obtained after tracer injection at the peak effect of the drug. COMPARISON: None FINDINGS: Image quality is adequate at rest and adequate at stress. There are no perfusion abnormalities. The left ventricular cavity size is top-normal . Gated tomographic images demonstrate normal wall motion and wall thickening with a left ventricular ejection fraction of 70 % poststress (normal >45%). IMPRESSION: Normal myocardial perfusion study. No scintigraphic evidence of myocardial ischemia. Normal left ventricular ejection fraction of 70 % poststress. Normal wall motion. Prominence of the left ventricle. THIS IS AN ELECTRONICALLY VERIFIED FINAL REPORT 01/19/2024 1:33 PM - Electronically signed by Chris Chinchilla M.D. LB T: Report ID: [id number] Reading Location: [id number] Transthoracic Echo (TTE) Complete W Doppler/CF Result Date: 01/19/2024 Adult Echocardiogram + + :Name: JOSE GUARDADO Study Date: 01/19/2024 Status: [facility] : : Patient Location: [address]^[id number]^MHBHeight: 74 in : : Weight: 311 lbBP: 129/69 mmHg: :: 1985 Gender: Male BSA: 2.6 m2 : :Reason For Study: chest pain : :Ordering Physician: : :SARA ROACH : : : :Performed By: Dipti : :MATY Pickard : +----- +Procedure A two-dimensional transthoracic echocardiogram with color flow and Doppler was performed.Left Ventricle The left ventricle is normal in size. There is normal left ventricular wall thickness. Left ventricular systolic function is normal. Ejection Fraction = 60-65%. No obvious regional wall motion abnormalities noted. Right Ventricle The right ventricle is normal size. The right ventricular systolic function is normal. Atria The left atrial size is normal. Right atrial size is normal. There is no Doppler evidence for an atrial septal defect. Mitral Valve The mitral valve leaflets appear normal. There is no evidence of stenosis, fluttering, or prolapse. There is no mitral valve stenosis. There is trace mitral regurgitation. Tricuspid Valve The tricuspid valve is normal. There is no tricuspid stenosis. There is trace to mild tricuspid regurgitation. Right ventricular systolic pressure is normal. Aortic Valve The aortic valve is normal in structure and function. No aortic stenosis . No aortic regurgitation is present. Pulmonic Valve The pulmonic valve is not well visualized. There is no pulmonic valvular stenosis. Trace pulmonic valvular regurgitation. Great Vessels The aortic root is normal size. Normal right heart pressures. Pericardium There is no pericardial effusion. Diastology E/E prime ratio is 8 -15 which is in the indeterminate zone. Interpretation Summary Ejection Fraction = 60-65%. The right ventricular systolic function is normal. Right ventricular systolicpressure is normal. There is no pericardial effusion. E/E prime ratio is 8 -15 which is in the indeterminate zone. + + :Measurements with Normals : : (0.6-1.2 LVIDd: (3.5-5.7 Ao root diam: (2.0-3.7 : :IVSd: 1.2 cmcm) 5.4 cmcm) 3.9 cm cm) : :LVPWd: (0.6-1.1 LVIDs: (3.1-4.6 LA dimension: (1.9-4.0 : :1.1 cm cm) 3.2 cm cm) 3.6 cm cm) : + + MMode/2DMeasurements & Calculations FS: 41.0 % Ao root area: 11.9 cm2 LVOT diam: 2.3 cm EDV(Teich): 142.5 ml LVOT area: 4.2 cm2 ESV(Teich): 41.0 ml Doppler Measurements & Calculations MV E max renaldo: MV dec time: Ao V2 max: LV V1 max P.3 cm/sec 0.25 sec 137.0 cm/sec 5.9 mmHg MV A max renaldo: Ao maxP.5 mmHgLV V1 max: 52.3 cm/sec LILIYA(V,D): 3.7 cm2 121.0 cm/sec MV E/A: 1.5 TV V2 max: PA V2 max: RV V1 max: RAP systole: 55.4 cm/fte362.0 cm/sec 72.8 cm/sec 3.0 mmHg TV max P.2 mmHg PA max P.3 mmHg Electronically signed by:Rudy Malave MD 01/19/2024 01:19 PM Stress Test for Myocardial Perfusion Result Date: 01/19/2024 LEXISCAN NUCLEAR STRESS TEST CLINICAL INDICATION: Coronary Artery Disease, chest pain, hypertensiveurgency STUDY DESCRIPTION: After reviewing benefits, risks and alternatives and obtaining informed consent, patient was infused with Lexiscan per protocol. This was followed by Myoview and fluid bolus. Resting heart rate was 63 bpm. Heart rate at the end of the test was 98 bpm. Initial blood pressure 131/51 mm Hg. Blood pressure at the end of the test was 118/71 mm Hg. Patient experienced expected Lexiscan side effects. Test was terminated after protocol was complete. Test supervised by Rudy Malave MD. EKG FINDINGS: Resting EKG shows sinus rhythm with left axis deviation and incomplete right bundle-branch block. There were no EKG changes diagnostic for ischemia post Lexiscan infusion. There were no clinically significant arrhythmias CONCLUSION: EKG portion of Lexiscan Myoview is negative for inducible ischemia. No clinically significant arrhythmias noted. Nuclear medicine portion of this test will be dictated separately XR Chest 1 Vw Portable Result Date: 01/18/2024 EXAM DESCRIPTION: XR CHEST 1 VIEW REASON FOR STUDY: chest pain Ambulatory to triage with c/o slipped on my sobriety yesterday morning Admits to doing cocaine and smoking meth yesterday am. States lost 15lbs since Wednesday Reports decreased PO intake. Not feeling hungry or thirsty TECHNIQUE: PA radiographic view(s) of the chest. COMPARISON: 04/26/2019 FINDINGS: LUNGS: No focal opacity, pleural effusion, or pneumothorax. HEART/MEDIASTINUM: Cardiac silhouette normal in size. Mediastinal and hilar contours appear normal. LINES/TUBES: None. BONES: No acute osseous abnormality. IMPRESSION: Noplain film abnormality evident on PA view. THIS IS AN ELECTRONICALLY VERIFIED FINAL REPORT 2:32 PM - Electronically signed by Prakash Latham M.D. T: Report ID: [id number] Reading Location: [place] [address] Recent Labs: Recent Labs Lab Units 01/18/24 1212 WBC K/cumm 7.0 HEMOGLOBIN g/dL 15.5 HEMATOCRIT % 43.5 PLATELETS K/cumm 169 Recent Labs Lab Units 01/18/24 1212 WBC K/cumm 7.0 HEMOGLOBIN g/dL 15.5 HEMATOCRIT % 43.5 PLATELETS K/cumm 169 NEUTROS PCT % 54.5 LYMPHS PCT % 32.5 MONOS PCT % 8.7 EOS PCT % 3.0 Recent Labs Lab Units 01/18/24 1212 SODIUM mmol/L 135 POTASSIUM PLASMA mmol/L 3.9 CHLORIDE mmol/L 101 CO2 mmol/L 22 BUN SERUM mg/dL 13 CREATININE mg/dL 1.10 [id number] mL/min/1.73 m2 87 GLUCOSE mg/dL 158 CALCIUM mg/dL 9.1 ALBUMIN g/dL 4.3 Recent Labs Lab Units 01/18/24 1212 SODIUM mmol/L 135 POTASSIUM PLASMA mmol/L 3.9 CHLORIDE mmol/L 101 CO2 mmol/L 22 ANIONGAP mmol/L 12 GLUCOSE mg/dL 158 BUN SERUM mg/dL 13 CREATININE mg/dL 1.10 CALCIUM mg/dL 9.1 ALBUMIN g/dL 4.3 ALK PHOS Units/L 71 ALT Units/L 44 AST Units/L 41 BILIRUBIN TOTAL mg/dL 0.4 Recent Labs Lab Units 01/18/24 1212 ALK PHOS Units/L 71 BILIRUBIN TOTAL mg/dL 0.4 TOTAL PROTEIN g/dL 7.5 ALT Units/L 44 AST Units/L 41 Recent Labs Lab Units 01/18/24 1944 MAGNESIUM mg/dL 2.0 Lab Results Component Value Date GLUCOSE 158 01/18/2024 GLUCOSE 84 06/04/2020 GLUCOSE 105 04/27/2019 Implant: Implants Type Not Specified [employer] [id number] System Coronary Stent Xience Susan Everolimus L23 Mm Od3.5 Mm Rapid Exchange - [id number] - Implanted Inventory item: [employer] CORONARY STENT XIENCE SUSAN EVEROLIMUS L23 MM OD3.5 MM RAPID EXCHANGE [id number] Model/Cat number: [id number] Soaker: [employer] Lot number: [id number] As of 04/26/2019 Status: Implanted General Precautions (If Blank, None Found): Isolation Status: No active isolations Nutritional Status and in-house recommendations: Dietary Orders (From admission, onward) Start Ordered 01/19/24 0001 NPO Diet Sips with meds Diet effective midnight Question: NPO except: Answer: Sips with meds 01/18/24 1905 Anticoagulation Indication: INR: No results found for requested labs within last 30 days. Warfarin Administrations (last 168 hours) None Oxygen Status: O2 Therapy for the past 12 hrs: O2 Therapy 01/19/24 1253 None (Room air) 01/19/24 0758 None (Room air) 01/19/24 0338 None (Room air) Wound Care Instructions Active LDAs (If Blank, None Found): Peripheral IV 01/18/24 20 G Left Antecubital (Active) Placement Date/Time: 01/18/24 121 Type: Angiocath Size (Gauge): 20 G Location Orientation: Left Location: Antecubital Technique: Anatomical landmarks Inserted by: RACQUEL Larsen Insertion attempts: 1 Patient Tolerance: Tolerated well Patient Emergency Contact: Immunization Status at Discharge Immunization History Administered Date(s) Administered Pfizer SARS-CoV-2 Monovalent Vaccination (12+ Yrs) PURPLE 06/01/2021, 06/22/2021 Reina Bell MD documented in this encounter Discharge Instructions * Attachments The following attachments cannot be sent through Care Everywhere. * Chest Pain (Discharge Care) (Guyanese) documented in this encounter Medications at Time of Discharge aspirin 81 mg enteric coated tablet Take 1 tablet (81 mg total) by mouth daily atorvastatin (LIPITOR) 80 mg tablet Take 1 tablet (80 mg total) by mouth nightly carvediloL (COREG) 12.5 mg tablet Take 1 tablet (12.5 mg total) by mouth 2 (two) times a day with meals 11/08/2023 losartan (COZAAR) 50 mg tablet Take 1 tablet (50 mg total) by mouth daily documented as of this encounter Discharge Disposition Disposition Code Departure Means Destination Comment s Discharge to home or self care documented in this encounter Progress Notes * Reina Bell MD - 01/19/2024 11:53 AM CDT General Medicine Daily Progress SUBJECTIVE Patient is seen for follow-up of chest pain. He has history of hypertension/hyperlipidemia/nicotine dependence/coronary artery disease. Patient is seen examined today Sitting up comfortably in bed Denies any chest pain shortness for breath this time No overnight issues reported by nursing staff Patient is NPO Plan of echocardiogram/stress test today. OBJECTIVE Vitals: 24hr Min/Max: Temp Min: 36.4 ??C (97.5 ??F) Max: 36.8 ??C (98.2 ??F) Pulse Min: 57 Max: 85 BP Min: 101/52 Max: 160/98 Resp Min: 11 Max: 21 SpO2 Min: 94 % Max: 99 % Most Recent : Vitals: 01/19/24 0758 BP: 129/81 Pulse: 58 Resp: 16 Temp: 36.5 ??C (97.7 ??F) SpO2: 96% No intake/output data recorded. No intake/output data recorded. Physical Exam: General Exam: I no acute distress Neck: Supple Cardiovascular: Normal range, Regular rhythm, S1S2 normal. ABSENT: Edema Respiratory: CTA bilaterally, Effort normal ABSENT: Crackles, Rhonchi Abdomen: Bowel sounds present, Soft. ABSENT: Mass, Tenderness, Distention Psychiatric - Orientation: Oriented to: Time, Place, Person Lab/Current Medication Review: Recent Results (from the past 24 hour(s)) CBC with auto differential Collection Time: 01/18/24 12:12 PM Result Value Ref Range WBC 7.0 3.8 - 9.9 K/cumm Hgb 15.5 13.0 - 17.5 g/dL Hct 43.5 38.9 - 50.3 % Plt 169 150 - 400 K/cumm MPV 10.9 9.1 - 12.3 fL RBC 4.66 4.30 - 5.80 M/cumm MCV 93.3 81.3 - 96.4 fL MCH 33.3 27.1 - 33.3 pg MCHC 35.6 32.3 - 35.7 g/dL RDW CV 12.6 11.1 - 14.9 % RDW SD 43.3 35.7 - 48.1 fL NRBC abs 0.00 0.00 - 0.01 K/cumm Comprehensive metabolic panel Collection Time: 01/18/24 12:12 PM Result Value Ref Range Sodium 135 135 - 145 mmol/L Potassium, pl 3.9 3.3 - 4.9 mmol/L Chloride 101 97 - 110 mmol/L CO2 22 22 - 32 mmol/L Anion gap 12 2 - 15 mmol/L BUN 13 6 - 25 mg/dL Creatinine 1.10 0.80 - 1.30 mg/dL Glucose 158 70 - 199 mg/dL Calcium 9.1 8.5 - 10.3 mg/dL Bilirubin, total 0.4 0.1 - 1.2 mg/dL Protein, pl 7.5 6.5 - 8.5 g/dL Albumin 4.3 3.5 - 5.0 g/dL Alk phos 71 40 - 130 Units/L ALT 44 7 - 55 Units/L AST 41 10 - 50 Units/L Troponin T high-sensitivity series (baseline, 2hr, 4hr, 6hr) Collection Time: 01/18/24 12:12 PM Result Value Ref Range Trop T hs 15 <=22 ng/L Differential, auto Collection Time: 01/18/24 12:12 PM Result Value Ref Range Neutrophil abs 3.8 1.5 - 6.5 K/cumm Imm gran abs 0.0 0.0 - 0.1 K/cumm Lymphocyte abs 2.3 0.8 - 3.3 K/cumm Monocyte abs 0.6 0.2 - 0.8 K/cumm Eosinophil abs 0.2 0.0 - 0.5 K/cumm Basophil abs 0.1 0.0 - 0.1 K/cumm Neutrophil pct 54.5 % Imm gran pct 0.6 % Lymphocyte pct 32.5 % Monocyte pct 8.7 % Eosinophil pct 3.0 % Basophil pct 0.7 % eGFR Collection Time: 01/18/24 12:12 PM Result Value Ref Range eGFR 87 >=60 mL/min/1.73 m2 ECG 12 lead Collection Time: 01/18/24 12:13 PM Result Value Ref Range Ventricular Rate EKG/Min 67 BPM Atrial Rate 67 BPM [place]-Interval (MSEC) 146 ms QRS-Interval (MSEC) 112 ms QT-Interval (MSEC) 420 ms QTc 443 ms P [place] 10 degrees R [place] -21 degrees T [place] 85 degrees Diagnosis Normal sinus rhythm Incomplete right bundle branch block T-wave changes When compared with ECG of 27-APR-2019 06:50, Incomplete right bundle branch block is now Present Confirmed by SULTAN BANGURA M.D. ([id number]) on 01/18/2024 3:44:34 PM Troponin T high-sensitivity 2-hour Collection Time: 01/18/24 2:30 PM Result Value Ref Range Trop T hs 19 <=22 ng/L Trop T hs delta 4 ng/L Trop T hs interp Insignificant Drugs of Abuse Screen, Urine with Reflex Confirmation Collection Time: 01/18/24 3:41 PM Result Value Ref Range Amphetamine, ur Screen Positive, presumptive (A) CutOff 500ng/mL Barbiturates, ur Not Detected CutOff 200ng/mL Benzodiazepines, ur Not Detected CutOff 100ng/mL Cannabinoids, ur Not Detected CutOff 50 ng/mL Cocaine, ur Screen Positive, presumptive (A) CutOff 150ng/mL Fentanyl, Ur Not Detected CutOff 5 ng/mL Methadone, ur Not Detected CutOff 300ng/mL Opiates, ur Not Detected CutOff 300ng/mL Oxycodone, ur Not Detected CutOff 100ng/mL Phencyclidine, ur Not Detected CutOff 25 ng/mL Urine Creatinine 60 mg/dL Troponin T high-sensitivity 6-hour Collection Time: 01/18/24 6:04 PM Result Value Ref Range Trop T hs 13 <=22 ng/L Trop T hs delta -2 ng/L Trop T hs interp Insignificant Lipid panel Collection Time: 01/18/24 7:44 PM Result Value Ref Range Cholesterol 137 30 - 199 mg/dL Triglycerides 219 (H) <=149 mg/dL HDL 35 (L) >=40 mg/dL LDL, calculated 58 <=129 mg/dL Non-HDL Cholesterol 102 mg/dL Chol/HDL ratio 4 Magnesium Collection Time: 01/18/24 7:44 PM Result Value Ref Range Magnesium 2.0 1.4 - 2.5 mg/dL Hepatitis panel, acute Blood Collection Time: 01/18/24 7:44 PM Specimen: Blood Result Value Ref Range Hep A IgM Nonreactive Nonreactive Hep B core IgM Nonreactive Nonreactive Hep C Ab Nonreactive Nonreactive HepBsAg Nonreactive Nonreactive Hemoglobin A1c Collection Time: 01/18/24 7:44 PM Result Value Ref Range Hgb A1C 6.2 (H) 4.0 - 5.6 % Estimated Average Glucose 131 mg/dL HIV 1/2 Antibody plus p24 Antigen Blood Collection Time: 01/18/24 7:44 PM Specimen: Blood Result Value Ref Range HIV 1/2 ab + p24 ag Nonreactive Nonreactive XR Chest 1 Vw Portable Result Date: 01/18/2024 Narrative: EXAM DESCRIPTION: XR CHEST 1 VIEW REASON FOR STUDY: chest pain Ambulatory to triage withc/o slipped on my sobriety yesterday morning Admits to doing cocaine and smoking meth yesterday am. States lost 15lbs since Wednesday Reports decreased PO intake. Not feeling hungry or thirsty TE CHNIQUE: PA radiographic view(s) of the chest. COMPARISON: 04/26/2019 FINDINGS: LUNGS: No focal opacity, pleural effusion, or pneumothorax. HEART/MEDIASTINUM: Cardiac silhouette normal in size. Mediastinal and hilar contours appear normal. LINES/TUBES: None. BONES: No acute osseous abnormality. IMPRESSION: No plain film abnormality evident on PA view. THIS IS AN ELECTRONICALLY VERIFIED FINAL REPORT 01/18/2024 12:32 PM - Electronically signed by Prakash Latham M.D. T: Report ID: [id number] Reading Location: [place] [address] Current Facility-Administered Medications Medication Dose Route Frequency Provider Last Rate Last Admin aspirin chewable tablet 324 mg 324 mg oral Once Sara Roach PA aspirin enteric coated tablet 81 mg 81 mg oral Daily Sara Roach PA 81 mg at 01/19/24 0855 atorvastatin (LIPITOR) tablet 80 mg 80 mg oral Nightly Sara Roach PA 80 mg at 01/18/24 2150 Carrier Fluids for Secondary Infusion - 0.9% Sodium Chloride 30 mL intravenous PRN Sara Roach PA [Held by Provider] carvediloL (COREG) tablet 12.5 mg 12.5 mg oral BID with meals (bkfst, dinner) Sara Roach PA famotidine (PEPCID) tablet 20 mg 20 mg oral Daily PRN Sara Roach PA heparin 5,000 unit/mL injection 7,500 Units 7,500 Units subcutaneous Q8H JES Sara Roach PA 7,500 Units at 01/19/24 0519 hydrOXYzine (ATARAX) tablet 50 mg 50 mg oral TID PRN Sara Roach PA loperamide (IMODIUM) capsule 2 mg 2 mg oral Q4H PRN Sara Roach PA loperamide (IMODIUM) capsule 4 mg 4 mg oral Once PRN Sara oRach PA losartan (COZAAR) tablet 50 mg 50 mg oral Daily Sara Roach PA 50 mg at 01/19/24 0855 morphine injection 2 mg 2 mg intravenous Q3H PRN Sara Roach PA nitroglycerin (NITRO-BID) 2 % ointment 0.5 inch 0.5 inch topical QID NITRATES Sara Roach PA 0.5 inch at 01/19/24 0856 nitroglycerin (NITROSTAT) sublingual tablet 0.4 mg 0.4 mg sublingual Q5 Min PRN Sara Roach PA ondansetron ODT (ZOFRAN-ODT) disintegrating tablet 4 mg 4 mg oral TID PRN Sara Roach PA Or ondansetron (ZOFRAN) injection 4 mg 4 mg intravenous TID PRN Sara Roach PA polyethylene glycol (MIRALAX) packet 17 g 17 g oral Daily PRN Sara Roach PA ramelteon (ROZEREM) tablet 8 mg 8 mg oral Nightly PRN Sara Roach PA regadenoson (LEXISCAN) 0.4 mg/5 mL injection 0.4 mg 0.4 mg intravenous Once Rudy Malave MD sodium chloride 0.9% flush 0.5-20 mL 0.5-20 mL intra-catheter Q8H JES Sara Roach PA 10 mL at01/19/24 0518 sodium chloride 0.9% flush 0.5-20 mL 0.5-20 mL intra-catheter PRN Sara Roach PA traZODone (DESYREL) tablet 50 mg 50 mg oral Nightly PRN Sara Roach PA A/P: MDM Active Problems: Chest pain Abnormal EKG CAD (coronary artery disease) Hypertension Hyperlipidemia Polysubstance abuse (CMS/HCC) (HCC) Tobacco abuse Morbid obesity (HCC) Resolved Problems: No resolved hospital problems. Assessment/plan: Chest pain: History of coronary artery disease: History of hypertension Hyperlipidemia Polysubstance abuse: Cessation advised Tobacco abuse: Smoking cessation advised Morbid obesity: Will benefit from weight loss Patient is hemodynamically stable Troponin negative so far A1c 6.2 Lipid profile: Total cholesterol 137, HDL 35, LDL 58, triglyceride 102 Continue aspirin/statin/losartan Beta-dorian is on hold Plan of echocardiogram Plan of stress test today Will follow up on further recommendation by cardiology service. Blood pressure is relatively stable 129/81, continue current dose of losartan. Low complexity: [facility] Voice recognition software [id number] Multimedia Fluency Direct was used dictate and transcribe this document. Supervisor Wet End variances may occur. Despite proofreading, typographical errors may occur. For patients or family members viewing this note through Orckestrat: This note was written as a communication tool between healthcare providers and may contain technical language, terminology and abbreviations that is difficult to interpret without advanced medical training. If you have questions or concerns regarding what is written in this note, please request to speak with the primary medical team taking care of you or your family member. Reina Bell MD 01/19/2024 11:53 AM * Tom Lemons, [facility] - 01/18/2024 7:04 PM CDT Pharmacy Medication Reconciliation Note Patient Jose Guardado is a 39 y.o. male who presents to [facility] [id number] for admission. The prior to admission home medication list was reviewed by pharmacy. Prior to Admission medications Medication Sig Start Date End Date Taking? Authorizing Provider aspirin 81 mg enteric coated tablet Take 1 tablet (81 mg total) by mouth daily Yes ProviderCarlene MD atorvastatin (LIPITOR) 80 mg tablet Take 1 tablet (80 mg total) by mouth nightly Yes ProviderCarlene MD carvediloL (COREG) 12.5 mg tablet Take 1 tablet (12.5 mg total) by mouth 2 (two) times a day with meals 11/08/23 Yes ProviderCarlene MD losartan (COZAAR) 50 mg tablet Take 1 tablet (50 mg total) by mouth daily Yes ProviderCarlene MD The patient???s home medication list has been reconciled and updated as follows: - Orders that were discontinued: Old/ orders on file - last med rec was done in 2019 - Brilinta x 2, losartan, famotidine, carvedilol 6.25mg, atorvastatin 80mg, aspirin 81mg EC, flonase - Orders that were added: All orders - losartan 50mg, aspirin 81mg, carvedilol 12.5mg, & atorvastatin 80mg - Orders that were changed (doses/frequency/formulation): None - Additional comments/recommendations: Verified w/ records available and patient at bedside AM doses taken Sources of information for this medication reconciliation include: caregiver, family member, outpatient medical record, patient, pharmacy records, and prescription fill history Tom Lemons RPh 01/18/2024 7:02 PM * Adelina Joy LCSW - 01/18/2024 2:04 PM CDT WEBMASTER met with pt in triage 2. Pt reported that he has been doing okay. WEBMASTER informed pt that WEBMASTER had been consulted regarding his recent EDGARD use. Pt reported that he had used substances on Wednesday, Wednesday, and Wednesday. Pt reported that he has been sober since yesterday at 4am. WEBMASTER praised pt for his sobriety. Pt reported that he felt guilty for using. He expressed that he had been sober for 2 years. He goes bowling on and Wednesday nights. Wednesday night he ran into people that he use to hang out with prior to getting sober. Pt reported that he has intentions of staying away from those people again. WEBMASTER inquired if it would be helpful to build a new [place] of people. Pt reported thathe has a sober [place] with his sister. Pt reported that he is ashamed and hasn't talked to his sister about it yet, although he is sure that his sister already knows. Pt reported that he feels that his guilt and the possibility of losing his job is motivation enough. WEBMASTER informed pt about the [employer] Program. Pt denied assistance. Pt reported that he had stopped using cold turkey the last time and reported that he has never been to a meeting. WEBMASTER informed pt that th PRS program and LCSWwill be there if he changes his mind. Adelina Joy LCSW 01/18/24 2:11 PM documented in this encounter H&P Notes * Sara Roach PA - 01/18/2024 6:24 PM CDT Images from the original note were not included. History and Physical Date of Service: 01/18/2024 Date of Admission:01/18/2024 Primary Care Physician: Unknown, Notinfile None CHIEF COMPLAINT: Patient is a 39 y.o. male with a PMHx significant for hyperlipidemia, hypertension, CA, cocaine andmethamphetamine abuse, tobacco abuse. Presents with worsening chest pain and dyspnea on exertion since working today HPI: Presents with complaint of chest pain on and off for the last month or more. Patient states he had not been taking anything for this. He states yesterday he snorted cocaine and methamphetamines. He states he previously been sober from this for some time. Today while at work he began experiencing chest discomfort to his mid chest. He states he also noticed dyspnea on exertion. He denies nausea, vomiting, diaphoresis. He has not noticed edema. He states he has not slept since he used both products last night. Currently he is having chest discomfort at 2/10. This feels different than when he hadhis prior CA in 2019. He does see cardiology in [place], [place] Dr. Bender History provided by patient Past Medical History: Diagnosis Date Cocaine abuse (HCC) Hyperlipidemia Hypertension Methamphetamine abuse (CMS/HCC) (HCC) CA, old 2019 Past Surgical History: Procedure Laterality Date CORONARY STENT PLACEMENT LAD 2018 (Not in a hospital admission) No Known Allergies Social History Tobacco Use Smoking status: Every Day Current packs/day: 1.50 Average packs/day: 1.5 packs/day for 23.0 years (34.5 ttl pk-yrs) Types: Cigarettes Smokeless tobacco: None Tobacco comments: refused Substance and Sexual Activity Drug use: Yes Types: Tobacco, Cocaine, Methamphetamines Comment: 1 1/2 - 2 ppd X 28 years; occasional etoh; cocaine and methamphetamines Sexual activity: Defer Alcohol Use: Not on file History reviewed. No pertinent family history. OBJECTIVE: Vitals: Arrival Vitals Temp 01/18/24 1147 36.5 ??C (97.7 ??F) Pulse 01/18/24 1147 81 Resp 01/18/24 1147 18 BP 01/18/24 1147 150/98 SpO2 01/18/24 1147 99 % Temp src 01/18/24 1147 Oral Heart Rate Source 01/18/24 1147 Pulse Oximetry Patient Position 01/18/24 1147 Sitting BP Location 01/18/24 1359 Right arm FiO2 (%) -- O2 Therapy for the past 12 hrs: O2 Therapy 01/18/24 1532 None (Room air) 01/18/24 1359 None (Room air) 01/18/24 1147 None (Room air) Most Recent : Vitals: 01/18/24 1532 01/18/24 1630 01/18/24 1700 01/18/24 1730 BP: 135/88 147/94 152/87 (!) 131/102 BP Location: Right arm Patient Position: Sitting Pulse: 73 57 58 61 Resp: 20 16 21 16 Temp: TempSrc: SpO2: 98% 99% 97% 96% Weight: Height: No intake/output data recorded. No intake/output data recorded. Physical Exam: Physical Exam Vitals and nursing note reviewed. Constitutional: General: He is not in acute distress. Appearance: He is well-developed. He is morbidly obese. HENT: Head: Normocephalic and atraumatic. Mouth/Throat: Mouth: Mucous membranes are moist. Pharynx: Oropharynx is clear. Eyes: General: No scleral icterus. Right eye: No discharge. Left eye: No discharge. Conjunctiva/sclera: Conjunctivae normal. Pupils: Pupils are equal, round, and reactive to light. Neck: Thyroid: No thyromegaly. Cardiovascular: Rate and Rhythm: Normal rate and regular rhythm. Heart sounds: Normal heart sounds. No murmur heard. No friction rub. No gallop. Pulmonary: Effort: Pulmonary effort is normal. No respiratory distress. Breath sounds: Normal breath sounds. No wheezing or rales. Chest: Chest wall: No tenderness. Abdominal: General: Bowel sounds are normal. There is no distension. Palpations: Abdomen is soft. Tenderness: There is no abdominal tenderness. There is no guarding or rebound. Hernia: No hernia is present. Musculoskeletal: General: No tenderness or deformity. Normal range of motion. Cervical back: Normal range of motion and neck supple. Right lower leg: No edema. Left lower leg: No edema. Lymphadenopathy: Cervical: No cervical adenopathy. Skin: General: Skin is warm and dry. Capillary Refill: Capillary refill takes less than 2 seconds. Findings: No rash. Neurological: Mental Status: He is alert and oriented to person, place, and time. Sensory: No sensory deficit. Psychiatric: Behavior: Behavior normal. Thought Content: Thought content normal. Judgment: Judgment normal. Lab/Radiology/Diagnostic Review: Recent Results (from the past 24 hour(s)) CBC with auto differential Collection Time: 01/18/24 12:12 PM Result Value Ref Range WBC 7.0 3.8 - 9.9 K/cumm Hgb 15.5 13.0 - 17.5 g/dL Hct 43.5 38.9 - 50.3 % Plt 169 150 - 400 K/cumm MPV 10.9 9.1 - 12.3 fL RBC 4.66 4.30 - 5.80 M/cumm MCV 93.3 81.3 - 96.4 fL MCH 33.3 27.1 - 33.3 pg MCHC 35.6 32.3 - 35.7 g/dL RDW CV 12.6 11.1 - 14.9 % RDW SD 43.3 35.7 - 48.1 fL NRBC abs 0.00 0.00 - 0.01 K/cumm Comprehensive metabolic panel Collection Time: 01/18/24 12:12 PM Result Value Ref Range Sodium 135 135 - 145 mmol/L Potassium, pl 3.9 3.3 - 4.9 mmol/L Chloride 101 97 - 110 mmol/L CO2 22 22 - 32 mmol/L Anion gap 12 2 - 15 mmol/L BUN 13 6 - 25 mg/dL Creatinine 1.10 0.80 - 1.30 mg/dL Glucose 158 70 - 199 mg/dL Calcium 9.1 8.5 - 10.3 mg/dL Bilirubin, total 0.4 0.1 - 1.2 mg/dL Protein, pl 7.5 6.5 - 8.5 g/dL Albumin 4.3 3.5 - 5.0 g/dL Alk phos 71 40 - 130 Units/L ALT 44 7 - 55 Units/L AST 41 10 - 50 Units/L Troponin T high-sensitivity series (baseline, 2hr, 4hr, 6hr) Collection Time: 01/18/24 12:12 PM Result Value Ref Range Trop T hs 15 <=22 ng/L Differential, auto Collection Time: 01/18/24 12:12 PM Result Value Ref Range Neutrophil abs 3.8 1.5 - 6.5 K/cumm Imm gran abs 0.0 0.0 - 0.1 K/cumm Lymphocyte abs 2.3 0.8 - 3.3 K/cumm Monocyte abs 0.6 0.2 - 0.8 K/cumm Eosinophil abs 0.2 0.0 - 0.5 K/cumm Basophil abs 0.1 0.0 - 0.1 K/cumm Neutrophil pct 54.5 % Imm gran pct 0.6 % Lymphocyte pct 32.5 % Monocyte pct 8.7 % Eosinophil pct 3.0 % Basophil pct 0.7 % eGFR Collection Time: 01/18/24 12:12 PM Result Value Ref Range eGFR 87 >=60 mL/min/1.73 m2 ECG 12 lead Collection Time: 01/18/24 12:13 PM Result Value Ref Range Ventricular Rate EKG/Min 67 BPM Atrial Rate 67 BPM [place]-Interval (MSEC) 146 ms QRS-Interval (MSEC) 112 ms QT-Interval (MSEC) 420 ms QTc 443 ms P [place] 10 degrees R [place] -21 degrees T [place] 85 degrees Diagnosis Normal sinus rhythm Incomplete right bundle branch block T-wave changes When compared with ECG of 27-APR-2019 06:50, Incomplete right bundle branch block is now Present Confirmed by SULTAN BANGURA M.D. ([id number]) on 01/18/2024 3:44:34 PM Troponin T high-sensitivity 2-hour Collection Time: 01/18/24 2:30 PM Result Value Ref Range Trop T hs 19 <=22 ng/L Trop T hs delta 4 ng/L Trop T hs interp Insignificant Drugs of Abuse Screen, Urine with Reflex Confirmation Collection Time: 01/18/24 3:41 PM Result Value Ref Range Amphetamine, ur Screen Positive, presumptive (A) CutOff 500ng/mL Barbiturates, ur Not Detected CutOff 200ng/mL Benzodiazepines, ur Not Detected CutOff 100ng/mL Cannabinoids, ur Not Detected CutOff 50 ng/mL Cocaine, ur Screen Positive, presumptive (A) CutOff 150ng/mL Fentanyl, Ur Not Detected CutOff 5 ng/mL Methadone, ur Not Detected CutOff 300ng/mL Opiates, ur Not Detected CutOff 300ng/mL Oxycodone, ur Not Detected CutOff 100ng/mL Phencyclidine, ur Not Detected CutOff 25 ng/mL Urine Creatinine 60 mg/dL XR Chest 1 Vw Portable Result Date: 01/18/2024 Narrative: EXAM DESCRIPTION: XR CHEST 1 VIEW REASON FOR STUDY: chest pain Ambulatory to triage withc/o slipped on my sobriety yesterday morning Admits to doing cocaine and smoking meth yesterday am. States lost 15lbs since Wednesday Reports decreased PO intake. Not feeling hungry or thirsty TE CHNIQUE: PA radiographic view(s) of the chest. COMPARISON: 04/26/2019 FINDINGS: LUNGS: No focal opacity, pleural effusion, or pneumothorax. HEART/MEDIASTINUM: Cardiac silhouette normal in size. Mediastinal and hilar contours appear normal. LINES/TUBES: None. BONES: No acute osseous abnormality. IMPRESSION: No plain film abnormality evident on PA view. THIS IS AN ELECTRONICALLY VERIFIED FINAL REPORT 01/18/2024 12:32 PM - Electronically signed by Prakash Latham M.D. LC T: Report ID: [id number] Reading Location: [place] [address] ASSESSMENT/PLAN: Active Problems: Chest pain Abnormal EKG CAD (coronary artery disease) Hypertension Hyperlipidemia Polysubstance abuse (CMS/HCC) (HCC) Tobacco abuse Morbid obesity (HCC) Resolved Problems: No resolved hospital problems. 1. Chest pain/abnormal EKG/coronary artery disease - the patient is currently having active chest pain at around a 2/10. Will give him nitro tablets up to 3 and then apply nitro paste 1 in q.i.d.. Morphine 2 mg q.3 hours p.r.n. breakthrough pain. EKG does show sinus rhythm at 67 with a new incomplete right bundle-branch block with T-wave changes compared to April 27, 2019. I sent Dr. Malave cardiology a message letting him know of the patient. Troponins thus far are 15 and 19. Patient is positive for methamphetamines and cocaine. He will be on telemetry with constant SpO2 monitoring. The ER gave him aspirin 324 mg p.o.. We will continue this 81 mg daily. Ordered 2D echo with Doppler. I will keep him NPO after midnight due to his past coronary artery disease in anticipation of a potential catheterization. EKGs p.r.n. rhythm changes or worsening chest pain. Check hemoglobin A1c, CBC, BMP in the a.m. and add on a magnesium 2. Hypertension-blood pressure currently 131/102. Anticipating that nitroglycerin will help. Patient did take his morning meds. Hold Coreg tonight in anticipation of catheterization. Can restart thattomorrow after cardiac catheterization or stress test as per Cardiology. 3. Hyperlipidemia-continue Lipitor 80 mg nightly. Check lipid 4. Polysubstance abuse-patient has used both cocaine and methamphetamines last night. I put in for Atarax 50 mg TID. p.r.n. anxiety to help with withdrawals, trazodone 50 mg q.h.s. to help him sleep.Check HIV and hepatitis panel 5. Tobacco abuse-patient does not want anything to help with tobacco withdrawals. Urged to stop smoking. Will have tobacco cessation speak with the patient 6. Morbid obesity-will have nutrition speak with the patient about weight loss given his comorbid conditions. Spoke with the patient regarding diagnosis, treatment and plan. He agrees with the plan. Prior In the event of a cardiopulmonary arrest the patient would like everything done to save his life. He is a full code Advance Care Planning ESTIMATED LENGTH OF STAY: > 2 midnights My total encounter time on 01/18/2024 was 70 minutes which was spent in the activities documented in the note. This includes time spent prior to the visit and after the visit in direct care of the patient. This time does not include time spent in any separately reportable services. Medical Decision Making Complexity: high DVT prophylaxis: Heparin PT/OT: Deferred Consult to Case Management and/or Catheter Finisher And Inspector Voice recognition software [id number] Mult[employer] Fluency Direct may have been used to dictate and transcribe this document. Supervisor Wet End variances may occur. Despite proofreading, typographical errors may occur. COOPER Argueta 01/18/2024 6:30 PM For patients or family members viewing this note through Orckestrat: This note was written as a communication tool between healthcare providers and may contain technical language, terminology and abbreviations that is difficult to interpret without advanced medical training. If you have questions or concerns regarding what is written in this note, please request to speak with the primary medical team taking care of you or your family member. Cosigned by Reno Clayton MD at 01/19/2024 12:27 PM CDT documented in this encounter Consult Notes * Rudy Malave MD - 01/19/2024 11:54 AM CDTAssociated Order(s): IP CONSULT TO CARDIOLOGY Cardiology Inpatient Consult Note Patient Id: Jose Guardado is a 39 y.o. male. MR#: [id number] HISTORY OF PRESENT ILLNESS: I am seeing the patient in consultation from Dr. Bell for recommendations regarding evaluation and management of cardiac etiologies of chest pain. 39-year-old with Coronary Artery Disease status post PCI proximal LAD 2019 in the setting of anterior STEMI with 100% thrombotic occlusion and 30% stenosis and left circumflex. Echocardiogram at that time showed preserved biventricular systolic function. Other comorbidities include hypertension, mixed hyperlipidemia, obesity, nicotine, cocaine, methamphetamine abuse. 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 Presented with chest pain, substernal, heaviness, in the setting of hypertensive urgency along withpolysubstance abuse. No recurrence after control of blood pressure. Reports compliance with single antiplatelet therapy with aspirin along with antihypertensive therapy. Denies bleeding diatheses. Norecent COVID. No recent DVT/PE PAST MEDICAL HISTORY: has a past medical history of Cocaine abuse (HCC), Hyperlipidemia, Hypertension, Methamphetamine abuse (CMS/HCC) (HCC), and CA, old. SOCIAL HISTORY: reports that he has been smoking. He has a 34.5 pack-year smoking history. He does not have any smokeless tobacco history on file. He reports current drug use. Drugs: Tobacco, Cocaine, and Methamphetamines. No alcohol history on file. FAMILY HISTORY: Father with CA in mid 30s REVIEW OF SYSTEMS Twelve systems reviewed, ROS negative except as mentioned in HPI No Known Allergies HOME MEDICATIONS : aspirin 81 mg enteric coated tablet atorvastatin (LIPITOR) 80 mg tablet carvediloL (COREG) 12.5 mg tablet losartan (COZAAR) 50 mg tablet Current Facility-Administered Medications: aspirin chewable tablet 324 mg, 324 mg, oral, Once, Sara Roach PA aspirin enteric coated tablet 81 mg, 81 mg, oral, Daily, Sara Roach PA, 81 mg at 01/19/24 0855 atorvastatin (LIPITOR) tablet 80 mg, 80 mg, oral, Nightly, Sara Roach PA, 80 mg at 01/18/24 2150 Carrier Fluids for Secondary Infusion - 0.9% Sodium Chloride, 30 mL, intravenous, PRN, Sara Roach PA [Held by Provider] carvediloL (COREG) tablet 12.5 mg, 12.5 mg, oral, BID with meals (bkfst, dinner), Sara Roach PA famotidine (PEPCID) tablet 20 mg, 20 mg, oral, Daily PRN, Sara Roach PA heparin 5,000 unit/mL injection 7,500 Units, 7,500 Units, subcutaneous, Q8H JES, Rosemary Roachi, PA, 7,500 Units at 01/19/24 0519 hydrOXYzine (ATARAX) tablet 50 mg, 50 mg, oral, TID PRN, Roach Sara, PA loperamide (IMODIUM) capsule 2 mg, 2 mg, oral, Q4H PRN, Roach, Sara, PA loperamide (IMODIUM) capsule 4 mg, 4 mg, oral, Once PRN, Roach Sara, PA losartan (COZAAR) tablet 50 mg, 50 mg, oral, Daily, Roach, Sara, PA, 50 mg at 01/19/24 0855 morphine injection 2 mg, 2 mg, intravenous, Q3H PRN, Rosemary Roachi, PA nitroglycerin (NITRO-BID) 2 % ointment 0.5 inch, 0.5 inch, topical, QID NITRATES, Rosemary Roachi,PA, 0.5 inch at 01/19/24 0856 nitroglycerin (NITROSTAT) sublingual tablet 0.4 mg, 0.4 mg, sublingual, Q5 Min PRN, Sara Roach, PA ondansetron ODT (ZOFRAN-ODT) disintegrating tablet 4 mg, 4 mg, oral, TID PRN OR ondansetron (ZOFRAN) injection 4 mg, 4 mg, intravenous, TID PRN, Rosemary Roachi, PA polyethylene glycol (MIRALAX) packet 17 g, 17 g, oral, Daily PRN, Rosemary Roachi, PA ramelteon (ROZEREM) tablet 8 mg, 8 mg, oral, Nightly PRN, Toya Sara, PA regadenoson (LEXISCAN) 0.4 mg/5 mL injection 0.4 mg, 0.4 mg, intravenous, Once, Rudy Malave MD sodium chloride 0.9% flush 0.5-20 mL, 0.5-20 mL, intra-catheter, Q8H JES, Roach, Sara, PA, 10 mL at 01/19/24 0518 sodium chloride 0.9% flush 0.5-20 mL, 0.5-20 mL, intra-catheter, PRN, Sara Roach PA traZODone (DESYREL) tablet 50 mg, 50 mg, oral, Nightly PRN, Sara Roach PA PHYSICAL EXAMINATION BP 129/81 (BP Location: Left arm, Patient Position: Lying) Pulse 58 Temp 36.5 ??C (97.7 ??F) (Oral) Resp 16 Ht 188 cm (6' 2 ) Wt (!) 141.3 kg (311 lb 8 oz) SpO2 96% BMI 39.99 kg/m?? General: No acute distress Eyes: Conjunctiva clear, no icterus ENT: External ears/nose normal Neck: Supple, nontender Respiratory: Clear to auscultation bilaterally Cardiovascular: S1-S2 normal, no murmur Gastrointestinal: soft, non-tender abdomen Extremities: no cyanosis or clubbing Musculoskeletal: no obvious joint deformities Skin: no obvious rash or bruising Psychiatric: Normal affect, oriented Neurologic: No focal deficits LABS Recent Labs Lab Units 01/18/24 1212 HEMOGLOBIN g/dL 15.5 HEMATOCRIT % 43.5 WBC K/cumm 7.0 PLATELETS K/cumm 169 Recent Labs Lab Units 01/18/24 1212 SODIUM mmol/L 135 POTASSIUM PLASMA mmol/L 3.9 CHLORIDE mmol/L 101 CO2 mmol/L 22 ANIONGAP mmol/L 12 GLUCOSE mg/dL 158 BUN SERUM mg/dL 13 CREATININE mg/dL 1.10 CALCIUM mg/dL 9.1 ALBUMIN g/dL 4.3 ALK PHOS Units/L 71 ALT Units/L 44 AST Units/L 41 BILIRUBIN TOTAL mg/dL 0.4 Diagnostics: Twelve lead EKG independently interpreted: Sinus rhythm, left axis deviation, incomplete right bundle-branch block Telemetry independently interpreted: Sinus rhythm Hs troponin: 15, 19, 13 with no significant delta change Hemoglobin A1c 6.2, HDL 35, LDL 58 Chest x-ray images independently interpreted which shows normal cardiac size, normal mediastinal width, no infiltrate ASSESSMENT: Coronary artery disease with atypical chest pain--> likely triggered by hypertensive urgency andpolysubstance abuse. Check echocardiogram, based on findings of echocardiogram, proceed with pharmacologic stress testing for ischemic risk stratification. Reviewed diagnostic sensitivity/specificity including false positives and negatives. Currently maintained on single antiplatelet therapy at home and not on ticagrelor and reasonable to continue aspirin 81 mg daily pending findings of above-mentioned cardiac testing Hypertensive urgency--> likely trigger for chest pain. Reinitiate home doses of carvedilol and losartan and monitor. Obesity--> diet/exercise for weight management. Polysubstance abuse with cocaine and methamphetamine--> lengthy discussion regarding importance of complete cessation and associated cardiovascular risk. Nicotine dependence--> cessation reinforced, declines need for pharmacotherapy. Impaired glucose tolerance--> management per primary medical service. Mixed hyperlipidemia--> High-intensity statin with atorvastatin 80 mg daily. MDM: Moderate Please feel free to contact us for any questions regarding your patient's care. Rudy Malave MD, [facility] Cardiovascular Medicine Office: [phone] This note is dictated via voice recognition software, despite proof reading typographical error arepossible. documented in this encounter Nursing Notes * Clau Tim RN - 01/19/2024 5:55 PM CDT All discharge instructions, medications, and follow up appointment reviewed with the patient at thebedside. Questions encouraged. No concerns voiced. Patient discharged to the main entrance per ambulation by this RN and accompanied home by himself as he states he drove himself here. documented in this encounter ED Notes * Carolyn Aguilera - 01/18/2024 7:10 PM CDT Received pt from Jagruti CLEMENT, alert and awake, not in distress lying comfortably on bed. Denies chest pain. Carolyn Aguilera 01/18/241934 * Srikanth Rojas MD - 01/18/2024 5:04 PM CDT Assume Care Note Please refer to previous provider's note for further details. BP 135/88 (BP Location: Right arm, Patient Position: Sitting) Pulse 73 Temp 36.5 ??C (97.7 ??F)(Oral) Resp 20 Ht 188 cm (6' 2 ) Wt (!) 143.1 kg (315 lb 7.7 oz) SpO2 98% BMI 40.50 kg/m?? ED Course: -patient signed out to me by outgoing provider pending admission for cardiac observation -patient EKG on my independent read shows normal sinus rhythm, rate 67, normal intervals, incomplete right bundle-branch block present with T-wave inversions in lateral leads, compared to previous EKG these T-wave inversions are new -on my reassessment patient currently has no complaints. Patient denies any chest pain. Patient agreeable to admission for cardiac observation -patient admitted to Medicine for cardiac observation Diagnosis: 1. Stable angina (HCC) 2. Chest pain, unspecified type Disposition: Admit to medicine Srikanth Rojas MD 01/18/242225 * Morgan Ramon PA - 01/18/2024 4:13 PM CDT CHIEF COMPLAINT: Chief Complaint Patient presents with Addiction Problem Chest Pain HPI 4:13 PM Jose Guardado is a 39 y.o. 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 Reports dyspnea as well at work. No pain at rest. Denies having had this pain previously even with previous CA. Had CA in 2019 and is s/p stent -- chart reviews shows 100% occlusion of LAD. Pt denies having complications since. Sees cardio yearly in [place], [place]. Pt also reporting relapse yesterday with snorting cocaine and meth. Declines substance abuse program here. No n/v/, abd pain, fever, cough/cold. Father has also had multiple MIs starting at age 35. Pt currently pain-free. 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 History provided by patient PCP: Unknown, Notinfile PAST MEDICAL HISTORY No past medical history on file. PAST SURGICAL HISTORY No past surgical history on file. FAMILY HISTORY No family history on file. MEDICATIONS GIVEN IN THE ED Medications aspirin chewable tablet 324 mg (324 mg oral Not Given 01/18/24 1212) CURRENT HOME MEDICATIONS Current Facility-Administered Medications: aspirin chewable tablet 324 mg, 324 mg, oral, Once, Fe Root MD Current Outpatient Medications: aspirin 81 mg enteric coated tablet, Take 1 tablet (81 mg total) by mouth daily, Disp: 30 tablet, Rfl: 11 atorvastatin (LIPITOR) 80 mg tablet, Take 1 tablet (80 mg total) by mouth nightly, Disp: 90 tablet,Rfl: 3 carvedilol (COREG) 6.25 mg tablet, Take 1 tablet (6.25 mg total) by mouth 2 (two) times a day, Disp: 180 tablet, Rfl: 3 famotidine (PEPCID) 20 mg tablet, Take 1 tablet (20 mg total) by mouth daily as needed for indigestion or heartburn, Disp: 30 tablet, Rfl: 11 losartan (COZAAR) 50 mg tablet, Take 1 tablet (50 mg total) by mouth daily, Disp: 90 tablet, Rfl: 3 ticagrelor (BRILINTA) 90 mg tablet, Take 1 tablet (90 mg total) by mouth 2 (two) times a day, Disp:60 tablet, Rfl: 8 ALLERGIES No Known Allergies SOCIAL HISTORY Social History Tobacco Use Smoking status: Every Day Current packs/day: 1.50 Average packs/day: 1.5 packs/day for 23.0 years (34.5 ttl pk-yrs) Types: Cigarettes Smokeless tobacco: Not on file Tobacco comments: refused Substance and Sexual Activity Drug use: Never Sexual activity: Defer Alcohol Use: Not on file PHYSICAL EXAM TRIAGE VITAL SIGNS: ED Triage Vitals Temp Pulse Resp BP SpO2 01/18/24 1147 01/18/24 1147 01/18/24 1147 01/18/24 1147 01/18/24 1147 36.5 ??C (97.7 ??F) 81 18 150/98 99 % Temp src Heart Rate Source Patient Position BP Location FiO2 (%) 01/18/24 1147 01/18/24 1147 01/18/24 1147 01/18/24 1359 -- Oral Pulse Oximetry Sitting Right arm Height Height Method Weight Weight Method 01/18/24 1147 01/18/24 1147 01/18/24 1147 01/18/24 1147 1.88 m (6' 2 ) Stated (!) 143.1 kg (315 lb 7.7 oz) Standing scale Physical Exam Vitals and nursing note reviewed. Constitutional: General: He is not in acute distress. Appearance: Normal appearance. He is not ill-appearing or toxic-appearing. HENT: Head: Normocephalic and atraumatic. Right Ear: External ear normal. Left Ear: External ear normal. Nose: Nose normal. Mouth/Throat: Mouth: Mucous membranes are moist. Eyes: Extraocular Movements: Extraocular movements intact. Pupils: Pupils are equal, round, and reactive to light. Cardiovascular: Rate and Rhythm: Normal rate and regular rhythm. Heart sounds: Normal heart sounds. No murmur heard. No friction rub. No gallop. Pulmonary: Effort: Pulmonary effort is normal. Breath sounds: Normal breath sounds. Abdominal: General: Bowel sounds are normal. There is no distension. Palpations: Abdomen is soft. There is no mass. Tenderness: There is no abdominal tenderness. There is no guarding. Musculoskeletal: General: No deformity. Normal range of motion. Skin: General: Skin is warm and dry. Capillary Refill: Capillary refill takes less than 2 seconds. Neurological: General: No focal deficit present. Mental Status: He is alert and oriented to person, place, and time. Psychiatric: Mood and Affect: Mood normal. LABS Labs Reviewed DRUGS OF ABUSE SCREEN, URINE WITH REFLEX CONFIRMATION - Abnormal Result Value Amphetamine, ur Screen Positive, presumptive (*) Barbiturates, ur Not Detected Benzodiazepines, ur Not Detected Cannabinoids, ur Not Detected Cocaine, ur Screen Positive, presumptive (*) Fentanyl, Ur Not Detected Methadone, ur Not Detected Opiates, ur Not Detected Oxycodone, ur Not Detected Phencyclidine, ur Not Detected Urine Creatinine 60 Narrative: Drug of Abuse screening is performed by immunoassay for medical purposes only. This is not to be used for Pain Management purposes. If Detected, confirmation testing will be performed for Amphetamines, Cocaine, Fentanyl, Methadone, Opiates, Oxycodone or Phencyclidine. CBC WITH AUTO DIFFERENTIAL WBC 7.0 Hgb 15.5 Hct 43.5 Plt 169 MPV 10.9 RBC 4.66 MCV 93.3 MCH 33.3 MCHC 35.6 RDW CV 12.6 RDW SD 43.3 NRBC abs 0.00 COMPREHENSIVE METABOLIC PANEL Sodium 135 Potassium, pl 3.9 Chloride 101 CO2 22 Anion gap 12 BUN 13 Creatinine 1.10 Glucose 158 Calcium 9.1 Bilirubin, total 0.4 Protein, pl 7.5 Albumin 4.3 Alk phos 71 ALT 44 AST 41 TROPONIN T HIGH-SENSITIVITY SERIES (BASELINE, 2HR, 4HR, 6HR) Trop T hs 15 DIFFERENTIAL AUTO Neutrophil abs 3.8 Imm gran abs 0.0 Lymphocyte abs 2.3 Monocyte abs 0.6 Eosinophil abs 0.2 Basophil abs 0.1 Neutrophil pct 54.5 Imm gran pct 0.6 Lymphocyte pct 32.5 Monocyte pct 8.7 Eosinophil pct 3.0 Basophil pct 0.7 TROPONIN T HIGH-SENSITIVITY 2-HOUR Trop T hs 19 Trop T hs delta 4 Trop T hs interp Insignificant EGFR eGFR 87 TROPONIN T HIGH-SENSITIVITY 4-HR TROPONIN T HIGH-SENSITIVITY 6-HOUR RADIOLOGY XR Chest 1 Vw Portable Result Date: 01/18/2024 Narrative: EXAM DESCRIPTION: XR CHEST 1 VIEW REASON FOR STUDY: chest pain Ambulatory to triage withc/o slipped on my sobriety yesterday morning Admits to doing cocaine and smoking meth yesterday am. States lost 15lbs since Wednesday Reports decreased PO intake. Not feeling hungry or thirsty TE CHNIQUE: PA radiographic view(s) of the chest. COMPARISON: 04/26/2019 FINDINGS: LUNGS: No focal opacity, pleural effusion, or pneumothorax. HEART/MEDIASTINUM: Cardiac silhouette normal in size. Mediastinal and hilar contours appear normal. LINES/TUBES: None. BONES: No acute osseous abnormality. IMPRESSION: No plain film abnormality evident on PA view. THIS IS AN ELECTRONICALLY VERIFIED FINAL REPORT 01/18/2024 12:32 PM - Electronically signed by Prakash GAONA T: Report ID: [id number] Reading Location: [place] [address] ED COURSE/MEDICAL DECISION MAKING Differential diagnosis included but not limited to ACS, stable angina, pneumonia, viral syndrome Patient's medical records were reviewed. 1600 Call out to hospitalist. [address] Rojas, pending admission. Procedures FINAL IMPRESSION Stable angina (HCC) Chest pain, unspecified type PATIENT INSTRUCTED TO FOLLOW UP No follow-up provider specified. DISCHARGE MEDICATIONS Your medication list ASK your doctor about these medications Instructions Last Dose Given Next Dose Due aspirin 81 mg enteric coated tablet 81 mg, oral, Daily atorvastatin 80 mg tablet Commonly known as: LIPITOR 80 mg, oral, Nightly carvediloL 6.25 mg tablet Commonly known as: COREG 6.25 mg, oral, 2 times daily famotidine 20 mg tablet Commonly known as: PEPCID 20 mg, oral, Daily PRN losartan 50 mg tablet Commonly known as: COZAAR 50 mg, oral, Daily ticagrelor 90 mg tablet Commonly known as: BRILINTA 90 mg, oral, 2 times daily This examination was transcribed using the [employer] voice recognition system without human cold header. In an effort to expedite patient care, this report has not been adjusted for typographical, grammatical, and syntax by a trained director global medical affairs. Morgan Ramon PA 01/18/244 Cosigned by Srikanth Rojas MD at 01/18/2024 11:02 PM CDT Associated attestation - Srikanth Rojas MD - 01/18/2024 11:02 PM CDT ED Attestation I was present in the emergency department for consultation on this patient. This patient was presented to me and I agree with the assessment and plan. * Suzie Gongora RN - 01/18/2024 12:05 PM CDT Ambulatory to triage with c/o slipped on my sobriety yesterday morning Admits to doing cocaine and smoking meth yesterday am. States lost 15lbs since Wednesday Reports decreased PO intake. Not feeling hungry or thirsty Denies abd pain/Nausea/vomiting Now endorsing chest pain at this time Previous CA 5 years ago AAOX4. NAD. RR E/NL documented in this encounter Miscellaneous Notes * Plan of Care - Jolly Perez RN - 01/18/2024 9:42 PM CDT Problem: Cardiovascular Goal: Maintains optimal cardiac output and hemodynamic stability Outcome: Progressing Flowsheets (Taken 01/18/20242139) Maintain optimal cardiac output and hemodynamic Stability: Monitor vital signs, rhythm, and trends Monitor for bleeding, hypotension and signs of decreased cardiac output Administer and titrate ordered vasoactive medications to optimize hemodynamic stability Assess quality of pulses, skin color and temperature Assess for signs of decreased coronary artery perfusion - ex. angina Goal: Absence of cardiac dysrhythmias or at baseline Outcome: Progressing Flowsheets (Taken 01/18/20242139) Absence of cardiac dysrhythmias or at baseline: Continuous cardiac monitoring, monitor vital signs, obtain 12 lead EKG if indicated Administer antiarrhythmic and heart rate control medications as ordered Initiate emergency measures for life threatening arrhythmias Monitor electrolytes and administer replacement therapy as ordered Goal: Cardiovascular status will improve Outcome: Progressing Flowsheets (Taken 01/18/20242139) Cardiovascular status will improve: Monitor for signs and symptoms of chest pain Monitor signs and symptoms of heart failure Instruct immediate reporting of any chest discomfort or pain Monitor electrocardiogram Goals: Clinical Goals for the Shift: vss, pain Summary: discussed with patient documented in this encounter Plan of Treatment Pending Results Name Type Priority Associated Diagnoses Date /Time HIV 1/2 Antibody plus p24 Antigen Blood Microbiology Routine 01/18/2024 7:4 4 PM CDT Scheduled Orders Name Type Priority Associated Diagnoses Orde r Schedule ECG 12 lead ECG Routine As needed for 2 Occurrences starting 01/18/2024 HIV 1/2 Antibody plus p24 Antigen Microbiology Routine Once for 1 Occu rrences starting 01/18/2024 until 01/18/2024 documented as of this encounter Procedures Procedure Name Priority Date/Time Associated Diagnosis Comments NM MPI SPECT (REST AND/OR STRESS) MULTIPLE STUDIES IP Routine 01/19/2024 1:04 PM CDT STRESS TEST FOR DUAL READ IP Routine 01/19/2024 1:04 PM CDT TRANSTHORACIC ECHO (TTE) COMPLETE W DOPPLER/CF W CONTRAST Routine 01/19/2024 9:24 AM CDT HIV 1/2 ANTIBODY PLUS P24 ANTIGEN Routine 01/18/2024 7:44 PM CDT HEPATITIS PANEL, ACUTE Routine 01/18/2024 7:44 PM CDT MAGNESIUM Add-On 01/18/2024 7:44 PM CDT HEMOGLOBIN A1C Add-On 01/18/2024 7:44 PM CDT LIPID PANEL Routine 01/18/2024 7:44 PM CDT TROPONIN T HIGH-SENSITIVITY 6-HOUR Timed 01/18/2024 6:04 PM CDT DRUGS OF ABUSE SCREEN, URINE WITH REFLEX CONFIRMATION STAT 01/18/2024 3:41 PM CDT AMPHETAMINE, URINE, CONFIRMATION STAT 01/18/2024 3:41 PM CDT COCAINE METABOLITE, URINE, CONFIRMATION STAT 01/18/2024 3:41 PM CDT TROPONIN T HIGH-SENSITIVITY 2-HOUR Timed 01/18/2024 2:30 PM CDT XR CHEST 1 VIEW ED 01/18/2024 12:28 PM CDT ECG 12-LEAD STAT 01/18/2024 12:13 PM CDT TROPONIN T HIGH-SENSITIVITY SERIES (BASELINE, 2HR, 4HR, 6HR) STAT 01/18/2024 12:12 PM CDT EGFR STAT 01/18/2024 12:12 PM CDT DIFFERENTIAL AUTO STAT 01/18/2024 12: 12 PM CDT CBC WITH AUTO DIFFERENTIAL STAT 01/18/2024 12:12 PM CDT COMPREHENSIVE METABOLIC PANEL STAT 01/18/2024 12:12 PM CDT documented in this encounter Results * Stress Test for Myocardial Perfusion (01/19/2024 1:04 PM CDT) Anatomical Region Laterality Modality Nuclear Medicine Narrative 01/19/2024 11:54 AM CDT LEXISCAN NUCLEAR STRESS TEST CLINICAL INDICATION: Coronary Artery Disease, chest pain, hypertensive urgency STUDY DESCRIPTION: After reviewing benefits, risks and alternatives and obtaining informed consent, patient was infused with Lexiscan per protocol. ??This was followed by Myoview and fluid bolus. ??Resting heart rate was 63 bpm. ?? Heart rate at the end of the test was 98 bpm. ??Initial blood pressure 131/51 mm Hg. ??Blood pressure at the end of the test was 118/71 mm Hg. ?? Patient experienced expected Lexiscan side effects. ??Test was terminated after protocol was complete. Test supervised by Rudy Malave MD. EKG FINDINGS: Resting EKG shows sinus rhythm with left axis deviation and incomplete right bundle-branch block. ??There were no EKG changes diagnostic for ischemia post Lexiscan infusion. ??There were no clinically significant arrhythmias CONCLUSION: EKG portion of Lexiscan Myoview is negative for inducible ischemia. No clinically significant arrhythmias noted. Nuclear medicine portion of this test will be dictated separately us Rudy Malave MD CV STRESS PROCEDURES Final Resul t * NM MPI SPECT (Rest and/or Stress) Multiple Studies (01/19/2024 1:04 PM CDT) Anatomical Region Laterality Modality Body N/A Nuclear Medicine 01/19/2024 1:30 PM CDT Narrative 01/19/2024 1:33 PM CDT EXAM DESCRIPTION: ?? NM MPI SPECT (REST AND/OR STRESS) MULTIPLE STUDIES REASON FOR STUDY: Chest pain. RADIOPHARMACEUTICAL: Rest: ??11 ??mCi Tc-99m tetrofosmin Pharmacologic Stress: ??33 ??mCi Tc-99m tetrofosmin Injection site: ??Left antecubital vein ??IV site TECHNIQUE: Standard myocardial perfusion SPECT images were obtained after resting tracer injection. Subsequently, an intravenous infusion of 0.4 mg Lexiscan was performed. ??Standard myocardial perfusion images were obtained after tracer injection at the peak effect of the drug. COMPARISON: None FINDINGS: Image quality is adequate at rest and adequate at stress. There are no perfusion abnormalities. The left ventricular cavity size is ??top-normal . Gated tomographic images demonstrate normal wall motion and wall thickening with a left ventricular ejection fraction of ??70 % poststress (normal >45%). ?? IMPRESSION: Normal myocardial perfusion study. ??No scintigraphic evidence of myocardial ischemia. ?? Normal left ventricular ejection fraction of ??70 % poststress. Normal wall motion. ?? Prominence of the left ventricle. THIS IS AN ELECTRONICALLY VERIFIED FINAL REPORT 01/19/2024 1:33 PM - Electronically signed by ??Chris CHANCE D: ??01/19/2024 1:33 PM T: Report ID: [id number] Reading Location: ??[id number] Procedure Note Chris Chinchilla MD - 01/19/2024 EXAM DESCRIPTION: NM MPI SPECT (REST AND/OR STRESS) MULTIPLE STUDIES REASON FOR STUDY: Chest pain. RADIOPHARMACEUTICAL: Rest: 11 mCi Tc-99m tetrofosmin Pharmacologic Stress: 33 mCi Tc-99m tetrofosmin Injection site: Left antecubital vein IV site TECHNIQUE: Standard myocardial perfusion SPECT images were obtained after resting tracer injection. Subsequently, an intravenous infusion of 0.4 mg Lexiscan was performed. Standard myocardial perfusion images wereobtained after tracer injection at the peak effect of the drug. COMPARISON: None FINDINGS: Image quality is adequate at rest and adequate at stress. There are no perfusion abnormalities. The left ventricular cavity size is top-normal . Gated tomographic images demonstrate normal wall motion and wallthickening with a left ventricular ejection fraction of 70 % poststress (normal>45%). IMPRESSION: Normal myocardial perfusion study. No scintigraphic evidence ofmyocardial ischemia. Normal left ventricular ejection fraction of 70 % poststress. Normal wall motion. Prominence of the left ventricle. THIS IS AN ELECTRONICALLY VERIFIED FINAL REPORT 01/19/2024 1:33 PM - Electronically signed by Chris Chinchilla M.D. LB T: Report ID: [id number] Reading Location: [id number] us Rudy Malave MD IMG NM PROCEDURES Final Result * TRANSTHORACIC ECHO (TTE) COMPLETE W DOPPLER/CF W CONTRAST (01/19/2024 9:24 AM CDT) Anatomical Region Laterality Modality Ultrasound 01/19/2024 9:24 AM CDT Narrative 01/19/2024 1:19 PM CDT ? Adult Echocardiogram + ----- + :Name: SUMAJOSE ??Study Date: 01/19/2024 ?Status: MHB ?: : ?Patient Location: [facility] 2 NE^[id number]^MHBHeight: 74 in ?: : ?Weight: 311 lbBP: 129/69 mmHg: :: 1985 ? Gender: Male ?BSA: 2.6 m2 ?: :Reason For Study: chest pain ? : :Ordering Physician: ?: :ROACH, SARA ? : : ? : :Performed By: Dipti ?: :MATY Pickard ?: + ----- + Procedure A two-dimensional transthoracic echocardiogram with color flow and Doppler was performed. Left Ventricle The left ventricle is normal in size. There is normal left ventricular wall thickness. Left ventricular systolic function is normal. Ejection Fraction = 60-65%. No obvious regional wall motion abnormalities noted. Right Ventricle The right ventricle is normal size. The right ventricular systolic function is normal. Atria The left atrial size is normal. Right atrial size is normal. There is no Doppler evidence for an atrial septal defect. Mitral Valve The mitral valve leaflets appear normal. There is no evidence of stenosis, fluttering, or prolapse. There is no mitral valve stenosis. There is trace mitral regurgitation. Tricuspid Valve The tricuspid valve is normal. There is no tricuspid stenosis. There is trace to mild tricuspid regurgitation. Right ventricular systolic pressure is normal. Aortic Valve The aortic valve is normal in structure and function. No aortic stenosis . No aortic regurgitation is present. Pulmonic Valve The pulmonic valve is not well visualized. There is no pulmonic valvular stenosis. Trace pulmonic valvular regurgitation. Great Vessels The aortic root is normal size. Normal right heart pressures. Pericardium There is no pericardial effusion. Diastology E/E prime ratio is 8 -15 which is in the indeterminate zone. Interpretation Summary Ejection Fraction = 60-65%. The right ventricular systolic function is normal. Right ventricular systolic pressure is normal. There is no pericardial effusion. E/E prime ratio is 8 -15 which is in the indeterminate zone. + + :Measurements with Normals ?: : ?(0.6-1.2 ?LVIDd: ?(3.5-5.7 ?? Ao root diam: ?(2.0-3.7 ?? : :IVSd: 1.2 cmcm) ? 5.4 cm ?cm) ?3.9 cm ? cm) ?: :LVPWd: ?(0.6-1.1 ?LVIDs: ?(3.1-4.6 ?? LA dimension: ?(1.9-4.0 ?? : :1.1 cm ?cm) ? 3.2 cm ?cm) ?3.6 cm ? cm) ?: + + MMode/2D Measurements & Calculations FS: 41.0 % ?Ao root area: 11.9 cm2 ? LVOT diam: 2.3 cm EDV(Teich): 142.5 ml ? LVOT area: 4.2 cm2 ESV(Teich): 41.0 ml Doppler Measurements & Calculations MV E max renaldo: ? MV dec time: ?Ao V2 max: ? LV V1 max P.3 cm/sec ? 0.25 sec ?137.0 cm/sec ? 5.9 mmHg MV A max renaldo: ? Ao max P.5 mmHgLV V1 max: 52.3 cm/sec ? LILIYA(V,D): 3.7 cm2 ??121.0 cm/sec MV E/A: 1.5 ? TV V2 max: ?PA V2 max: ?RV V1 max: ? RAP systole: 55.4 cm/sec ? 115.0 cm/sec ?72.8 cm/sec ?3.0 mmHg TV max P.2 mmHg PA max P.3 mmHg Electronically signed by: Rudy Malave MD 01/19/2024 01:19 PM Procedure Note Rudy Malave MD - 01/19/2024 Adult Echocardiogram + ----- + :Name: JOSE GUARDADO Study Date: 01/19/2024Status: MHB : : Patient Location: [address]^[id number]^MHBHeight: 74 in : : : 311 lbBP: 129/69 mmHg: :: 1985 Gender: MaleBSA: 2.6 m2 : :Reason For Study: chest pain: :Ordering Physician:: :SARA ROACH: :: :Performed By: Dipti: :MATY Pickard: + ----- + Procedure A two-dimensional transthoracic echocardiogram with color flow and Dopplerwas performed. Left Ventricle The left ventricle is normal in size. There is normal left ventricularwall thickness. Left ventricular systolic function is normal. Ejection Fraction= 60-65%. No obvious regional wall motion abnormalities noted. Right Ventricle The right ventricle is normal size. The right ventricular systolicfunction is normal. Atria The left atrial size is normal. Right atrial size is normal. There is no Doppler evidence for an atrial septal defect. Mitral Valve The mitral valve leaflets appear normal. There is no evidence ofstenosis, fluttering, or prolapse. There is no mitral valve stenosis. There istrace mitral regurgitation. Tricuspid Valve The tricuspid valve is normal. There is no tricuspid stenosis. There istrace to mild tricuspid regurgitation. Right ventricular systolic pressure is normal. Aortic Valve The aortic valve is normal in structure and function. No aortic stenosis .No aortic regurgitation is present. Pulmonic Valve The pulmonic valve is not well visualized. There is no pulmonic valvular stenosis. Trace pulmonic valvular regurgitation. Great Vessels The aortic root is normal size. Normal right heart pressures. Pericardium There is no pericardial effusion. Diastology E/E prime ratio is 8 -15 which is in the indeterminate zone. Interpretation Summary Ejection Fraction = 60-65%. The right ventricular systolic function is normal. Right ventricular systolic pressure is normal. There is no pericardial effusion. E/E prime ratio is 8 -15 which is in the indeterminate zone. + + :Measurements with Normals: : (0.6-1.2 LVIDd: (3.5-5.7 Ao root diam:(2.0-3.7 : :IVSd: 1.2 cmcm) 5.4 cm cm) 3.9 cm cm): :LVPWd: (0.6-1.1 LVIDs: (3.1-4.6 LA dimension:(1.9-4.0 : :1.1 cm cm) 3.2 cm cm) 3.6 cm cm): + + MMode/2D Measurements & Calculations FS: 41.0 % Ao root area: 11.9 cm2 LVOT diam: 2.3 cm EDV(Teich): 142.5 ml LVOT area: 4.2cm2 ESV(Teich): 41.0 ml Doppler Measurements & Calculations MV E max renaldo: MV dec time: Ao V2 max: LV V1 max P.3 cm/sec 0.25 sec 137.0 cm/sec 5.9 mmHg MV A max renaldo: Ao max P.5 mmHgLV V1 max: 52.3 cm/sec LILIYA(V,D): 3.7 cm2 121.0 cm/sec MV E/A: 1.5 TV V2 max: PA V2 max: RV V1 max: RAP systole: 55.4 cm/sec 115.0 cm/sec 72.8 cm/sec 3.0 mmHg TV max P.2 mmHg PA max P.3 mmHg Electronically signed by: Rudy Malave MD 01/19/2024 01:19 PM us Sara GAMBOA CV ECHO PROCEDURES Final Resu lt * HIV 1/2 Antibody plus p24 Antigen Blood (01/18/2024 7:44 PM CDT) HIV 1/2 ab + p24 ag Nonreactive Nonreactive Comment:Nonreactive for HIV- 1 antigen and HIV-1/HIV-2 antibodies. No laboratory evidence of HIV infection. If acute HIV infection is suspected, consider testing for HIV-1 RNA. Current interpretive data was last revised on 22. Blood 01/18/2024 7:44 PM CDT 01/18/2024 7:47 PM CDT Reno Clayton MD LAB MICROBIOLOGY - GENERAL OR DERABLES Final Result Performing Organization Address [facility] de Phone Number [address] [address] * (ABNORMAL) Hemoglobin A1c (01/18/2024 7:44 PM CDT) [facility] Hgb A1C 6.2(H) 4.0 - 5.6 % Estimated Average Glucose 131 mg/dL [facility] Comment: The ADA recommends reporting an estimated Average Glucose (eAG) with all Hemoglobin A1c results using the equation derived from a study of 507 normal and diabetic adults. ??Minority populations were underrepresented and children were not included. ?? (Diabetes Care 31:1727-2715, 2008). ??The eAG is not equivalent to a fasting glucose. Blood 01/18/2024 7:44 PM CDT 01/18/2024 7:47 PM CDT Sara GAMBOA LAB BLOOD ORDERABLES Final Re sult Performing Organization Address [facility] de Phone Number [facility] [address] [place] [address] * Hepatitis panel, acute Blood (01/18/2024 7:44 PM CDT) [facility] Hep A IgM Nonreactive Nonreactive Comment: Interpretive Data: If Hep A IgM Ab is reported as Equivocal, a new sample should be drawn in two weeks for testing. Current interpretive data was last revised on 19. Hep B core IgM Nonreactive Nonreactive [facility] Comment: Interpretive Data If HepB Core IgM Ab is reported as Equivocal, a new sample should be drawn in two weeks for testing. Current interpretive data was last revised on 19. Hep C Ab Nonreactive Nonreactive [facility] Comment: Antibodies to HCV not detected. Does [...] last revised on 2019. HepBsAg Nonreactive Nonreactive [facility] Blood 01/18/2024 7:44 PM CDT 01/18/2024 7:47 PM CDT Sara GAMBOA LAB MICROBIOLOGY - GENERAL OR DERABLES Final Result Performing Organization Address [facility] de Phone Number [address] [place] [address] * Magnesium (01/18/2024 7:44 PM CDT) Pathologist [facility] Magnesium 2.0 1.4 - 2.5 mg/dL Blood 01/18/2024 7:44 PM CDT 01/18/2024 7:47 PM CDT Sara GAMBOA LAB BLOOD ORDERABLES Final Re sult Performing Organization Address [facility] Co de Phone Number [address] [place] [address] * (ABNORMAL) Lipid panel (01/18/2024 7:44 PM CDT) Pathologist [facility] Cholesterol 137 30 - 199 mg/dL Comment: Interpretive Data Ages < or = [...] Data was last revised on 2018. Triglycerides 219(H) <=149 mg/dL [place] Comment: Interpretive Data Ages < or = [...] Data was last revised on 2018. HDL 35(L) >=40 mg/dL [place] Comment: Interpretive Data Ages < or = [...] was last revised on 2018. LDL, calculated 58 <=129 mg/dL [place] Comment: Interpretive Data Ages < or = [...] was last revised on 2018. Non-HDL Cholesterol 102 mg/dL [place] Comment: Interpretive Data Ages < or = [...] last revised on 2018. Chol/HDL ratio 4 [place] Blood 01/18/2024 7:44 PM CDT 01/18/2024 7:47 PM CDT us Sara GAMBOA LAB BLOOD ORDERABLES Final Re sult Performing Organization Address City/[facility]/ZIP Co de Phone Number [id number] [address] * Troponin T high-sensitivity 6-hour (01/18/2024 6:04 PM CDT) Pathologist [facility] Trop T hs 13 <=22 ng/L Comment: Interpretive Data For further hscTnT resources including the diagnostic algorithm and an aid in interpretation, copy and paste this link: https://nrl.testcatalog.org/show/hsTrop Current Interpretive Data last revised 2020. Trop T hs delta -2 ng/L [facility] Trop T hs interp Insignificant [facility] Blood 01/18/2024 6:04 PM CDT 01/18/2024 6:14 PM CDT Fe Root MD LAB BLOOD ORDERABLES F inal Result Performing Organization Address [facility] Co de Phone Number [id number] [address] * Cocaine Confirmation, Urine (01/18/2024 3:41 PM CDT) Pathologist [facility] Cocaine Metabolite (BEG) Conf, Ur Confirmed Positive CutOff 100ng/mL Comment: Interpretive Data This test detects the presence or absence of drug compounds using LC Tandem mass spectrometry. While this test is highly specific, false positive and false negative results may occur in very rare circumstances. Contact the laboratory for consultation, if needed. Performance characteristics were determined by the [facility] in a manner consistent with CLIA requirement and has not been cleared or approved by the U.S. Food and Drug Administration. Current interpretive data was last revised on 2020. Testing performed by: [facility], [address] [facility], [place]., [address] Urine 01/18/2024 3:41 PM CDT 01/18/2024 5:49 PM CDT Morgan GAMBOA LAB URINE ORDERABLES Ayse emerson Result [place] [address] [facility] [place] [address] * Amphetamine Confirmation, Urine (01/18/2024 3:41 PM CDT) Amphetamine Conf, Ur Confirmed Positive CutOff 150ng/mL Comment:Testing performed by : [facility], [address] [place]., [address] Methamphetamine Conf, Ur Confirmed Positive CutOff 150ng/mL [place] Comment:Testing performed by : [facility], [address] [place]., [address] MDA Conf, Ur Does Not Confirm CutOff 150ng/mL [place] Comment:Testing performed by : [facility], [address] [place]., [address] MDMA Conf, Ur Does Not Confirm CutOff 50 ng/mL [place] Comment:Testing performed by : [facility], [address] [place]., [address] MDEA Conf, Ur Does Not Confirm CutOff 150ng/mL [place] Comment:Testing performed by : [facility], [address] [place]., [address] MBDB Conf, Ur Does Not Confirm CutOff 150ng/mL [place] Comment: Interpretive Data This test detects the presence or absence of drug compounds using LC Tandem mass spectrometry. While this test is highly specific, false positive and false negative results may occur in very rare circumstances. Contact the laboratory for consultation, if needed. Performance characteristics were determined by the [facility] in a manner consistent with CLIA requirement and has not been cleared or approved by the U.S. Food and Drug Administration. Current interpretive data was last revised on 2020. Testing performed by: [facility], [address] [place]., [address] Urine 01/18/2024 3:41 PM CDT 01/18/2024 5:49 PM CDT us Morgan GAMBOA LAB URINE ORDERABLES Ayse emerson Result [place] [address] [facility] [place] [address] * (ABNORMAL) Drugs of Abuse Screen, Urine with Reflex Confirmation (01/18/2024 3:41 PM CDT) Pathologist [facility] Amphetamine, ur Screen Positive, presumptive (A) CutOff 500ng/mL Comment: Interpretive Data - Amphetamines: ??Samples containing greater than 500 ng/mL d-methamphetamine ??or other cross-reacting amphetamine compounds are reported as positive. ??Amphetamine immunoassays are subject to significant false positive rates due to cross-reactivity of non-amphetamine drugs. Confirmatory testing required for definitive results. Current Interpretive Data was last reviewed 2023. Barbiturates, ur Not Detected CutOff 200ng/mL [facility] Comment: Interpretive Data - Barbiturates: ??Samples containing greater than 200 ng/mL secobarbital or other cross-reacting barbiturate compounds are reported as positive. ??False positive and false negative results are possible. Confirmatory testing required for definitive results. Current Interpretive Data was last reviewed 2023. Benzodiazepines, ur Not Detected CutOff 100ng/mL [facility] Comment: Interpretive Data - Benzodiazepines: ??Samples containing greater than 100 ng/mL nordiazepam or other cross-reacting compounds are reported as positive. False positive and false negative results are possible. Confirmatory testing required for definitive results. Current Interpretive Data was last reviewed 2023. Cannabinoids, ur Not Detected CutOff 50 ng/mL [facility] Comment: Interpretive Data - Cannabinoids: ??Samples containing greater than 50 ng/mL delta-9 THC -COOH or other cross-reacting compounds are reported as positive. ??False positive and false negative results are possible. ??Confirmatory testing required for definitive results. Current Interpretive Data was last reviewed 2023. Cocaine, ur Screen Positive, presumptive (A) CutOff 150ng/mL [facility] Comment: Interpretive Data - Cocaine: ??Samples containing greater than 150 ng/mL benzoylecgonine or other cross-reacting compounds are reported as positive. False positive and false negative results are possible. Confirmatory testing required for definitive results. Current Interpretive Data was last reviewed 2023. Fentanyl, Ur Not Detected CutOff 5 ng/mL [facility] Comment: Interpretive Data - Fentanyl: ?? Samples containing greater than 5 ng/mL norfentanyl, fentanyl, or other cross-reacting fentanyl compounds are reported as positive. False positive and false negative results are possible. Confirmatory testing required for definitive results. Current Interpretive Data was last reviewed 2023. Methadone, ur Not Detected CutOff 300ng/mL [facility] Comment: Interpretive Data - Methadone: ??Samples containing greater than 300 ng/mL d,l-methadone or other cross-reacting compounds are reported as positive. ??False positive and false negative results are possible. Confirmatory testing required for definitive results. Current Interpretive Data was last reviewed 2023. Opiates, ur Not Detected CutOff 300ng/mL [facility] Comment: Interpretive Data - Opiates: ??Samples containing greater than 300 ng/mL morphine or other cross-reacting compounds are reported as positive. ??False positive and false negative results are possible. Confirmatory testing required for definitive results. Current Interpretive Data was last reviewed 2023. Oxycodone, ur Not Detected CutOff 100ng/mL [facility] Comment: Interpretive Data - Oxycodone: ??Samples containing greater than 100 ng/mL oxycodone or other cross-reacting compounds are reported as ??positive. ??False positive and false negative results are possible. Confirmatory testing required for definitive results. Current Interpretive Data was last reviewed 2023. Phencyclidine, ur Not Detected CutOff 25 ng/mL [facility] Comment: Interpretive Data - Phencyclidine: ??Samples containing greater than 25 ng/mL phencyclidine or other cross-reacting compounds are reported as positive. ??False positive and false negative results are possible. Confirmatory testing required for definitive results. Current Interpretive Data was last reviewed 2023. Urine Creatinine 60 mg/dL [place] Comment: Interpretive Data Urine Creatinine: < 10 mg/dL is extremely dilute = or > 10 but < 20 mg/dL is dilute = or > 20 mg/dL is normal Current Interpretive Data was last revised on 2017. Urine 01/18/2024 3:41 PM CDT 01/18/2024 3:43 PM CDT Narrative [facility] - 01/18/2024 4:09 PM CDT Drug of Abuse screening is performed by immunoassay for medical purposes only. ??This is not to be used for Pain Management purposes. ??If Detected, confirmation testing will be performed for Amphetamines, Cocaine, Fentanyl, Methadone, Opiates, Oxycodone or Phencyclidine. us Morgan GAMBOA LAB URINE ORDERABLES Ayse l Result Performing Organization Address [facility] Co de Phone Number [id number] [place] [address] * Troponin T high-sensitivity 2-hour (01/18/2024 2:30 PM CDT) Trop T hs 19 <=22 ng/L Comment: Interpretive Data For further hscTnT resources including the diagnostic algorithm and an aid in interpretation, copy and paste this link: https://nrl.testcatalog.org/show/hsTrop Current Interpretive Data last revised 2020. Trop T hs delta 4 ng/L [place] Trop T hs interp Insignificant [place] Blood 01/18/2024 2:30 PM CDT 01/18/2024 2:36 PM CDT us Fe Root MD LAB BLOOD ORDERABLES F inal Result Performing Organization Address [facility] Co de Phone Number [place] [phone] [facility] [place] [address] * XR Chest 1 Vw Portable (01/18/2024 12:28 PM CDT) Anatomical Region Laterality Modality Body, Chest N/A Computed Radiogr aphy 01/18/2024 12:3 0 PM CDT Narrative 01/18/2024 12:32 PM CDT EXAM DESCRIPTION: XR CHEST 1 VIEW REASON FOR STUDY: chest pain ?? Ambulatory to triage with c/o slipped on my sobriety yesterday morning ?? Admits to doing cocaine and smoking meth yesterday am. ??States lost 15lbs since Wednesday ??Reports decreased PO intake. Not feeling hungry or thirsty ?? TECHNIQUE: PA ??radiographic view(s) of the chest. COMPARISON: 04/26/2019 FINDINGS: LUNGS: ??No focal opacity, pleural effusion, or pneumothorax. ?? HEART/MEDIASTINUM: ??Cardiac silhouette normal in size. Mediastinal and hilar contours appear normal. LINES/TUBES: ??None. BONES: ??No acute osseous abnormality. IMPRESSION: No plain film abnormality evident on PA view. THIS IS AN ELECTRONICALLY VERIFIED FINAL REPORT 01/18/2024 12:32 PM - Electronically signed by ??Prakash GAONA D: ??01/18/2024 12:32 PM T: Report ID: [id number] Reading Location: ??[id number] Procedure Note Erica Latham MD - 01/18/2024 EXAM DESCRIPTION: XR CHEST 1 VIEW REASON FOR STUDY: chest pain Ambulatory to triage with c/o slipped on my sobriety yesterday morning Admits to doing cocaine and smoking meth yesterday am. States lost 15lbs since Wednesday Reports decreased PO intake. Not feeling hungry orthirsty TECHNIQUE: PA radiographic view(s) of the chest. COMPARISON: 04/26/2019 FINDINGS: LUNGS: No focal opacity, pleural effusion, or pneumothorax. HEART/MEDIASTINUM: Cardiac silhouette normal in size. Mediastinal andhilar contours appear normal. LINES/TUBES: None. BONES: No acute osseous abnormality. IMPRESSION: No plain film abnormality evident on PA view. THIS IS AN ELECTRONICALLY VERIFIED FINAL REPORT 01/18/2024 12:32 PM - Electronically signed by Prakash GAONA T: Report ID: [id number] Reading Location: [id number] Fe Root MD IMG XR PROCEDURES Ayse l Result * ECG 12 lead (01/18/2024 12:13 PM CDT) Pathologist [facility] Ventricular Rate EKG/Min 67 BPM [facility] Atrial Rate 67 BPM [facility] [place]-Interval (MSEC) 146 ms [facility] QRS-Interval (MSEC) 112 ms [facility] QT-Interval (MSEC) 420 ms [facility] QTc 443 ms [facility] P [place] 10 degrees [facility] R [place] -21 degrees [facility] T [place] 85 degrees [facility] Diagnosis Normal sinus rhythm Incomplete right bundle branch block T-wave changes When compared with ECG of 27-APR-2019 06:50, Incomplete right bundle branch block is now Present Confirmed by SULTAN BANGURA M.D. ([id number]) on 01/18/2024 3:44:34 PM [facility] 01/18/2024 12:1 3 PM CDT 01/18/2024 3:44 PM CDT us Fe Root MD ECG ORDERABLES Final Result [facility] [place] * eGFR (01/18/2024 12:12 PM CDT) [facility] eGFR 87 >=60 mL/min/1. 73 m2 Comment: Interpretive Data Reference Interval Normal ?>/= 90 mL/min/1.73m2 Mildly decreased* ? 60 - 89 mL/min/1.73m2 Mildly to moderately decreased ?45 - 59 mL/min/1.73m2 Moderately to severely decreased ??30 - 44 mL/min/1.73m2 Severely decreased ?15 - 29 mL/min/1.73m2 Kidney Failure ?< 15 ??mL/min/1.73m2 *Relative to young adult level Estimated glomerular filtration rate is determined by the 2020 CKD-EPI equation recommended by the National Kidney Foundation (A Unifying Approach to GFR Estimation: Recommendations of the NKF-ASK Task Force on Reassessing the Inclusion of Race in Diagnosing Kidney Disease, MELODYSMeggan 2020). The CKD-EPI equation should not be used for patients with unstable renal function and has not been validated in children and those over 70. Current interpretive data was last reviewed 2021. Blood 01/18/2024 12:1 2 PM CDT 01/18/2024 12:16 PM CDT us Fe Root MD LAB BLOOD ORDERABLES F inal Result [facility] [address] [facility] [place] [address] * Differential, auto (01/18/2024 12:12 PM CDT) Pathologist [facility] Neutrophil abs 3.8 1.5 - 6.5 K/cumm Imm gran abs 0.0 0.0 - 0.1 K/cumm [facility] Lymphocyte abs 2.3 0.8 - 3.3 K/cumm [facility] Monocyte abs 0.6 0.2 - 0.8 K/cumm [facility] Eosinophil abs 0.2 0.0 - 0.5 K/cumm [facility] Basophil abs 0.1 0.0 - 0.1 K/cumm [facility] Neutrophil pct 54.5 % [facility] Comment: Interpretive Data Percent cell count reference ranges are not reported, since discordance with absolute values may lead to misinterpretation of CBC data. Current Interpretive Data was last revised on 2018. Imm gran pct 0.6 % [facility] Comment: Interpretive Data Percent cell count reference ranges are not reported, since discordance with absolute values may lead to misinterpretation of CBC data. Current Interpretive Data was last revised on 2018. Lymphocyte pct 32.5 % [facility] Comment: Interpretive Data Percent cell count reference ranges are not reported, since discordance with absolute values may lead to misinterpretation of CBC data. Current Interpretive Data was last revised on 2018. Monocyte pct 8.7 % [facility] Comment: Interpretive Data Percent cell count reference ranges are not reported, since discordance with absolute values may lead to misinterpretation of CBC data. Current Interpretive Data was last revised on 2018. Eosinophil pct 3.0 % [facility] Comment: Interpretive Data Percent cell count reference ranges are not reported, since discordance with absolute values may lead to misinterpretation of CBC data. Current Interpretive Data was last revised on 2018. Basophil pct 0.7 % [facility] Comment: Interpretive Data Percent cell count reference ranges are not reported, since discordance with absolute values may lead to misinterpretation of CBC data. Current Interpretive Data was last revised on 2018. Blood 01/18/2024 12:1 2 PM CDT 01/18/2024 12:16 PM CDT Fe Root MD LAB BLOOD ORDERABLES F inal Result Performing Organization Address [facility] Co de Phone Number [address] [address] * Troponin T high-sensitivity series (baseline, 2hr, 4hr, 6hr) (01/18/2024 12:12 PM CDT) Pathologist [facility] Trop T hs 15 <=22 ng/L Comment: Interpretive Data For further hscTnT resources including the diagnostic algorithm and an aid in interpretation, copy and paste this link: https://nrl.testcatalog.org/show/hsTrop Current Interpretive Data last revised 2020. Blood 01/18/2024 12:1 2 PM CDT 01/18/2024 12:16 PM CDT Fe Root MD LAB BLOOD ORDERABLES F inal Result Performing Organization Address [facility]/ZIP Co de Phone Number [address] [address] * Comprehensive metabolic panel (01/18/2024 12:12 PM CDT) Pathologist [facility] Sodium 135 135 - 145 mmol/L Potassium, pl 3.9 3.3 - 4.9 mmol/L [facility] Chloride 101 97 - 110 mmol/L [facility] CO2 22 22 - 32 mmol/L [facility] Anion gap 12 2 - 15 mmol/L [facility] BUN 13 6 - 25 mg/dL [facility] Creatinine 1.10 0.80 - 1.30 mg/dL [facility] Glucose 158 70 - 199 mg/dL [facility] Comment: Interpretive Data Fasting glucose >/= 126 [...] classification and Diagnosis of Diabetes Diabetes Care 202; 46: S19-S40. Current interpretive data was last revised 2022. Calcium 9.1 8.5 - 10.3 mg/dL [facility] Bilirubin, total 0.4 0.1 - 1.2 mg/dL [facility] Protein, pl 7.5 6.5 - 8.5 g/dL [facility] Albumin 4.3 3.5 - 5.0 g/dL [facility] Alk phos 71 40 - 130 Units/L [facility] ALT 44 7 - 55 Units/L [facility] AST 41 10 - 50 Units/L [facility] Blood 01/18/2024 12:1 2 PM CDT 01/18/2024 12:16 PM CDT Fe Root MD LAB BLOOD ORDERABLES F inal Result [facility] [address] [facility] [place] [address] * CBC with auto differential (01/18/2024 12:12 PM CDT) [facility] WBC 7.0 3.8 - 9.9 K/cumm Hgb 15.5 13.0 - 17.5 g/dL [facility] Hct 43.5 38.9 - 50.3 % [facility] Plt 169 150 - 400 K/cumm [facility] MPV 10.9 9.1 - 12.3 fL [facility] RBC 4.66 4.30 - 5.80 M/cumm [facility] MCV 93.3 81.3 - 96.4 fL [facility] MCH 33.3 27.1 - 33.3 pg [facility] MCHC 35.6 32.3 - 35.7 g/dL [facility] RDW CV 12.6 11.1 - 14.9 % [facility] RDW SD 43.3 35.7 - 48.1 fL [facility] NRBC abs 0.00 0.00 - 0.01 K/cumm [facility] Blood (Blood, Venous) 01/18/2024 12:12 PM CDT 01/18/2024 12:16 PM CDT us Fe Root MD LAB BLOOD ORDERABLES F inal Result Performing Organization Address City/State/[facility] Co de Phone Number [facility] [address] [facility] Department [place] [address] documented in this encounter Visit Diagnoses Diagnosis Chest pain- Primary Unspecified chest pain Stable angina (HCC) Other and unspecified angina pectoris Chest pain, unspecified type Abnormal EKG Nonspecific abnormal electrocardiogram (ECG) (EKG) CAD (coronary artery disease) Coronary atherosclerosis of unspecified type of vessel, [place] or graft Hypertension Unspecified essential hypertension Hyperlipidemia Other and unspecified hyperlipidemia Polysubstance abuse (CMS/HCC) (HCC) Other, mixed, or unspecified nondependent drug abuse, unspecified Tobacco abuse Tobacco use disorder Morbid obesity (HCC) Morbid obesity documented in this encounter Admitting Diagnoses Diagnosis Stable angina (HCC) Other and unspecified angina pectoris Chest pain Unspecified chest pain documented in this encounter Administered Medications Inactive Administered Medications - up to 3 most recent administrations Medication Order MAR Action Action Date Dose Rate Site aspirin enteric coated tablet 81 mg 81 mg, oral, Daily, First dose on Wed01/19/24 at 0900, Do not crush, chew, cut, dissolve, open or otherwise manipulate tablet/capsule., Indications: cardiovascular diseaseIndications:cardi ovascular disease Given 01/19/2024 8:55 AM CDT 81 mg atorvastatin (LIPITOR) tablet 80 mg 80 mg, oral, Nightly, First dose on Wed01/18/24 at 2145, Indications: myocardial infarction preventionIndications:my ocardial infarction prevention Given 01/18/2024 9:50 PM CDT 80 mg heparin 5,000 unit/mL injection 7,500 Units 7,500 Units, subcutaneous, Every 8 hours scheduled, First dose on Wed01/18/24 at 2200, Indications: Deep Vein Thrombosis PreventionIndications:De ep Vein Thrombosis Prevention Given 01/19/2024 5:19 AM CDT 7,500 Units Right Lower Abdomen Given 01/18/2024 9:50 PM CDT 7,500 Units L eft Lower Abdomen losartan (COZAAR) tablet 50 mg 50 mg, oral, Daily, First dose on Wed01/18/24 at 1906, Indications: cardiovascular diseaseIndications:cardiovascular disease Given 01/19/2024 8:55 AM CDT 50 mg Given 01/18/2024 7:25 PM CDT 50 mg morphine injection 2 mg 2 mg, intravenous, Administer over 4 Minutes, Every 3 hours PRN, 1st line for pain, breakthrough chest pain, Starting on Wed01/18/24 at 1749 nitroglycerin (NITRO-BID) 2 % ointment 0.5 inch 0.5 inch, topical, Administer over 3.5 Hours, 4 times daily (scheduled for nitrates), First dose on Wed01/18/24 at 1830, Apply to chest or back with the applicator or dose-measuring paper. Wear gloves to apply to affected area. Wipe clean prior to reapplying next dose. May cover with a non-occlusive dressing., Apply to affected area: chest Medication Applied 01/19/2024 8:56 AM CDT 0.5 inches Left Arm Medication Applied 01/18/2024 5:59 PM CDT 0.5 inches Chest nitroglycerin (NITROSTAT) sublingual tablet 0.4 mg 0.4 mg, sublingual, Every 5 min PRN, chest pain, Starting on Wed01/18/24 at 1747, For 3 doses, Give tablets now and if helps pain apply nitro paste 1 May administer up to 3 doses per episode. ondansetron (ZOFRAN) injection 4 mg 4 mg, intravenous, Administer over 2 Minutes, 3 times daily PRN, nausea, vomiting, if not tolerating PO, Starting on Wed01/18/24 at 1905, Indications: Nausea and VomitingIndications:Nausea and Vomiting ondansetron ODT (ZOFRAN-ODT) disintegrating tablet 4 mg 4 mg, oral, 3 times daily PRN, nausea, vomiting, Starting on Wed01/18/24 at 1905, Indications: Nausea and VomitingIndications:Nausea and Vomiting perflutren lipid (DEFINITY) 1.5 mL in sodium chloride 0.9% 10 mL syringe 1-10 mL, intravenous, Once in imaging, contrast, Starting on Wed01/19/24 at 1003, For 1 dose, Intra-Procedure (CV) Contrast Given 01/19/2024 10:03 AM CDT 2 mL regadenoson (LEXISCAN) 0.4 mg/5 mL injection 0.4 mg 0.4 mg, intravenous, Once, On Wed01/19/24 at 1100, For 1 dose, Intra-Procedure (CV), Administer IV push over 10 seconds., Indications: Myocardial Perfusion Imaging AdjunctIndications:Myocardial Perfusion Imaging Adjunct Given 01/19/2024 11:46 AM CDT 0.4 mg sodium chloride 0.9% flush 0.5-20 mL 0.5-20 mL, intra-catheter, Every 8 hours scheduled, First dose on Wed01/18/24 at 2200, Flush volume based on line type and size. , Indications: FlushingIndications:Flushing Given 01/19/2024 5:18 AM CDT 10 mL Given 01/18/2024 9:50 PM CDT 10 mL tc-99m tetrofosmin (MYOVIEW) injection 11 millicurie 11 millicurie, intravenous, Once in imaging, radiopharmaceutical, Starting on Wed01/19/24 at 0931, For 1 dose, Indications: Diagnostic RadiographyIndications:Diagnostic Radiography Given 01/19/2024 9:31 AM CDT 11 millicuries tc-99m tetrofosmin (MYOVIEW) injection 34 millicurie 34 millicurie, intravenous, Once in imaging, radiopharmaceutical, Starting on Wed01/19/24 at 1157, For 1 dose, Indications: Diagnostic RadiographyIndications:Diagnostic Radiography Given 01/19/2024 11:57 AM CDT 34 millicuries documented in this encounter Discontinued Medications Medication Sig Discontinue Reason Start Date End Da te carvedilol (COREG) 6.25 mg tabletIndications:card iovascular disease Take 1 tablet (6.25 mg total) by mouth 2 (two) times a day 04/28/2019 01/18/2024 aspirin 81 mg enteric coated tabletIndications:card iovascular disease Take 1 tablet (81 mg total) by mouth daily 04/28/2019 01/18/2024 atorvastatin (LIPITOR) 80 mg tabletIndications:myoc ardial infarction prevention Take 1 tablet (80 mg total) by mouth nightly 04/28/2019 01/18/2024 famotidine (PEPCID) 20 mg tabletIndications:Prev ention of Stress Ulcer Take 1 tablet (20 mg total) by mouth daily as needed for indigestion or heartburn 04/28/2019 01/18/2024 losartan (COZAAR) 50 mg tabletIndications:card iovascular disease Take 1 tablet (50 mg total) by mouth daily 04/28/2019 01/18/2024 ticagrelor (BRILINTA) 90 mg tabletIndications:card iovascular disease Take 1 tablet (90 mg total) by mouth 2 (two) times a day 04/28/2019 01/18/2024 famotidine (PEPCID) 20 mg tablet Take 1 tablet (20 mg total) by mouth 2 (two) times a day 01/18/2024 fluticasone propionate (FLONASE) 50 mcg/actuation nasal spray Administer 2 sprays into each nostril daily 12/02/2023 01/18/2024 ticagrelor (BRILINTA) 90 mg tablet Take 1 tablet (90 mg total) by mouth 2 (two) times a day 01/18/2024 documented as of this encounter Historical Medications * This list may reflect changes made after this encounter. losartan (COZAAR) 50 mg tablet Take 1 tablet (50 mg total) by mouth daily atorvastatin (LIPITOR) 80 mg tablet Take 1 tablet (80 mg total) by mouth nightly aspirin 81 mg enteric coated tablet Take 1 tablet (81 mg total) by mouth daily carvediloL (COREG) 12.5 mg tablet Take 1 tablet (12.5 mg total) by mouth 2 (two) times a day with meals 11/08/2023 ticagrelor (BRILINTA) 90 mg tablet Take 1 tablet (90 mg total) by mouth 2 (two) times a day famotidine (PEPCID) 20 mg tablet Take 1 tablet (20 mg total) by mouth 2 (two) times a day fluticasone propionate (FLONASE) 50 mcg/actuation nasal spray Administer 2 sprays into each nostril daily 12/02/2023 4 added in this encounter Active and Recently Administered Medications Times are shown in CDT. Scheduled Medication Order 2024 01/18/2024 01/19/2024 aspirin chewable tablet 324 mg 324 mg, oral, Once, On Wed01/18/24 at 1210, For 1 dose, Indications: Chest Pain 1212 (Not Given - Provider: Suzie Gongora RN - Reason: Order parameters not met - Comment: reports took at home) aspirin enteric coated tablet 81 mg 81 mg, oral, Daily, First dose on Wed01/19/24 at 0900, Do not crush, chew, cut, dissolve, open or otherwise manipulate tablet/capsule., Indications: cardiovascular disease 0855 (Given - Provider: Clau Tim RN) atorvastatin (LIPITOR) tablet 80 mg 80 mg, oral, Nightly, First dose on Wed01/18/24 at 2145, Indications: myocardial infarction prevention 2149 (Given - Provider: Jolly Perez RN) carvediloL (COREG) tablet 12.5 mg 12.5 mg, oral, 2 times daily with meals (bkfst, dinner), First dose on Wed01/18/24 at 1906 1905 (Held by Provider - Provider: COOPER Argueta - Reason: Hold for Procedure - Comment: Hold for potential stress test or catheterization tomorrow)1906 (Dose Auto Held) 0800 (Not Given - Provider: Clau Tim RN - Reason: See Provider Order)1301 (Unheld by Provider - Provider: Rudy Malave MD)1800 (Due) heparin 5,000 unit/mL injection 7,500 Units 7,500 Units, subcutaneous, Every 8 hours scheduled, First dose on Wed01/18/24 at 2200, Indications: Deep Vein Thrombosis Prevention 2149 (Given - Provider: Jolly Perez RN) 0519 (Given - Provider: Jolly Perez RN)1400 (Not Given - Provider: Clau Tim RN - Reason: Patient/family refused - Comment: Patient being discharged.) losartan (COZAAR) tablet 50 mg 50 mg, oral, Daily, First dose on Wed01/18/24 at 1906, Indications: cardiovascular disease 1925 (Given - Provider: Carolyn Aguilera) 0855 (Given - Provider: Clau Tim RN) nitroglycerin (NITRO-BID) 2 % ointment 0.5 inch (CANCELED) 0.5 inch, topical, Administer over 3.5 Hours, 4 times daily (scheduled for nitrates), First dose on Wed01/18/24 at 1830, Apply to chest or back with the applicator or dose-measuring paper. Wear gloves to apply to affected area. Wipe clean prior to reapplying next dose. May cover with a non-occlusive dressing., Apply to affected area: chest 1759 (Medication Applied - Provider: Jagruti German RN)2133 (Medication Removed - Provider: Jolly Perez RN) 0856 (Medication Applied - Provider: Clau Tim RN)1130 (Not Given - Provider: Clau Tim RN - Reason: Patient not available - Comment: Patient is having stress testing and echocardiogram.)1423 (Medication Removed - Provider: Clau Tim RN) regadenoson (LEXISCAN) 0.4 mg/5 mL injection 0.4 mg (COMPLETED) 0.4 mg, intravenous, Once, On Wed01/19/24 at 1100, For 1 dose, Intra-Procedure (CV), Administer IV push over 10 seconds., Indications: Myocardial Perfusion Imaging Adjunct 1146 (Given - Provider: Danika De Leon RN) sodium chloride 0.9% flush 0.5-20 mL 0.5-20 mL, intra-catheter, Every 8 hours scheduled, First dose on Wed01/18/24 at 2200, Flush volume based on line type and size. , Indications: Flushing 2149 (Given - Provider: Jolly Perez RN) 0518 (Given - Provider: Jolly Perez RN)1400 (Not Given - Provider: Clau Tim RN - Reason: Patient/family refused - Comment: Patient being discharged.) PRN Medication Order 2024 01/18/2024 01/19/2024 Carrier Fluids for Secondary Infusion - 0.9% Sodium Chloride 30 mL, intravenous, As needed, For priming tubing and/or flushing, Starting on Wed01/18/24 at 1905, 0-250 ml/hr to flush line after IV infusions when no maintenance IV ordered. Infuse 30mL at the same rate as the secondary infusion. Run as primary IV, not intended for KVO. famotidine (PEPCID) tablet 20 mg 20 mg, oral, Daily PRN, indigestion, heartburn, Starting on Wed01/18/24 at 1905, Indications: Prevention of Stress Ulcer hydrOXYzine (ATARAX) tablet 50 mg 50 mg, oral, 3 times daily PRN, anxiety, lacrimation, rhinorrhea, Starting on Wed01/18/24 at 1905, Indications: anxiety, lacrimation, rhinorrhea loperamide (IMODIUM) capsule 2 mg 2 mg, oral, Every 4 hours PRN, other, each subsequent loose stool, Starting on Wed01/18/24 at 1905, Do not exceed 16 mg per 24 hour time period., Indications: diarrhea loperamide (IMODIUM) capsule 4 mg 4 mg, oral, Once as needed, other, first loose stool, Starting on Wed01/18/24 at 1905, For 1 dose, Maximum recommended dose 16 mg/day, Indications: diarrhea morphine injection 2 mg 2 mg, intravenous, Administer over 4 Minutes, Every 3 hours PRN, 1st line for pain, breakthrough chest pain, Starting on Wed01/18/24 at 1749 nitroglycerin (NITROSTAT) sublingual tablet 0.4 mg 0.4 mg, sublingual, Every 5 min PRN, chest pain, Starting on Wed01/18/24 at 1747, For 3 doses, Give tablets now and if helps pain apply nitro paste 1 May administer up to 3 doses per episode. ondansetron (ZOFRAN) injection 4 mg(Linked Group 1) 4 mg, intravenous, Administer over 2 Minutes, 3 times daily PRN, nausea, vomiting, if not tolerating PO, Starting on Wed01/18/24 at 1905, Indications: Nausea and Vomiting ondansetron ODT (ZOFRAN-ODT) disintegrating tablet 4 mg(Linked Group 1) 4 mg, oral, 3 times daily PRN, nausea, vomiting, Starting on Wed01/18/24 at 1905, Indications: Nausea and Vomiting perflutren lipid (DEFINITY) 1.5 mL in sodium chloride 0.9% 10 mL syringe (COMPLETED) 1-10 mL, intravenous, Once in imaging, contrast, Starting on Wed01/19/24 at 1003, For 1 dose, Intra-Procedure (CV) 1003 (Contrast Given - Provider: Dipti Pickard, [facility]) polyethylene glycol (MIRALAX) packet 17 g 17 g, oral, Daily PRN, constipation, Starting on Wed01/18/24 at 1905, Indications: constipation ramelteon (ROZEREM) tablet 8 mg 8 mg, oral, Nightly PRN, sleep, Starting on Wed01/18/24 at 1905, Indications: Sleep-Onset Insomnia sodium chloride 0.9% flush 0.5-20 mL 0.5-20 mL, intra-catheter, As needed, line care, Starting on Wed01/18/24 at 1905, Flush volume based on line type and size. Flush before and after each use. , Indications: Flushing tc-99m tetrofosmin (MYOVIEW) injection 11 millicurie (COMPLETED) 11 millicurie, intravenous, Once in imaging, radiopharmaceutical, Starting on Wed01/19/24 at 0931, For 1 dose, Indications: Diagnostic Radiography 0931 (Given - Provid er: Maikel Najera, RT) tc-99m tetrofosmin (MYOVIEW) injection 34 millicurie (COMPLETED) 34 millicurie, intravenous, Once in imaging, radiopharmaceutical, Starting on Wed01/19/24 at 1157, For 1 dose, Indications: Diagnostic Radiography 1157 (Given - Provid er: Shaniqua Castro, RT) traZODone (DESYREL) tablet 50 mg 50 mg, oral, Nightly PRN, sleep, insomnia, Starting on Wed01/18/24 at 1905, Indications: Insomnia Linked Groups Order Group 1: ondansetron ODT (ZOFRAN-ODT) disintegrating tablet 4 mgJump to med 4 mg, oral, 3 times daily PRN, nausea, vomiting, Starting on Wed01/18/24 at 1905, Indications: Nausea and Vomiting Or ondansetron (ZOFRAN) injection 4 mgJump to med 4 mg, intravenous, Administer over 2 Minutes, 3 times daily PRN, nausea, vomiting, if not tolerating PO, Starting on Wed01/18/24 at 1905, Indications: Nausea and Vomiting documented in this encounter Orders Medications Ordered That Levon ht Not Have Been Administered Count Last Ordered Date First Ordered Date aspirin chewable tablet 324 mg 1 01/18/2024 Carrier Fluids for Secondary Infusion - 0.9% Sodium Chloride 1 01/18/2024 carvediloL (COREG) tablet 12.5 mg 1 famotidine (PEPCID) tablet 20 mg 1 01/18/20 hydrOXYzine (ATARAX) tablet 50 mg loperamide (IMODIUM) capsule 2 mg loperamide (IMODIUM) capsule 4 mg 1 morphine injection 2 mg 01/18/2024 nitroglycerin (NITROSTAT) menard blingual tablet 0.4 mg 1 01/18/2024 ondansetron (ZOFRAN) injection 4 mg 01/17 ondansetron ODT (ZOFRAN-ODT) disintegrating tablet 4 mg 1 01/18/2024 polyethylene glycol (MIRALAX) packet 17 g 01/18/2024 ramelteon (ROZEREM) tablet 8 mg sodium chloride 0.9% flush 0.5-20 mL 06/2024 traZODone (DESYREL) tablet 50 mg 01/18/20 Nursing Count Last Ordered Date First Orde red Date TELEMETRY MONITORING 01/18/2024 Consult Count Last Ordered Date First Orde red Date IP CONSULT TO CARDIOLOGY 1 01/18/2024 IV Count Last Ordered Date First Orde red Date SALINE LOCK IV 1 01/18/2024 Admission Count Last Ordered Date First Orde red Date ADMIT TO INPATIENT 1 01/19/2024 INITIATE OBSERVATION SERVICES 1 01/18/2024 Discharge Count Last Ordered Date First Orde red Date DISCHARGE PATIENT 1 01/19/2024 CORE MEASURES Count Last Ordered Date First Ord ered Date REASON FOR NO ASPIRIN ON ARRIVAL 1 01/18/20 24 documented in this encounter Care Teams Sweet Potato Disintegrator Relationship Specialty Start Date End Date Unknown, Notinfile PCP - General 04/26/19 documented as of this encounter
--- OUTSIDE RECORDS SUMMARY | 2024-10-22 00:16 | XMS_ITS | Encounter Summary ---
Author Organization [facility] Healthcare Address [address] [place] [address] Care Team Providers Care Unit Aide Tech Name Role Phone Unavailable Primary Care Provider Unavailabl e Encounter Details Date Type Department Care Team (Latest Contact Info) Description 10/24/2016 9:39 PM RECREATIONAL THERAPY AIDE - 10/25/2016 12:36 AM RECREATIONAL THERAPY AIDE Hospital Encounter [facility] Nadine Walsh MD [address] [facility] [place] [address] Closed nondisplaced fracture of body of right hamate bone; Closed displaced fracture of base of fifth metacarpal bone of right hand; Striking against or struck by other objects, initial encounter; Cigarette nicotine dependence, uncomplicated Social History Tobacco Use Types Packs/Day Years Used Date Smoking Tobacco: Never Assessed Sex and Gender Information Value Date Recorded Sex Assigned at Not on file Legal Sex Male 7:37 PM RECREATIONAL THERAPY AIDE Gender Identity Not on file Sexual Orientation Not on file documented as of this encounter Last Filed Vital Signs Vital Sign Reading Time Taken Comments Blood Pressure 154/102 10/24/2016 9:43 PM RECREATIONAL THERAPY AIDE Pulse 82 10/24/2016 9:43 PM RECREATIONAL THERAPY AIDE Temperature 36.4 ??C (97.6 ??F) 10/24/2016 9:43 PM CS T Respiratory Rate - - Oxygen Saturation 99% 10/24/2016 9:43 PM RECREATIONAL THERAPY AIDE Inhaled Oxygen Concentration - - Weight 122.5 kg (270 lb) 10/24/2016 9:43 PM RECREATIONAL THERAPY AIDE Height 190.5 cm (6' 3 ) 10/24/2016 9:43 PM RECREATIONAL THERAPY AIDE Body Mass Index 33.75 10/24/2016 9:43 PM RECREATIONAL THERAPY AIDE documented in this encounter Plan of Treatment Not on file documented as of this encounter Procedures Procedure Name Priority Date/Time Associated Diagnosis Comments CT ENTIRE UPPER EXTREMITY WO CONTRAST R Routine 10/24/2016 12:00 AM RECREATIONAL THERAPY AIDE XR HAND RIGHT 3 OR MORE VIEWS Routine 10/24/2016 12:00 AM RECREATIONAL THERAPY AIDE documented in this encounter Results * CT Entire Upper Extremity Right WO Contrast (10/24/2016 12:00 AM RECREATIONAL THERAPY AIDE) Anatomical Region Laterality Modality Upper Extremities Right Computed Tomog carlos 10/24/2016 Impressions 10/24/2016 11:40 PM RECREATIONAL THERAPY AIDE Fractures, hamate and fifth metacarpal base. ??Mild subluxation of the fifth metacarpal base. ??Soft tissue swelling. Automated exposure control was used as a dose optimization technique for this examination. THIS IS AN ELECTRONICALLY VERIFIED REPORT 10/24/2016 11:36 PM: ??Tina Cheema M.D. ?? Tina Cheema M.D. JS:jai 11:36 PM 11:36 PM [facility] [EOD] Narrative 10/24/2016 11:40 PM RECREATIONAL THERAPY AIDE EXAMINATION: ??CT RIGHT HAND/WRIST HISTORY: ??Hamate fracture with possible subluxation of the fifth metacarpal, CT recommended; acute onset pain after trauma today TECHNIQUE: ??Axial computed tomography of the right hand/wrist without intravenous contrast administration per standard protocol with coronal and sagittal reformatted images COMPARISON: ??Radiographs 10/24/2016 FINDINGS: ??There is a fracture of the medial aspect of the hamate which appears mildly comminuted and involves the joint at the base of the fifth metacarpal. ??There is a fracture through the base of the fifth metacarpal as well which is visible at its lateral aspect, also slightly comminuted and involving its joint with the hamate and the fourth metacarpal base. ??There is subluxation of the fifth metacarpal which is displaced posteriorly on axial image 156. ??The remaining osseous structures are intact. ??There is no substantial degenerative joint disease. ??Soft tissue swelling is noted around the fracture sites. Procedure Note Provider, MD Carlene - 02/26/2021 EXAMINATION: CT RIGHT HAND/WRIST HISTORY: Hamate fracture with possible subluxation of the fifthmetacarpal, CT recommended; acute onset pain after trauma today TECHNIQUE: Axial computed tomography of the right hand/wrist without intravenous contrast administration per standard protocol with coronal and sagittal reformatted images COMPARISON: Radiographs 10/24/2016 FINDINGS: There is a fracture of the medial aspect of the hamate which appears mildly comminuted and involves the joint at the base of the fifth metacarpal. There is a fracture through the base of the fifth metacarpalas well which is visible at its lateral aspect, also slightly comminuted and involving its joint with the hamate and the fourth metacarpal base. Thereis subluxation of the fifth metacarpal which is displaced posteriorly onaxial image 156. The remaining osseous structures are intact. There is no substantial degenerative joint disease. Soft tissue swelling is notedaround the fracture sites. IMPRESSION: Fractures, hamate and fifth metacarpal base. Mild subluxation of thefifth metacarpal base. Soft tissue swelling. Automated exposure control was used as a dose optimization technique forthis examination. THIS IS AN ELECTRONICALLY VERIFIED REPORT 10/24/2016 11:36 PM: Tina Cheema M.D. Tina Cheema M.D. JS:jai 11:36 PM 11:36 PM [facility] [EOD] Larisa Bhakta IM CT PROCEDURES Final Result * XR Hand Right 3 or More Views (10/24/2016 12:00 AM RECREATIONAL THERAPY AIDE) Anatomical Region Laterality Modality Upper Extremities, Hand Right Radiogra [facility] 10/24/2016 Impressions 10/24/2016 10:14 PM RECREATIONAL THERAPY AIDE ??Hamate fracture with possible subluxation fifth metacarpal as above. ??Consider CT THIS IS AN ELECTRONICALLY VERIFIED REPORT 10/24/2016 10:09 PM: ??Anu Turcios M.D. ?? Anu Turcios M.D. ML:robin 10:09 PM 10:09 PM [facility] [EOD] Narrative 10/24/2016 10:14 PM RECREATIONAL THERAPY AIDE EXAMINATION: ??3 views the right hand COMPARISON: ??None HISTORY: ??Pressure refrigerator today, pain third through fifth MCP joints There is a minimally displaced fracture off the medial hamate at the base of the fifth metacarpal. ??There may be some posterior subluxation of the proximal fifth metacarpal. ??Remainder the bones are intact. ??Joint spaces are maintained. Procedure Note Provider, Carlene, - 02/26/2021 EXAMINATION: 3 views the right hand COMPARISON: None HISTORY: Pressure refrigerator today, pain third through fifth MCPjoints There is a minimally displaced fracture off the medial hamate at the baseof the fifth metacarpal. There may be some posterior subluxation of theproximal fifth metacarpal. Remainder the bones are intact. Joint spaces are maintained. IMPRESSION: Hamate fracture with possible subluxation fifth metacarpal as above. Consider CT THIS IS AN ELECTRONICALLY VERIFIED REPORT 10/24/2016 10:09 PM: Anu Turcios M.D. Anu Turcios M.D. ML:robin 10:09 PM 10:09 PM [facility] [EOD] Nadine Galarza MD IMG XR PROCEDURES Final R esult documented in this encounter Visit Diagnoses Diagnosis Closed nondisplaced fracture of body of right hamate bone Closed displaced fracture of base of fifth metacarpal bone of right hand Striking against or struck by other objects, initial encounter Cigarette nicotine dependence, uncomplicated documented in this encounter
--- OUTSIDE RECORDS SUMMARY | 2024-10-22 00:16 | XMS_ITS | Encounter Summary ---
Author Organization [facility] Facility Care Team Providers Care Readers' Advisory Service Librarian Name Role Phone Unknown, Notinfile Primary Care Provider Unavail able Encounter Details Date Type Department Care Team (Latest Contact Info) Description 11/03/2016 Orders Only [facility] CLINCONV Provider, MD Carlene [address] [place] [id number] Social History Tobacco Use Types Packs/Day Years Used Date Smoking Tobacco: Never Assessed Sex and Gender Information Value Date Recorded Sex Assigned at Not on file Legal Sex Male 7:37 PM BATCHMAKER Gender Identity Not on file Sexual Orientation Not on file documented as of this encounter Plan of Treatment Not on file documented as of this encounter Procedures Procedure Name Priority Date/Time Associated Diagnosis Comments PROCEDURE - RESULT 10/28/2016 12 :00 AM BATCHMAKER documented in this encounter Results * PROCEDURE - RESULT (10/28/2016 12:00 AM BATCHMAKER) Narrative 10/28/2016 12:00 AM BATCHMAKER Ordered by an unspecified provider. us Historical Provider Final Res ult documented in this encounter Visit Diagnoses Not on filedocumented in this encounter Care Teams Readers' Advisory Service Librarian Relationship Specialty Start Date End Date Unknown, Notinfile PCP - General 04/26/19 documented as of this encounter
--- OUTSIDE RECORDS SUMMARY | 2024-10-22 00:16 | XMS_ITS | Encounter Summary ---
Author Organization [facility] Healthcare Address [address] [place] [address] Care Team Providers Care Phonograph Cartridge Assembler Name Role Phone Unavailable Primary Care Provider Unavailabl e Encounter Details Date Type Department Care Team (Latest Contact Info) Description 11/03/2016 6:17 AM COMMITTEE MEMBER - 11/03/2016 12:15 PM COMMITTEE MEMBER Hospital Encounter [facility] Gerald Nunez MD [address] [facility] [address] [address] Closed fracture of fifth metacarpal bone of right hand; Closed displaced fracture of body of right hamate bone Social History Tobacco Use Types Packs/Day Years Used Date Smoking Tobacco: Never Assessed Sex and Gender Information Value Date Recorded Sex Assigned at Not on file Legal Sex Male 7:37 PM COMMITTEE MEMBER Gender Identity Not on file Sexual Orientation Not on file documented as of this encounter Last Filed Vital Signs Vital Sign Reading Time Taken Comments Blood Pressure 149/104 10/28/2016 2:29 PM COMMITTEE MEMBER Pulse 108 10/28/2016 2:29 PM COMMITTEE MEMBER Temperature 36.1 ??C (97 ??F) 10/28/2016 2:29 PM COMMITTEE MEMBER Respiratory Rate - - Oxygen Saturation 98% 10/28/2016 2:29 PM COMMITTEE MEMBER Inhaled Oxygen Concentration - - Weight 121.6 kg (268 lb) 10/28/2016 2:29 PM COMMITTEE MEMBER Height 186.7 cm (6' 1.5 ) 10/28/2016 2:29 PM COMMITTEE MEMBER Body Mass Index 34.88 10/28/2016 2:29 PM COMMITTEE MEMBER documented in this encounter Plan of Treatment Not on file documented as of this encounter Visit Diagnoses Diagnosis Closed fracture of fifth metacarpal bone of right hand Closed displaced fracture of body of right hamate bone documented in this encounter
--- OUTSIDE RECORDS SUMMARY | 2024-10-22 00:17 | XMS_ITS | Continuity of Care Document ---
Author Organization [employer] Address [address] [place] [address] Phone Care Team Providers Care Script Worker Name Role Phone Ranjit Gilbert MD Unavailable Unavailable Allergies, Adverse Reactions, Alerts Substance Reaction Status Criticality No Known Allergies Active No Inform ation Medications Medication Instructions Dosage Effective Dates (start - stop) Status Comments losartan 100 mg tablet take 1 tablet by oral route every day 100 MG - Active carvedilol 12.5 mg tablet take 1 tablet by oral route 2 times every day with food 12.5 MG - Active atorvastatin 80 mg tablet take 1 tablet by oral route every day at bedtime - Active aspirin 81 mg tablet,delayed release take 1 tablet by oral route every day 81 MG - Active Procedures Procedure Date HEMOGLOBIN A1C HGA1C, GLYCO ROUTINE VENIPUNCTURE DC COMPREHEN METABOLIC PANEL CMP Pt inelig neg scrn depres OFFICE [id number] BODY MASS INDEX DOCD SYST BP GE 130 - 139MM HG DIAST BP 80-89 MM HG ROUTINE VENIPUNCTURE DC Pt inelig neg scrn depres PREVENTATIVE-NEW: 40-64 BODY MASS INDEX DOCD SYST BP LT 130 MM HG DIAST BP < 80 MM HG Advance Directives Directive Yes / No Effective Date File Name No Information Encounters Encounter Description Practice Location Reason(s) For Visit Diagnoses Date Provider Providers Copied on Encounter [facility], [address], [place], [place], [id number] , tel: [phone] [facility] No Information 4 Of[address]. [address], [id number] , . tel: [phone] Referring Provider: Rekha Bryson, [address] [place], [address] . tel:[phone] [facility], [address], [place], [place], [id number] , tel: [phone] [facility] Elevated glucose 4 Wyatt Da Silva. [address] [place], [place], [id number] , . tel: [phone] Referring Provider: Rekha Bryson, [address] [place], [address] . tel:[phone] [facility], [address], [place], [place], [id number] , tel: [phone] [facility] No Information 4 Ofelia Pickettn. [address] [place] [address], [id number] , . tel: [phone] Referring Provider: Felicitas Nicholson, [address] [place], [address] . tel:[phone] OFFICE [facility] [employer] [place], [address], [place], [place], [id number] , tel: [phone] [facility] Chronic Conditions (chief complaint) Mild intermittent asthma without complicationTobacc o useCoronary artery disease involving northern cheyenne coronary artery of [place] heart without angina pectorisHyperlipid emia, unspecified hyperlipidemia typeBipolar affective disorder, remission status unspecifiedEssenti al hypertensionClass 3 ObesityBody mass index [BMI] 40.0-44.9, adult 4 Bharat Polk. [address] [place], [place], [id number] , [place]. [phone] Referring Provider: Rekha Bryson, [address] [place], [address] . tel:[phone] PREVENTATIVE -NEW: 40-[address] [facility], [address], [place], [place], [id number] , [place] tel: [phone] [facility] Patient (chief complaint) Class 3 ObesityBody mass index [BMI] 40.0-44.9, adultCoronary artery disease involving northern [place] coronary artery of [place] heart without angina pectorisEssential hypertensionHyperl ipidemia, unspecified hyperlipidemia typeRoutine medical examTobacco useBipolar affective disorder, remission status unspecifiedMild intermittent asthma without complicationBlood in stool 4 Bharat Polk. [address] [place], [place], [id number] , [place]. [phone] Referring Provider: Rekha Bryson, [address] [place], [address] . tel:[phone] Family History Family Member Type Diagnosis Age At Onset Father Problem Diabetes mellitus Problem Family history of Asthma Father Problem Hypertension Problem Family history of Cancer, co neisha Problem Family history of Diabetes josh jo Payers Payer name Insurance type Covered republican ID Authorvirgiea oli(s) [facility] [id number] Social History Type Description Quantity Date Captured Comments Sex Male Smoking Status No Information Sexual Orientation Straight or heterosexual Gender Identity Male Chief Complaint And Reason For Visit No Information Reason For Referral Reason For Referral No Information Plan Of Treatment Date Type Action Status Goal Tobacco cessation counseling completed Goal Dietary management education , guidance, and counseling completed Goal Tobacco cessation counseling completed Goal Dietary management education , guidance, and counseling completed Referral Ordered: Daniela AMARO, [facility] : Internal Medicine (related to Coronary artery disease involving northern che[place] coronary artery of northern che[place] heart without angina pectoris) ordered Referral Referred To: Triston Marshall MD [address] [place], [phone] Ordered: Referrals: Gastroenterology. Triston Marshall MD. Evaluation/diagnostic/treatment - Level 3 ordered Referral Referred To: Carlitos Suarez MD [facility] [place], [phone] Ordered: Referrals: Internal Medicine. Carlitos Suarez MD. Evaluation/diagnostic/treatment - Level 3 ordered History Of Present Illness Encounter Date Complaint History Of Prese nt Illness Chronic Conditions *See Chronic Conditions HPI New Patient Patient presents to establish care as a new patient. Patient's last visit to a primary care provider was when I was a child . He is following with intake counselor since his [place] in 2019. 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 He has 4 daughters who do not live with him. He is happily . His dad is a patient here.RadhaHe has had blood in stool intermittently over the past few months. No blood in stool within the past week. He has no abdominal pain. His grandma was diagnosed with colon cancer at an earlier age but he does now know exact age of diagnosis. ChronicCADHad [place] in 2019. S/p stent at that time. Takes ASA, statin and beta dorian. Follows with intake counselor in [place]. He has had no cardiovascular events since at that time. He has no chest pain, SOB currently. He was evaluated in ER/hospital last month with chest pain. He reports that he messed up and did meth and cocaine. He has history of substance abuse with cocaine and meth but reports that he does not regularly use anymore. He avoids hanging out with people who use these substances. HTNTakes losartan and carvedilolHome BP readings: noneAsthmaHe has no difficulty breathing, wheezing. He had this as a child and feels well now.Bipolar DisorderHe was diagnosed with intermittent explosive disorder as well. He was on meds as a teen but not as an adult. He feels that he is coping well. He is not interested in discussing this at this time. HLDTakes statin daily with no side effectsTobacco UseSmokes 2 ppd for the past 28 years. Has not tried quit before outside of not being able to afford or when in the hospital. He thinks about quitting but is not ready at this timeSpecialists/Other Providers: intake counselor (Dr Jason Calix in [place])Allergies: thinks he may be allergic to an antibiotic but cannot remember Mood - goodDiet - not great, tries to eat more chicken, limits saltExercise - not much outside of workTobacco/Alcohol/Drugs: 56 pack year history, current/socially 6-10 beers at a time, once weekly with beer/not at the moment - did cocaine and meth last monthHe used to use meth, cocaine in the past. His mother is an addictScreeningsnone needed - no colon cancer or prostate cancerImmunizationsCOVID - got primary series but no boosterTdap - DUE NOW Functional Status Date Functional Assessmen t No Information Instructions Date Instruction Additional Infor kev Encourage healthy diet and exerc ise Related to Class 3 Obesity Continue medications We will refer you to Bran Castro for continued followup Related to Coronary artery disease involving northern che[place] coronary artery of northern [place] heart without angina pectoris Continue to work on low fat diet and increase regular exercise with goal of walking at least 30 minutes 3-5 times per week Related to Hyperlipidemia, unspecified hyperlipidemia type Monitor and let us k now if you would like referral to psychiatrist Related to Bipolar affective disorder, remission status unspecified Work on cutting back to eventual quittingLet us know if you would like to discuss medical therapies to help you quit Related to Tobacco use Continue to work on increasing exercise such as walking. Continue to limit salt intake. Monitor your home blood pressure. Call our office if blood pressure is consistently over 140/90 Related to Essential hypertension Monitor and let us k now if you develop any wheezing or difficulty breathing Related to Mild intermittent asthma without complication Dietary management e ducation, guidance, and counseling Related to Body mass index (BMI) 40.0-44.9, adult Work on cutting back to eventual quittingLet us know if you would like to discuss medical therapies to help you quit Related to Tobacco use Encourage healthy diet and exerc ise Related to Class 3 Obesity We will refer you to GI today Re lated to Blood in stool Continue to work on low fat diet and increase regular exercise with goal of walking at least 30 minutes 3-5 times per week Related to Hyperlipidemia, unspecified hyperlipidemia type Continue medications We will refer you to Bran Castro for continued followup Related to Coronary artery disease involving northern che[place] coronary artery of northern [place] heart without angina pectoris Monitor and let us k now if you develop any wheezing or difficulty breathing Related to Mild intermittent asthma without complication Continue to work on increasing exercise such as walking. Continue to limit salt intake. Monitor your home blood pressure. Call our office if blood pressure is consistently over 140/90 Related to Essential hypertension Monitor and let us k now if you would like referral to psychiatrist Related to Bipolar affective disorder, remission status unspecified Followup in 6 months We recommend getting the newest COVID booster at the pharmacyWe recommend getting updated on Tdap vaccine at our office or pharmacy Related to Routine medical exam Dietary management e ducation, guidance, and counseling Related to Body mass index (BMI) 40.0-44.9, adult Assessments Type Assessment Date No Information Patient Care Teams Name Effective Dates (start - stop) Status Members No Information
== END 2024-10-15 04:52 | disposition home or self-care (01) ==
PROVIDERS: Emergency Provider Emergency Medicine; PCP Internal Medicine
DX: R07.89 Other chest pain (principal); F17.210 Nicotine dependence, cigarettes, uncomplicated; Z95.5 Presence of coronary angioplasty implant and graft; Z79.82 Long term (current) use of aspirin; Z79.899 Other long term (current) drug therapy; I45.10 Unspecified right bundle-branch block; R94.31 Abnormal electrocardiogram [ECG] [EKG]
CPT/HCPCS: 36415; 71045; 80053; 83690; 83880; 84484; 85025; 85610; 85730; 93005; 96374; 99284; A9270; J2270

== ENCOUNTER 2024-11-22 09:58 | Emergency (ER) | payer OTHER, SELFPAY ==
[2024-11-22 10:10] VITALS: BP 121/68; PULSE 65; RESP 16; TEMP 35.6; O2SAT 97
--- NOTE | 2024-11-22 10:14 | ED.URI ---
HPI - URI/Sore Throat General Chief Complaint: Upper Respiratory Infection Stated Complaint: fever,fatigue,bodyaches,right upper arm numb Time Seen by Provider: 11/22/24 10:39 Source: patient and RN notes reviewed Mode of arrival: ambulatory Limitations: no limitations History of Present Illness HPI Narrative: 39-year-old male presents with concern for cough, fatigue, fever, decreased appetite, diarrhea, shortness of breath. Reports symptoms started on Wednesday. Reports he no longer has diarrhea or a fever. He has been taking Mucinex. He also reports today he started having some tingling in his right upper arm. He denies injury or trauma. Denies any chest pain, left arm pain. MD elicited complaint: cough Related Data Home Medications ?Medication ?Instructions ?Recorded ?Confirmed ?Last Taken ?Type aspirin 81 mg chewable tablet 81 mg PO DAILY 11/28/19 11/22/24 Unknown History atorvastatin 80 mg tablet 80 mg PO DAILY 11/28/19 11/22/24 Unknown History carvedilol 6.25 mg tablet (Coreg) 6.25 mg PO BID 11/28/19 11/22/24 Unknown History losartan 50 mg tablet 50 mg PO DAILY 11/28/19 11/22/24 Unknown History pantoprazole 40 mg tablet,delayed 40 mg PO DAILY 11/22/24 11/22/24 Unknown History release Allergies Allergy/AdvReac Type Severity Reaction Status Date / Time No Known Allergies Allergy Mild Verified 11/22/24 10:04 Review of Systems Review of Systems: CONSTITUTIONAL: Reports malaise, chills, sweats, fatigue EYES: Denies visual changes, redness, or discharge. ENT: Reports rhinorrhea, congestion. Denies sinus pain, otalgia and sore throat. CARDIOVASCULAR: Denies chest pain, palpitations, or edema. RESPIRATORY: Reports cough, occasional dyspnea. GASTROINTESTINAL: Denies abdominal pain, nausea, vomiting. Reports history diarrhea SKIN: Denies rash or itching. MUSCULOSKELETAL: Reports myalgia. NEUROLOGIC: Denies headache. All systems reviewed & are unremarkable except as noted in HPI and below PMFSH Social History Social History Smoking status: Never smoker Gender identity (if verbalized by the patient): Male Comments At time of signature, agree with nursing past medical, surgical, social and family history. There is no relevant family history pertinent to the presenting complaint Exam Narrative: GENERAL: Nontoxic-appearing, well-nourished, and in no acute distress. HEAD: Normocephalic EYES: PERRLA, conjunctivae clear ENT: Nares clear. Mucous membranes moist. TM pearly jacome with dull light reflex bilaterally; no tragal tenderness. Oropharynx not erythematous without lesions. Tonsils not enlarged and without exudate, no drooling, no hoarseness, no trismus, uvula midline. NECK: Supple. No lymphadenopathy CHEST: Scattered wheeze, otherwise Clear to auscultation, breath sounds equal. No wheezing, rhonchi, rales, or stridor. No respiratory distress, speaks in full sentences. HEART: Regular rate and rhythm. No murmur heard. SKIN: Warm, dry, no rash. NEURO: Alert and oriented x3. PSYCH: Normal mood and affect Course Course Emergency Course: Patient is aware of diagnosis, understands and agrees to treatment plan. Anticipatory guidance given. Patient agrees to follow-up as directed and is aware of reasons to seek care at the emergency department. Portions of this record may have been created with voice recognition software Level of Care: Express Care Visit Vital Signs Vital signs: Vital Signs Temperature 96.0 F L 11/22/24 10:10 Pulse Rate 65 11/22/24 10:10 Respiratory Rate 16 11/22/24 10:10 Blood Pressure 121/68 11/22/24 10:10 Pulse Oximetry 97 11/22/24 10:10 Oxygen Delivery Room Air 11/22/24 10:10 Temperature 96.0 F L 11/22/24 10:10 Pulse Rate 65 11/22/24 10:10 Respiratory Rate 16 11/22/24 10:10 Blood Pressure 121/68 11/22/24 10:10 Pulse Oximetry 97 11/22/24 10:10 Oxygen Delivery Room Air 11/22/24 10:10 Reviewed. MDM - URI/Sore Throat MDM Narrative Medical decision making narrative: Differential diagnosis considered: Kaur virus, strep pharyngitis, allergic rhinitis, upper respiratory tract infection, sinusitis, rhinosinusitis, nasopharyngitis. viral pharyngitis, otitis media, otitis externa, pneumonia, bronchitis, viral cough syndrome, viral syndrome, and influenza. Exam findings show no acute concerns or changes; patient is non-toxic appearing and is in no distress. Patient is appropriate for outpatient treatment and follow-up. Lab Data Attestation: I reviewed the patient's lab results. Critical Care Time Critical Care Time Critical Care Time: No Discharge Plan Discharge Clinical Impression: Lower respiratory tract infection Patient Disposition: Home, Self-Care Condition: Stable Instructions: Antibiotic Form, Acute Cough (ED) Additional Instructions: 1) Please follow-up with your primary care doctor in the next 1-2 days. 2) If you have any worsening of symptoms or any other urgent concerns please go to the ER. 3) Please take medications as prescribed and continue taking your home medications as usual. 4) Please read and follow information included in discharge instructions. Patient Language: Indonesian Prescriptions: New azithromycin [Zithromax Z-Levy] 250 mg tablet See Rx Instructions .ROUTE .COMPLEX Qty: 6 0RF Rx Instructions: take 500 mg today (day 1), then 250 mg for 4 days (days 2-5) prednisone 20 mg tablet 40 mg PO DAILY 5 Days Qty: 10 0RF No Action losartan 50 mg Tablet 50 mg PO DAILY atorvastatin 80 mg Tablet 80 mg PO DAILY carvedilol [Coreg] 6.25 mg Tablet 6.25 mg PO BID aspirin 81 mg Tablet,Chewable 81 mg PO DAILY pantoprazole 40 mg tablet,delayed release (DR/EC) 40 mg PO DAILY Follow-up/Referrals: Wyatt,Rekha Brewer MD [Primary Care Provider] - Stand Alone Forms: Work/School Release IP Time of Disposition: 10:59
[2024-11-22 10:47] LABS: EDCOVIDSCREEN Negative (Negative)
[2024-11-22 10:48] LABS: EDINFLUASCREEN Negative (Negative); EDINFLUBSCREEN Negative (Negative)
== END 2024-11-22 11:06 | disposition home or self-care (01) ==
PROVIDERS: Emergency Provider Nurse Practitioner; PCP Internal Medicine
DX: J22 Unspecified acute lower respiratory infection (principal); Z20.822 Contact with and (suspected) exposure to COVID-19; Z79.82 Long term (current) use of aspirin
CPT/HCPCS: 87426; 87804; 99213; G0463